=== PATIENT | female | born 1960 | race Caucasian/White ===

== ENCOUNTER → 2019-07-10 15:58 | Outpatient (BNVA) | payer OTHER, SELFPAY | PROVIDERS: Family Provider Family Medicine; PCP Family Medicine; Visit Provider Internal Medicine Rheumatology | DX: M05.9 Rheumatoid arthritis with rheumatoid factor, unspecified (principal); Z79.899 Other long term (current) drug therapy; Z96.653 Presence of artificial knee joint, bilateral; M20.009 Unspecified deformity of unspecified finger(s); F17.210 Nicotine dependence, cigarettes, uncomplicated; J44.9 Chronic obstructive pulmonary disease, unspecified; M85.80 Other specified disorders of bone density and structure, unspecified site; Z79.52 Long term (current) use of systemic steroids | CPT/HCPCS: 36415; 80076; 82565; 85025; 85651; 86140; 99214 ==

== ENCOUNTER 2019-07-23 09:40 | Outpatient (RCR) | payer OTHER, SELFPAY | END 2019-08-05 23:59 | disposition home or self-care (01) | LOC: SOT 09:40 | PROVIDERS: PCP Family Medicine; Referring Provider Internal Medicine Rheumatology; Visit Provider Internal Medicine Rheumatology | DX: M06.9 Rheumatoid arthritis, unspecified (principal); M20.009 Unspecified deformity of unspecified finger(s) | CPT/HCPCS: 97166; L3923 ==

== ENCOUNTER 2019-08-06 06:00 | Outpatient (RCR) | payer OTHER, SELFPAY | END 2019-09-04 23:59 | disposition home or self-care (01) | LOC: SOT 06:00 | PROVIDERS: PCP Family Medicine; Visit Provider Internal Medicine Rheumatology | DX: M06.9 Rheumatoid arthritis, unspecified (principal); M20.009 Unspecified deformity of unspecified finger(s) | CPT/HCPCS: 97018; 97110; 97530 ==

== ENCOUNTER 2019-08-09 14:04 | Outpatient (CLI) | payer OTHER, SELFPAY ==
--- NOTE | 2019-08-09 14:15 | MM_ITS ---
WS: [id number] BILATERAL SCREENING DIGITAL MAMMOGRAM WITH CAD HISTORY: SCREENING COMPARISON: 04/28/2018, 04/22/2017 Bilateral CC and MLO views submitted. Computer aided detection analyzed. Breast composition: The breasts are heterogeneously dense, which may obscure small masses. No suspici ous masses, microcalcifications or architectural distortion. Stable asymmetries and calcifications wi thin each breast. MM/[place] [id number] IMPRESSION: BI-RADS: 2-Benign FOLLOW UP: 1 Year Follow-up
== END 2019-08-09 14:05 | disposition home or self-care (01) ==
LOC: RADSHAW 14:08
PROVIDERS: PCP Family Medicine; Visit Provider Obstetrics & Gynecology
DX: M05.9 Rheumatoid arthritis with rheumatoid factor, unspecified (principal); Z79.899 Other long term (current) drug therapy; M85.80 Other specified disorders of bone density and structure, unspecified site; Z12.31 Encounter for screening mammogram for malignant neoplasm of breast
CPT/HCPCS: 36415; 77067; 80076; 82565; 85025; 85651; 86140

== ENCOUNTER 2019-09-05 06:00 | Outpatient (RCR) | payer OTHER, SELFPAY | END 2019-10-05 23:59 | disposition home or self-care (01) | LOC: SOT 06:00 | PROVIDERS: PCP Family Medicine; Visit Provider Internal Medicine Rheumatology | DX: M06.9 Rheumatoid arthritis, unspecified (principal); M20.009 Unspecified deformity of unspecified finger(s) | CPT/HCPCS: 97530; 97760 ==

== ENCOUNTER → 2019-10-09 14:45 | Outpatient (BNVA) | payer OTHER, SELFPAY | PROVIDERS: PCP Family Medicine; Visit Provider Orthopaedic Surgery | DX: M25.561 Pain in right knee (principal); M25.562 Pain in left knee; G89.29 Other chronic pain | CPT/HCPCS: 73560; 73565 ==

== ENCOUNTER → 2019-10-15 14:41 | Outpatient (BNVA) | payer OTHER, SELFPAY | PROVIDERS: PCP Family Medicine; Visit Provider Internal Medicine Rheumatology | DX: M05.79 Rheumatoid arthritis with rheumatoid factor of multiple sites without organ or systems involvement (principal); Z79.899 Other long term (current) drug therapy; Z96.653 Presence of artificial knee joint, bilateral; F17.210 Nicotine dependence, cigarettes, uncomplicated; Z79.52 Long term (current) use of systemic steroids; J44.9 Chronic obstructive pulmonary disease, unspecified; M85.80 Other specified disorders of bone density and structure, unspecified site | CPT/HCPCS: 99214 ==

== ENCOUNTER → 2019-11-05 13:55 | Outpatient (BNVA) | payer OTHER, SELFPAY | PROVIDERS: PCP Family Medicine; Visit Provider Obstetrics & Gynecology | DX: Z12.4 Encounter for screening for malignant neoplasm of cervix (principal) | CPT/HCPCS: 88175 ==

== ENCOUNTER → 2019-12-04 11:11 | Outpatient (BNVA) | payer OTHER, SELFPAY | PROVIDERS: PCP Family Medicine; Visit Provider Internal Medicine Rheumatology | DX: Z79.899 Other long term (current) drug therapy (principal); Z79.52 Long term (current) use of systemic steroids | CPT/HCPCS: 36415; 80076; 82565; 85025; 85651; 86140 ==

== ENCOUNTER 2020-01-14 14:08 | Outpatient (CLI) | payer OTHER, SELFPAY ==
--- NOTE | 2020-01-14 14:34 | XR_ITS ---
WS: [id number] Bone mineral density performed on a [employer] IDXA, 01/14/2020 Clinical data: Chronic steroid use Comparison study: DEXA scan, 09/27/2016. Findings: The first 4 lumbar vertebral bodies demonstrated the bone mineral density of 0.901 g/cm2 for a young adult T score of -2.3. Measurement of the left hip reveals a bone mineral density of 0.719 g/cm2 with a young adult T score of -2.3. Measurement of the right hip reveals the bone mineral density of 0.686 g/cm2 for young adult T score of -2.6. XR/XR DEXA axial skeleton* [id number] Impression: 1. The bone mineral density lumbar spine shows osteopenia with decreased bone m ineral compared to the prior study. 2. The bone mineral density of the left hip shows osteopenia with decreased bon e mineral compared to the prior study. 3. Bone mineral density of the right hip shows osteoporosis with decreased bone mineral compared to the prior study.
== END 2020-01-14 14:09 | disposition home or self-care (01) ==
LOC: RADWPI 14:12
PROVIDERS: PCP Family Medicine; Visit Provider Internal Medicine Rheumatology
DX: Z79.52 Long term (current) use of systemic steroids (principal)
CPT/HCPCS: 77080

== ENCOUNTER → 2020-02-14 14:14 | Outpatient (BNVA) | payer OTHER, SELFPAY | PROVIDERS: PCP Family Medicine; Visit Provider Internal Medicine Rheumatology | DX: M05.79 Rheumatoid arthritis with rheumatoid factor of multiple sites without organ or systems involvement (principal); Z79.899 Other long term (current) drug therapy; M25.561 Pain in right knee; M25.562 Pain in left knee; G89.29 Other chronic pain; Z96.653 Presence of artificial knee joint, bilateral; M81.0 Age-related osteoporosis without current pathological fracture; J44.9 Chronic obstructive pulmonary disease, unspecified; F17.210 Nicotine dependence, cigarettes, uncomplicated | CPT/HCPCS: 36415; 80076; 82565; 85025; 85651; 86140; 99214 ==

== ENCOUNTER → 2020-06-18 11:08 | Outpatient (BNVA) | payer OTHER, SELFPAY | PROVIDERS: PCP Family Medicine; Visit Provider Internal Medicine Rheumatology | DX: Z79.899 Other long term (current) drug therapy (principal); M05.79 Rheumatoid arthritis with rheumatoid factor of multiple sites without organ or systems involvement | CPT/HCPCS: 36415; 80076; 82565; 85025; 86140 ==

== ENCOUNTER → 2020-06-25 14:19 | Outpatient (BNVA) | payer OTHER, SELFPAY | PROVIDERS: PCP Family Medicine; Visit Provider Internal Medicine Rheumatology | DX: M05.79 Rheumatoid arthritis with rheumatoid factor of multiple sites without organ or systems involvement (principal); M81.0 Age-related osteoporosis without current pathological fracture; Z79.899 Other long term (current) drug therapy; J44.9 Chronic obstructive pulmonary disease, unspecified; F17.210 Nicotine dependence, cigarettes, uncomplicated | CPT/HCPCS: 99214 ==

== ENCOUNTER 2020-09-10 14:11 | Outpatient (CLI) | payer OTHER, SELFPAY ==
--- NOTE | 2020-09-10 14:17 | MM_ITS ---
WS: [id number] BILATERAL SCREENING DIGITAL MAMMOGRAM WITH CAD HISTORY: SCREENING COMPARISON: 08/09/2019, 04/28/2018 and 07/10/2014 and 04/22/2017 Bilateral CC and MLO views submitted. Computer aided detection analyzed. Breast composition: The breasts are heterogeneously dense, which may obscure small masses. No suspici ous masses, microcalcifications or architectural distortion. Bilateral breast asymmetries and calcifi cations are stable. No change since 2018. MM/[place] [id number] IMPRESSION: BI-RADS: 2-Benign FOLLOW UP: 1 Year Follow-up
== END 2020-09-10 14:12 | disposition home or self-care (01) ==
LOC: RADSHAW 14:15
PROVIDERS: PCP Family Medicine; Visit Provider Obstetrics & Gynecology
DX: Z12.31 Encounter for screening mammogram for malignant neoplasm of breast (principal)
CPT/HCPCS: 77067

== ENCOUNTER → 2020-09-25 11:13 | Outpatient (BNVA) | payer OTHER, SELFPAY | PROVIDERS: PCP Family Medicine; Visit Provider Internal Medicine Rheumatology | DX: Z79.899 Other long term (current) drug therapy (principal); M81.0 Age-related osteoporosis without current pathological fracture; M05.79 Rheumatoid arthritis with rheumatoid factor of multiple sites without organ or systems involvement; Z71.89 Other specified counseling | CPT/HCPCS: 36415 ==

== ENCOUNTER 2020-09-25 14:25 | Outpatient (CLI) | payer OTHER, SELFPAY ==
[2020-09-25 14:56] LABS: Basophils # 0.1 10^3/uL (0.0-0.1); Basophils % 0.9 %; Eosinophils % 0.2 %; Hemoglobin 14.4 g/dL (11.5-15.3); Lymphocytes # 1.3 10^3/uL (0.8-4.8); Lymphocytes % 15.8 %; Mean Corpuscular HGB Conc 32.7 g/dL (30.0-36.0); Mean Corpuscular Hemoglobin 30.5 pg (28.0-34.0); Mean Corpuscular Volume 93.2 fL (81-99); Mean Platelet Volume 10.5 fL (7.4-10.4); Monocytes # 0.5 10^3/uL (0.2-0.9); Neutrophils # 6.28 10^3/uL (1.8-7.7); Neutrophils % 76.7 %; Nucleated Red Blood Cells % 0 %; Platelet Count 356 10^3/cmm (130-400); Red Blood Count 4.72 10^6/uL (4.1-5.3); Red Cell Distribution Width 14.2 % (12.1-15.1); White Blood Count 8.2 10^3/uL (4.0-10.0)
[2020-09-25 15:12] LABS: Alanine Aminotransferase 18 U/L (0-33); Albumin Level 4.4 g/dL (3.5-5.2); Alkaline Phosphatase 85 IU/L (35-105); Aspartate Amino Transferase 17 U/L (0-32); C Reactive Protein 2.3 mg/L (0.0-4.9); Globulin 2.5 g/dL (1.3-4.6); Glomerular Filtration Rate 56.4 mL/min (90-130); Total Bilirubin 0.3 mg/dL (0.15-1.2); Total Protein 6.9 g/dL (6.6-8.7)
== END 2020-09-25 14:26 | disposition home or self-care (01) ==
LOC: LAB 14:32
PROVIDERS: PCP Family Medicine; Visit Provider Internal Medicine Rheumatology
DX: M05.79 Rheumatoid arthritis with rheumatoid factor of multiple sites without organ or systems involvement (principal); M81.0 Age-related osteoporosis without current pathological fracture; Z71.89 Other specified counseling; Z79.899 Other long term (current) drug therapy
CPT/HCPCS: 36415; 80076; 82565; 85025; 86140

== ENCOUNTER → 2020-10-01 14:14 | Outpatient (BNVA) | payer OTHER, SELFPAY | PROVIDERS: PCP Family Medicine; Visit Provider Orthopaedic Surgery | DX: Z47.1 Aftercare following joint replacement surgery (principal); Z96.653 Presence of artificial knee joint, bilateral; M25.461 Effusion, right knee | CPT/HCPCS: 73560; 73565 ==

== ENCOUNTER 2020-10-02 12:22 | Outpatient (CLI) | payer OTHER, SELFPAY ==
--- NOTE | 2020-10-02 12:45 | USCV_ITS ---
Sabrina Mendenhall Age: 60 Gender: F : 1960 Exam Date: 10/02/2020 12:37 Ordering Phys: Edmundo Molina MD Technologist: Linda Hussein [place]am [place] [facility] [place]: Left leg pain HISTORY: Left leg pain - posterior calf area PROCEDURES: On the left side, the common femoral, superficial femoral, profunda femoral, popliteal, posterior tibial, greater saphenous veins, and the peroneal trunk were identified and interrogated in the standard fashion. These veins were found to be easily compressible with spontaneous blood flow. In addition, the posterior tibial and peroneal trunk were evaluated. FINDINGS: Negative for DVT and superficial thrombus in left lower extremity CONCLUSIONS No evidence of left lower extremity DVT. Arturo Linares MD (Electronically Signed) Final Date: 02 October 2020 13:51 S
== END 2020-10-02 12:23 | disposition home or self-care (01) ==
PROVIDERS: PCP Family Medicine; Visit Provider Orthopaedic Surgery
DX: M79.662 Pain in left lower leg (principal)
CPT/HCPCS: 93971

== ENCOUNTER → 2020-10-09 14:20 | Outpatient (BNVA) | payer OTHER, SELFPAY | PROVIDERS: PCP Family Medicine; Visit Provider Internal Medicine Rheumatology | DX: M05.79 Rheumatoid arthritis with rheumatoid factor of multiple sites without organ or systems involvement (principal); M81.0 Age-related osteoporosis without current pathological fracture; M25.561 Pain in right knee; M25.562 Pain in left knee; G89.29 Other chronic pain; Z96.653 Presence of artificial knee joint, bilateral; G56.02 Carpal tunnel syndrome, left upper limb; Z79.899 Other long term (current) drug therapy; K21.9 Gastro-esophageal reflux disease without esophagitis; J44.9 Chronic obstructive pulmonary disease, unspecified; Z71.89 Other specified counseling; F17.210 Nicotine dependence, cigarettes, uncomplicated | CPT/HCPCS: 99214 ==

== ENCOUNTER → 2020-10-14 13:06 | Outpatient (BNVA) | payer OTHER, SELFPAY | PROVIDERS: PCP Family Medicine; Visit Provider Podiatrist Foot & Ankle Surgery | DX: M21.612 Bunion of left foot (principal); M77.32 Calcaneal spur, left foot | CPT/HCPCS: 73630 ==

== ENCOUNTER 2020-10-14 14:10 | Outpatient (CLI) | payer OTHER, SELFPAY | END 2020-10-14 14:11 | disposition home or self-care (01) | LOC: SPT 14:11 | PROVIDERS: PCP Family Medicine; Visit Provider Podiatrist Foot & Ankle Surgery | DX: Z46.89 Encounter for fitting and adjustment of other specified devices (principal); M20.009 Unspecified deformity of unspecified finger(s); M06.9 Rheumatoid arthritis, unspecified | CPT/HCPCS: 97760; L4361 ==

== ENCOUNTER 2020-10-23 14:54 | Outpatient (CLI) | payer OTHER, SELFPAY ==
--- NOTE | 2020-10-23 15:00 | US_ITS ---
WS: [id number] Subcutaneous ultrasound of the left second interspace of the foot, 10/23/2020 Clinical Data: pain Comparison: None. Findings: The heads of the metatarsals were identified. The soft tissue showed no abnormal signal. No Vigil's neuroma was identified. There were no cysts or masses. US/US soft tissue/extremity [id number] Impression: Negative subcutaneous ultrasound of the left second interspace of the foot.
== END 2020-10-23 14:55 | disposition home or self-care (01) ==
LOC: RAD 14:56
PROVIDERS: PCP Family Medicine; Visit Provider Podiatrist Foot & Ankle Surgery
DX: G57.62 Lesion of plantar nerve, left lower limb (principal)
CPT/HCPCS: 76882

== ENCOUNTER 2020-10-29 14:48 | Outpatient (CLI) | payer OTHER, SELFPAY ==
--- NOTE | 2020-10-29 14:52 | MR_ITS ---
WS: [id number] MRI OF THE LEFT LOWER EXTREMITY WITHOUT GADOLINIUM ENHANCEMENT INDICATION: Leg pain TECHNIQUE: Sagittal T1, sagittal STIR, coronal STIR, axial T2 FINDINGS: Postoperative changes left TKA. Susceptibly artifact degrades some images. Normal bone lemuel ow signal in the tibia. Normal fibula. Diffuse subcutaneous edema left lower leg. Recommend correlati on for cellulitis. No evidence of drainable abscess or fluid collection. No focal abnormalities in th e area of palpable concern left lower leg. Tenosynovitis along the flexor hallucis longus. MR/MR lower leg LT con* [id number] IMPRESSION: 1. Prior postoperative changes left TKA. 2. Normal bone marrow signal in the tibia and fibula. 3. No evidence of drainable abscess or fluid collection. 4. Subcutaneous edema left lower leg. Recommend correlation for cellulitis. 5. No drainable abscess or fluid collection.
== END 2020-10-29 14:49 | disposition home or self-care (01) ==
LOC: RADSHAW 14:50
PROVIDERS: PCP Family Medicine; Visit Provider Podiatrist Foot & Ankle Surgery
DX: S89.92XA Unspecified injury of left lower leg, initial encounter (principal); X58.XXXA Exposure to other specified factors, initial encounter; Z96.652 Presence of left artificial knee joint
CPT/HCPCS: 73718

== ENCOUNTER → 2020-12-03 15:03 | Outpatient (BNVA) | payer OTHER, SELFPAY | PROVIDERS: PCP Family Medicine; Referring Provider Family Medicine; Visit Provider Specialist | DX: M79.662 Pain in left lower leg (principal); G62.89 Other specified polyneuropathies; Z96.653 Presence of artificial knee joint, bilateral | CPT/HCPCS: 95908; 95909 ==

== ENCOUNTER → 2021-01-21 09:33 | Outpatient (BNVA) | payer OTHER, SELFPAY | PROVIDERS: PCP Family Medicine; Referring Provider Physical Medicine & Rehabilitation; Visit Provider Anesthesiology Pain Medicine | DX: G89.29 Other chronic pain (principal); G62.9 Polyneuropathy, unspecified; Z96.653 Presence of artificial knee joint, bilateral | CPT/HCPCS: 99204 ==

== ENCOUNTER → 2021-01-26 10:57 | Outpatient (BNVA) | payer OTHER, SELFPAY | PROVIDERS: PCP Family Medicine; Visit Provider Internal Medicine Rheumatology | DX: M81.0 Age-related osteoporosis without current pathological fracture (principal); M05.79 Rheumatoid arthritis with rheumatoid factor of multiple sites without organ or systems involvement; Z79.899 Other long term (current) drug therapy | CPT/HCPCS: 36415; 80076; 82565; 85025; 86140 ==

== ENCOUNTER 2021-05-07 16:01 | Outpatient (CLI) | payer OTHER, SELFPAY ==
[2021-05-07 15:06] LABS: Basophils # 0.1 10^3/uL (0.0-0.1); Basophils % 0.7 %; Eosinophils # 0.2 10^3/uL (0.0-0.8); Eosinophils % 2.1 %; Hematocrit 46.1 % (37.0-47.0); Hemoglobin 14.9 g/dL (11.5-15.3); Lymphocytes # 1.7 10^3/uL (0.8-4.8); Lymphocytes % 16.2 %; Mean Corpuscular HGB Conc 32.3 g/dL (30.0-36.0); Mean Corpuscular Hemoglobin 30.7 pg (28.0-34.0); Mean Corpuscular Volume 95.1 fl (81-99); Mean Platelet Volume 11.3 fL (7.4-10.4); Monocytes # 0.9 10^3/uL (0.2-0.9); Monocytes % 8.7 %; Neutrophils # 7.58 10^3/uL (1.8-7.7); Nucleated Red Blood Cells % 0 %; Platelet Count 322 10^3/cmm (130-400); Red Blood Count 4.85 10^6/uL (4.1-5.3); Red Cell Distribution Width 13.7 % (12.1-15.1); White Blood Count 10.5 10^3/uL (4.0-10.0)
[2021-05-07 15:10] LABS: Alanine Aminotransferase 10 U/L (0-33); Albumin Level 4.5 g/dL (3.5-5.2); Alkaline Phosphatase 103 IU/L (35-105); Aspartate Amino Transferase 17 U/L (0-32); C Reactive Protein 4.9 mg/L (0.0-4.9); Glomerular Filtration Rate 85.1 mL/min (90-130); Total Bilirubin 0.3 mg/dL (0.15-1.2); Total Protein 7.5 g/dL (6.6-8.7)
== END 2021-05-07 16:02 | disposition home or self-care (01) ==
LOC: LAB 16:02
PROVIDERS: PCP Family Medicine; Visit Provider Internal Medicine Rheumatology
DX: M05.79 Rheumatoid arthritis with rheumatoid factor of multiple sites without organ or systems involvement (principal); Z79.899 Other long term (current) drug therapy
CPT/HCPCS: 80076; 82565; 85025; 86140

== ENCOUNTER 2021-06-12 15:16 | Outpatient (CLI) | payer OTHER, SELFPAY ==
[2021-06-12 15:56] LABS: Basophils # 0.1 10^3/uL (0.0-0.1); Basophils % 0.9 %; Eosinophils # 0.2 10^3/uL (0.0-0.8); Eosinophils % 2.2 %; Hematocrit 45.1 % (37.0-47.0); Hemoglobin 14.4 g/dL (11.5-15.3); Lymphocytes # 1.8 10^3/uL (0.8-4.8); Lymphocytes % 19.2 %; Mean Corpuscular HGB Conc 31.9 g/dL (30.0-36.0); Mean Corpuscular Hemoglobin 30.3 pg (28.0-34.0); Mean Corpuscular Volume 94.9 fl (81-99); Mean Platelet Volume 10.6 fL (7.4-10.4); Monocytes # 0.9 10^3/uL (0.2-0.9); Monocytes % 9.7 %; Neutrophils # 6.19 10^3/uL (1.8-7.7); Neutrophils % 67.7 %; Nucleated Red Blood Cells % 0 %; Platelet Count 364 10^3/cmm (130-400); Red Blood Count 4.75 10^6/uL (4.1-5.3); Red Cell Distribution Width 13.2 % (12.1-15.1); White Blood Count 9.2 10^3/uL (4.0-10.0)
[2021-06-12 16:27] LABS: Alanine Aminotransferase 11 U/L (0-33); Albumin Level 4.3 g/dL (3.5-5.2); Alkaline Phosphatase 124 IU/L (35-105); Aspartate Amino Transferase 15 U/L (0-32); C Reactive Protein 5.1 mg/L (0.0-4.9); Glomerular Filtration Rate 85.1 mL/min (90-130); Total Bilirubin 0.2 mg/dL (0.15-1.2); Total Protein 7.3 g/dL (6.6-8.7)
== END 2021-06-12 15:17 | disposition home or self-care (01) ==
PROVIDERS: PCP Family Medicine; Visit Provider Internal Medicine Rheumatology
DX: M05.79 Rheumatoid arthritis with rheumatoid factor of multiple sites without organ or systems involvement (principal); Z79.899 Other long term (current) drug therapy; M19.90 Unspecified osteoarthritis, unspecified site
CPT/HCPCS: 80076; 82565; 85025; 86140

== ENCOUNTER 2021-09-28 12:40 | Outpatient (CLI) | payer OTHER, SELFPAY ==
--- NOTE | 2021-09-28 13:01 | MM_ITS ---
WS: [id number] BILATERAL 3D TOMOSYNTHESIS DIGITAL SCREENING MAMMOGRAPHY WITH CAD CLINICAL INFORMATION: SCREENING HISTORY: Screening mammogram. No current complaints. COMPARISON: September 10, 2020 TECHNIQUE: Bilateral CC and MLO views. FINDINGS: The breasts are composed of heterogeneous fibroglandular density tissue, which can limit the detectio n of small underlying mass lesions. Punctate and lucent centered calcifications. No suspicious mass, asymmetry, calcifications, or architectural distortion. No evidence of malignancy. MM/[place] [id number] IMPRESSION: BI-RADS: 2-Benign FOLLOW UP: 1 Year Follow-up Recommend return to annual screening mammography.
== END 2021-09-28 12:41 | disposition home or self-care (01) ==
LOC: RAD 12:41
PROVIDERS: PCP Family Medicine; Visit Provider Obstetrics & Gynecology
DX: Z12.31 Encounter for screening mammogram for malignant neoplasm of breast (principal)
CPT/HCPCS: 77063; 77067

== ENCOUNTER → 2021-09-30 16:31 | Outpatient (BNVA) | payer OTHER, SELFPAY | PROVIDERS: PCP Family Medicine; Visit Provider Clinical Nurse Specialist Adult Health | DX: J06.9 Acute upper respiratory infection, unspecified (principal); J44.1 Chronic obstructive pulmonary disease with (acute) exacerbation; U07.1 COVID-19 | CPT/HCPCS: 87426 ==

== ENCOUNTER 2021-10-27 15:37 | Outpatient (CLI) | payer OTHER, SELFPAY ==
--- NOTE | 2021-10-27 16:01 | XRR_ITS ---
PROCEDURE INFORMATION: Exam: XR Chest Exam date and time: 10/27/2021 4:03 PM Age: 61 years old Clinical indication: Cough and shortness of breath; Patient HX: Cough/ sob/ chest pain, for 3 weeks HX of covid 3 weeks ago TECHNIQUE: Imaging protocol: Radiologic exam of the chest. Views: 2 views. COMPARISON: CR Chest 2 views* [id number] 08/03/2018 2:37 PM FINDINGS: Lungs: There is chronic lung change. No acute pneumonia or edema. Pleural spaces: Unremarkable. No pleural effusion. No pneumothorax. Heart/Mediastinum: Unremarkable. No cardiomegaly. Bones/joints: There is a midthoracic spine kyphosis. There is osteopenia. XR/XR chest 2V* [id number] IMPRESSION: There are no acute concerning abnormalities.
== END 2021-10-27 15:38 | disposition home or self-care (01) ==
PROVIDERS: PCP Family Medicine; Visit Provider Family Medicine
DX: R07.9 Chest pain, unspecified (principal); R60.0 Localized edema
CPT/HCPCS: 71046

== ENCOUNTER → 2021-12-07 15:26 | Day surgery (SDC) | payer OTHER, SELFPAY | PROVIDERS: PCP Family Medicine; Visit Provider Registered Nurse Neonatal Intensive Care | DX: M25.531 Pain in right wrist (principal) | CPT/HCPCS: 73110 ==

== ENCOUNTER → 2022-01-19 14:33 | Outpatient (BNVA) | payer OTHER, SELFPAY | PROVIDERS: PCP Family Medicine; Visit Provider Family Medicine | DX: K64.9 Unspecified hemorrhoids (principal); R19.7 Diarrhea, unspecified | CPT/HCPCS: 83630; 87177; 87209; 87493; 87506 ==

== ENCOUNTER 2022-02-01 15:22 | Outpatient (CLI) | payer OTHER, SELFPAY ==
[2022-02-01 15:49] LABS: Basophils # 0.1 10^3/uL (0.0-0.1); Basophils % 0.5 %; Eosinophils # 0.3 10^3/uL (0.0-0.8); Eosinophils % 2.8 %; Hematocrit 38.1 % (37.0-47.0); Hemoglobin 12.6 g/dL (11.5-15.3); Lymphocytes # 1.1 10^3/uL (0.8-4.8); Lymphocytes % 10.1 %; Mean Corpuscular HGB Conc 33.1 g/dL (30.0-36.0); Mean Corpuscular Hemoglobin 30.5 pg (28.0-34.0); Mean Corpuscular Volume 92.3 fl (81-99); Mean Platelet Volume 9.3 fL (7.4-10.4); Monocytes # 0.8 10^3/uL (0.2-0.9); Monocytes % 7.4 %; Neutrophils # 8.12 10^3/uL (1.8-7.7); Neutrophils % 78.4 %; Nucleated Red Blood Cells % 0 %; Platelet Count 361 10^3/cmm (130-400); Red Blood Count 4.13 10^6/uL (4.1-5.3); White Blood Count 10.4 10^3/uL (4.0-10.0)
[2022-02-01 16:07] LABS: Alanine Aminotransferase 10 U/L (0-33); Alkaline Phosphatase 103 U/L (35-105); Aspartate Amino Transferase 14 U/L (0-32); C Reactive Protein 18.7 mg/L (0.0-4.9); Globulin 2.7 g/dL (1.3-4.6); Glomerular Filtration Rate 72.7 mL/min (90-130); Total Bilirubin 0.2 mg/dL (0.15-1.2); Total Protein 6.7 g/dL (6.6-8.7)
== END 2022-02-01 15:23 | disposition home or self-care (01) ==
PROVIDERS: PCP Family Medicine; Visit Provider Internal Medicine Rheumatology
DX: M05.79 Rheumatoid arthritis with rheumatoid factor of multiple sites without organ or systems involvement (principal); Z79.899 Other long term (current) drug therapy
CPT/HCPCS: 80076; 82565; 85025; 86140

== ENCOUNTER 2022-03-02 15:11 | Outpatient (CLI) | payer OTHER, SELFPAY ==
--- NOTE | 2022-03-02 15:00 | USCV_ITS ---
Sabrina Mendenhall Age: 61 Gender: F : 1960 Exam Date: 03/02/2022 15:24 Ordering Phys: Gunnar Corey MD Technologist: PANCHO [place] [facility] [place]: CHEST PAIN BP: 92 / 68 HR: 60 Rhythm: Sinus Technical Quality: Adequate MEASUREMENTS (Male / Female) Normal Values 2D ECHO LVOT Diameter 2.0 cm LV Ejection Fraction MOD 2C 69.2 % LV Ejection Fraction 2C AL 71.2 % LA Diameter 2.9 cm LA Width 2.7 cm LA Height 4.1 cm RA Width 2.7 cm RA Height 3.4 cm Aorta at Sinotubular Diameter 2.3 cm IVC Diameter 1.3 cm M-MODE Aortic Annulus Diameter 2.6 cm LA Ao Ratio MM 1.2 MV E Point Septal Separation 0.3 cm DOPPLER AV Peak Velocity 133.0 cm/s LVOT Peak Velocity 74.7 cm/s AV Area Cont Eq vti 1.7 cm squared AV Area Cont Eq pk 1.8 cm squared MV Peak Velocity 90.0 cm/s MV Area PHT 2.8 cm squared Mitral E to A Ratio 1.2 MV E' Velocity 48.0 cm/s Mitral E to MV E' Ratio 7.2 Mitral E to LV E' Lateral Ratio 6.9 Mitral E to LV E' Septal Ratio 7.5 TR Peak Velocity 179.0 cm/s TR Peak Gradient 12.8 mmHg TR Mean Velocity 217.2 cm/s TR Mean Gradient 20.2 mmHg TR Velocity Time Integral 82.9 cm Right Atrial Pressure 3.0 mmHg Pulmonary Artery Systolic Pressu 15.8 mmHg PV Peak Velocity 104.0 cm/s RV Acceleration Time 0.1 s RV Ejection Time 0.3 s RV AcT/ET 0.5 FINDINGS Left Ventricle Normal left ventricular size, systolic function and wall thickness, with no regional wall motion abnormalities. Left ventricular ejection fraction is estimated at 60 %. Normal diastolic function. Right Ventricle Normal right ventricular size and systolic function. Right ventricular systolic pressure 32 mmHg. Right Atrium Normal right atrial size. Left Atrium Normal left atrial size. Mitral Valve Structurally normal mitral valve. No mitral valve stenosis. No mitral valve stenosis. No mitral valve regurgitation. Aortic Valve Structurally normal trileaflet aortic valve. No aortic valve stenosis. No aortic valve regurgitation. Tricuspid Valve Structurally normal tricuspid valve. No tricuspid valve stenosis. Trace to mild tricuspid valve regurgitation. Pulmonic Valve Pulmonic valve not well visualized. Pericardium No pericardial effusion. Aorta Normal size aortic root and proximal ascending aorta. IVC Normal IVC dimension with >50% respiratory change of the inferior vena cava. CONCLUSIONS 1. Normal left ventricular size, systolic function and wall thickness, with no regional wall motion abnormalities. Left ventricular ejection fraction is estimated at 60 %. Normal diastolic function. 2. Trace to mild tricuspid valve regurgitation. 3. Pulmonary artery pressure estimated at 32 mm Hg. 4. No prior similar studies to compare. Amena Jiang MD (Electronically Signed) Final Date: 06 March 2022 15:35 S
== END 2022-03-02 15:12 | disposition home or self-care (01) ==
LOC: RAD 15:12
PROVIDERS: PCP Family Medicine; Visit Provider Family Medicine
DX: R07.9 Chest pain, unspecified (principal); R60.0 Localized edema; I07.1 Rheumatic tricuspid insufficiency
CPT/HCPCS: 93306

== ENCOUNTER 2022-03-25 05:12 | Inpatient (IN) | payer OTHER, SELFPAY ==
[2022-03-25] VITALS (19 sets, daily range): BP systolic 101–123; BP diastolic 67–83; PULSE 81–98; RESP 18–28; TEMP 36.4–36.8; O2SAT 90–95; BMI 24.0
--- NOTE | 2022-03-25 05:13 | XRR_ITS ---
PROCEDURE INFORMATION: Exam: XR Chest Exam date and time: 03/25/2022 5:16 AM Age: 61 years old Clinical indication: Shortness of breath; Left-sided; Prior surgery; Surgery type: Cervical fusion. RT rotator cuff. Patient HX: C/O left sided chest pain with SOB. Hypoxic on room air. ; Additional info: Cp TECHNIQUE: Imaging protocol: Radiologic exam of the chest. Views: 1 view. COMPARISON: CR XR chest 2V* [id number] 27/10/2021 16:03 FINDINGS: Lungs: Advanced COPD. Bibasilar opacities and small effusions have increased. Increasing right midlung hazy airspace disease. Pleural spaces: No pneumothorax. Heart/Mediastinum: The heart is normal size. Bones/joints: Lower cervical fusion. Mild scoliosis. Right humeral head screw. XR/XR chest 1V portable [id number] IMPRESSION: 1. Increasing areas of chgt-ynmbbil-krbq-right bibasilar atelectasis or airspace disease and small effusions. 2. Increasing right midlung atelectasis, scarring, or pneumonitis. 3. COPD and other chronic findings again noted.
--- NOTE | 2022-03-25 05:19 | ED_ITS ---
Documented by User: Colt Valle MD 03/25/22 05:35 HPI - Chest Pain General: Chief Complaint: Chest Pain Stated Complaint: CP Time Seen by Provider: 03/25/22 05:12 Source: patient and EMS Mode of arrival: EMS Limitations: no limitations History of Present Illness: 61-year-old female who states that she has had a chronic cough since having COVID last year she states the cough is worsened states that she has been having some sharp chest pains to the left side of her chest since this morning. When EMS arrived patient was hypoxic she is requiring 2 to 3 L of oxygen here. She had some mild dyspnea she denies any worsening improving factors denies any vomiting. Associated symptoms: Deny abdominal pain, dyspnea, fever(s), nausea or vomiting Review of Systems Const: Denies: fever(s), chills, body aches or change in appetite Eyes: Denies: blurry vision or eye discomfort ENMT: Denies: throat pain or dental pain Card: Reports: chest pain Resp: Denies: dyspnea GI: Denies: abdominal pain, nausea, vomiting or diarrhea : Denies: dysuria Musc: Denies: neck pain or back pain Skin/Breast: Denies: rash Neuro: Denies: headache(s) Psych: Denies: depression Colt/Lymph: Denies: easy bruising All/Imm: Denies: urticaria PFSH ED PFSH: Medical History Benign essential HTN Diagnosed in 2019 and is well controlled by medications managed by [facility]. 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 S/P right rotator cuff repair Performed in June of 2012 S/P tubal ligation Performed in the early Status post bilateral knee replacements Performed in 2018 Family History Father Hyperlipidemia Hypertension Grandmother Stroke paternal Heart disease paternal Mother Heart disease Denies family history of Colon cancer Ovarian cancer Diabetes DVT (deep venous thrombosis) Breast cancer Anesthesia complication Bleeding disorder Pulmonary embolism Uterine cancer Thyroid condition Social History Smoking and tobacco status: current every day smoker cigarettes [ Other cigaret te details: started at age 16] Alcohol intake: current Alcohol intake frequency: holidays/special occasions only Current occupational status: employed Current occupation: [employer] History of recent travel: No Additional social history: has a suppressed immune system Physical Exam Const: COMMON NORMALS: patient oriented x3 HENMT: COMMON NORMALS: normocephalic and atraumatic HEAD & SCALP: normocephalic and atraumatic Eye: COMMON NORMALS: Equal, round and reactive pupils present and EOMs intact bilaterally PUPIL: Yes Equal, round and reactive pupils present Neck/C-Spine: COMMON NORMALS: full ROM and supple Chest: COMMONS NORMALS: normal inspection of the chest OTHER: point tender over left chest Resp: COMMON NORMALS: No retractions and No use of accessory muscles AUSCULTATION: rales and wheezes Cardio: COMMON NORMALS: regular rate, regular rhythm and No murmurs present (Cardio) RATE: regular rate RHYTHM: regular rhythm GI: COMMON NORMALS: Normal to inspection, nondistended, normoactive bowel sounds present, Soft to palpation, non-tender and no masses PALPATION: Yes Soft to palpation Extremity: COMMON NORMALS: normal to inspection and full ROM Neuro: COMMON NORMALS: patient oriented x3, moves all extremities and no focal motor deficits Psych: COMMON NORMALS: mental status grossly normal, Normal thought process present and cooperative THOUGHT PROCESS: Normal thought process present Skin: COMMON NORMALS: no rashes or lesions noted and no wounds GENERAL SKIN EXAM: no rashes or lesions noted Course Vital Signs: Vital signs: Vital Signs Pulse Rate 90 03/25/22 09:05 Respiratory Rate 28 H 03/25/22 08:00 Blood Pressure 120/80 03/25/22 09:05 Pulse Oximetry 93 03/25/22 09:05 Oxygen Delivery Me thod 03/25/22 09:05 Oxygen Flow Rate 3 03/25/22 09:05 MDM - Chest Pain Lab Data 03/25/22 05:35 03/25/22 05:35 Radiology Impressions Chest X-Ray 03/25/22 05:13 IMPRESSION: 1. Increasing areas of mfbw-hshcklk-obxk-right bibasilar atelectasis or airspace disease and small effusions. 2. Increasing right midlung atelectasis, scarring, or pneumonitis. 3. COPD and other chronic findings again noted. Chest CTA 03/25/22 06:42 IMPRESSION: 1. 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 2. Tiny subacute to chronic pulmonary embolus in the right lower lobe. ADDENDUM: 03/25/22 0821 THIS REPORT CONTAINS FINDINGS THAT MAY BE CRITICAL TO PATIENT CARE. The exam findings were verbally communicated by me via telephone conference to BENJIE BEASLEY at 8:12 AM SPEECH PATHOLOGY TEACHER on 03/25/2022. The findings were acknowledged and understood. Laboratory Results WBC 17.2 10^3/uL (4.0-10.0) H 03/25/22 05:35 RBC 4.68 10^6/uL (4.1-5.3) 03/25/22 05:35 Hgb 14.4 g/dL (11.5-15.3) 03/25/22 05:35 Hct 43.2 % (37.0-47.0) 03/25/22 05:35 MCV 92.3 fl (81-99) 03/25/22 05:35 MCH 30.8 pg (28.0-34.0) 03/25/22 05:35 MCHC 33.3 g/dL (30.0-36.0) 03/25/22 05:35 RDW 13.8 % (12.1-15.1) 03/25/22 05:35 Plt Count 371 10^3/cmm (130-400) 03/25/22 05:35 MPV 9.3 fL (7.4-10.4) 03/25/22 05:35 Neut % (Auto) 84.6 % 03/25/22 05:35 Lymph % (Auto) 2.4 % 03/25/22 05:35 [place] % (Auto) 10.0 % 03/25/22 05:35 Eos % (Auto) 1.9 % 03/25/22 05:35 Baso % (Auto) 0.5 % 03/25/22 05:35 Neut # (Auto) 14.54 10^3/uL (1.8-7.7) H 03/25/22 05:35 Lymph # (Auto) 0.4 10^3/uL (0.8-4.8) L 03/25/22 05:35 [place] # (Auto) 1.7 10^3/uL (0.2-0.9) H 03/25/22 05:35 Eos # (Auto) 0.3 10^3/uL (0.0-0.8) 03/25/22 05:35 Baso # (Auto) 0.1 10^3/uL (0.0-0.1) 03/25/22 05:35 Nucleated RBC % (auto) 0 % 03/25/22 05:35 Nucleated RBCs # 0.0 /100WBC 03/25/22 05:35 D-Dimer 3.83 ug/mIFEU (0-0.59) H 03/25/22 05:35 Sodium 133 mmol/L (136-145) L 03/25/22 05:35 Potassium 4.2 mmol/L (3.5-5.1) 03/25/22 05:35 Chloride 96 mmol/L (98-107) L 03/25/22 05:35 Carbon Dioxide 22 mmol/L (22-29) 03/25/22 05:35 Anion Gap 19.2 (5-19) H 03/25/22 05:35 BUN 18 mg/dL (8-23) 03/25/22 05:35 Creatinine 0.8 mg/dL (0.5-0.9) 03/25/22 05:35 GFR Calculation 72.7 mL/min (90-130) L 03/25/22 05:35 Glucose 108 mg/dL (65-115) 03/25/22 05:35 Calculated Osmolality 278 mOsm/kg (285-295) L 03/25/22 05:35 Calcium 9.3 mg/dL (8.5-10.5) 03/25/22 05:35 Total Bilirubin 0.5 mg/dL (0.15-1.2) 03/25/22 05:35 AST 10 U/L (0-32) 03/25/22 05:35 ALT 9 U/L (0-33) 03/25/22 05:35 Alkaline Phosphatase 90 U/L (35-105) 03/25/22 05:35 Troponin T Baseline 12 ng/L (0-10) H 03/25/22 05:35 Troponin T 120 Minute 9.56 ng/L (0-10) 03/25/22 07:50 Delta Troponin T -2.44 ABS# (0-10) L 03/25/22 07:50 Total Protein 7.4 g/dL (6.6-8.7) 03/25/22 05:35 Albumin 4.1 g/dL (3.5-5.2) 03/25/22 05:35 Globulin 3.3 g/dL (1.3-4.6) 03/25/22 05:35 Influenza Type A Ag negative (Negative) 03/25/22 05:35 Influenza Type B Ag negative (Negative) 03/25/22 05:35 SARS-CoV-2 Ag (Rapid) negative (Negative) 03/25/22 05:35 Discharge Plan Discharge Patient Disposition: Admitted As Inpatient Clinical Impression: Pneumonia, Acute exacerbation of chronic obstructive pulmonary disease (COPD), Acute respiratory failure with hypoxia, Mass of right lung Condition: Stable Prescriptions: No Action albuterol sulfate 90 mcg/actuation HFA aerosol inhaler 1 inh inhalation QID PRN (Reason: shortness of breath or wheezing) Qty: 8.5 1RF Xeljanz 5 mg tablet 5 mg PO BID Qty: 60 4RF prednisone 5 mg tablet 5 mg PO DAILY Qty: 90 1RF gabapentin 400 mg capsule 400 mg PO TID potassium chloride [Klor-Con 10] 10 mEq tablet extended release 10 meq PO DAILY Qty: 30 6RF Rx Instructions: Take one tab daily on days that you are taking furosemide amlodipine 10 mg tablet 5 mg PO DAILY furosemide 20 mg tablet See Rx Instructions .ROUTE .COMPLEX Qty: 30 3RF Dose Instruction: TAKE ONE TABLET BY MOUTH IN THE MORNING FOR TWO weeks THEN NEEDED FOR swelling Rx Instructions: TAKE ONE TABLET BY MOUTH IN THE MORNING FOR TWO weeks THEN NEEDED FOR swelling Vitamin B-12 100 mcg Tablet 100 mcg PO DAILY omeprazole 40 mg capsule,delayed release(DR/EC) 40 mg PO DAILY lisinopril-hydrochlorothiazide 10-12.5 mg tablet 1 tab PO DAILY Referrals: Gunnar Corey MD [Primary Care Provider] - Coding Level of Care Code ED Marketing Communications Coordinator for Chg Fwd Exam Comprehensive Documented by User: Benjie Beasley DO 03/25/22 09:22 HPI - Chest Pain General: Chief Complaint: Chest Pain Stated Complaint: CP Time Seen by Provider: 03/25/22 05:12 PFSH ED PFSH: Medical History Benign essential HTN Diagnosed in 2018 and is well controlled by medications managed by her primary care provider. 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 Bilateral lower extremity edema Hemorrhoids High risk medication use Immunization counseling Seropositive rheumatoid arthritis of multiple sites Surgical History S/p bilateral carpal tunnel release Left side performed in January, Right side performed in March, S/P cervical spinal fusion Performed in January 2009 S/P dilation and curettage Had 3 D&Cs performed for miscarriages and the last for gestational tropho blastic disease S/P right rotator cuff repair Performed in June of 2012 S/P tubal ligation Performed in the early Status post bilateral knee replacements Performed in 2018 Family History Father Hyperlipidemia Hypertension Grandmother Stroke paternal Heart disease paternal Mother Heart disease Denies family history of Colon cancer Ovarian cancer Diabetes DVT (deep venous thrombosis) Breast cancer Anesthesia complication Bleeding disorder Pulmonary embolism Uterine cancer Thyroid condition Social History Smoking and tobacco status: current every day smoker cigarettes [ Other cigarette details: started at age 16] Alcohol intake: current Alcohol intake frequency: holidays/special occasions only Current occupational status: employed Current occupation: [employer] History of recent travel: No Additional social history: has a suppressed immune system Course Vital Signs: Vital signs: Vital Signs Pulse Rate 90 03/25/22 09:05 Respiratory Rate 28 H 03/25/22 08:00 Blood Pressure 120/80 03/25/22 09:05 Pulse Oximetry 93 03/25/22 09:05 Oxygen Delivery Me thod 03/25/22 09:05 Oxygen Flow Rate 3 03/25/22 09:05 MDM - Chest Pain Medical Decision Making Patient care assumed from Dr. Valle at change of shift she has a pneumonia with a white count of 17,[address] shows right hilar mass with s ignificant mediastinal lymphadenopathy likely bronchogenic in nature. There is a chronic distal right lower lung segment very small PE. Discussed with radiologist he did not feel it was acute. She also has left lower lung consolidation. She is requiring 4 L by nasal cannula now and will require admission to the hospital and further work-up at some point of the concerning findings in the right hilum. Medical Records I reviewed the patient's medical records. Lab Data I reviewed the patient's lab results. 03/25/22 05:35 03/25/22 05:35 Radiology Impressions Chest X-Ray 03/25/22 05:13 IMPRESSION: 1. Increasing areas of xhlb-jdhnqqg-xdsw-right bibasilar atelectasis or airspace disease and small effusions. 2. Increasing right midlung atelectasis, scarring, or pneumonitis. 3. COPD and other chronic findings again noted. Chest CTA 03/25/22 06:42
--- NOTE | 2022-03-25 05:33 | ECG_ITS ---
[facility] Test Date: 2022-03-25 Pat Name: Sabrina Mendenhall Department: Room: Gender: Female Qualitative Field Project Manager: : 1960 Requested By: Colt Valle Order Number: [id number] Cristhian MD: Tenzin Weiss M.D. Measurements Intervals [place] Rate: 87 P: 70 IA: 126 QRS: 56 QRSD: 71 T: 78 QT: 350 QTc: 423 Interpretive Statements SINUS RHYTHM Compared to ECG 08/03/2018 14:09:46 No significant changes Electronically Signed On 03-25-2022 14:44:34 PROVIDER ENGAGEMENT EXECUTIVE by Tenzin Weiss M.D. [id number]
[2022-03-25 05:45] LABS: Basophils # 0.1 10^3/uL (0.0-0.1); Basophils % 0.5 %; Eosinophils # 0.3 10^3/uL (0.0-0.8); Eosinophils % 1.9 %; Hematocrit 43.2 % (37.0-47.0); Hemoglobin 14.4 g/dL (11.5-15.3); Lymphocytes # 0.4 10^3/uL (0.8-4.8); Lymphocytes % 2.4 %; Mean Corpuscular HGB Conc 33.3 g/dL (30.0-36.0); Mean Corpuscular Hemoglobin 30.8 pg (28.0-34.0); Mean Corpuscular Volume 92.3 fl (81-99); Mean Platelet Volume 9.3 fL (7.4-10.4); Monocytes # 1.7 10^3/uL (0.2-0.9); Neutrophils # 14.54 10^3/uL (1.8-7.7); Neutrophils % 84.6 %; Nucleated Red Blood Cells % 0 %; Platelet Count 371 10^3/cmm (130-400); Red Blood Count 4.68 10^6/uL (4.1-5.3); Red Cell Distribution Width 13.8 % (12.1-15.1); White Blood Count 17.2 10^3/uL (4.0-10.0)
[2022-03-25] MEDS: cefTRIAXone 1,000 MG in sodium chloride 0.9% (plus) 50 ML 100 MG IV (05:51)
[2022-03-25] MEDS: azithromycin 500 MG in sodium chloride 0.9% 250 ML 250 MG IV (05:51)
[2022-03-25] MEDS: albuterol 2.5 mg/3 mL Neb INHALATION (06:00)
[2022-03-25] MEDS: ipratropium 0.5 mg/2.5 mL Neb INHALATION (06:00)
[2022-03-25 06:03] LABS: Alanine Aminotransferase 9 U/L (0-33); Albumin Level 4.1 g/dL (3.5-5.2); Alkaline Phosphatase 90 U/L (35-105); Anion Gap 19.2 (5-19); Aspartate Amino Transferase 10 U/L (0-32); Blood Urea Nitrogen 18 mg/dL (8-23); Calcium 9.3 mg/dL (8.5-10.5); Carbon Dioxide 22 mmol/L (22-29); Chloride 96 mmol/L (98-107); Globulin 3.3 g/dL (1.3-4.6); Glomerular Filtration Rate 72.7 mL/min (90-130); Glucose 108 mg/dL (65-115); Osmolality Calculated 278 mOsm/kg (285-295); Potassium 4.2 mmol/L (3.5-5.1); Sodium 133 mmol/L (136-145); Total Bilirubin 0.5 mg/dL (0.15-1.2); Total Protein 7.4 g/dL (6.6-8.7)
[2022-03-25 06:04] LABS: Troponin(5th) Baseline 12 ng/L (0-10)
[2022-03-25 06:11] LABS: Influenza A by IFA negative (Negative); Influenza B by IFA negative (Negative)
[2022-03-25 06:21] LABS: D Dimer 3.83 ug/mIFEU (0-0.59)
[2022-03-25 06:34] LABS: SARS Covid-2 Antigen negative (Negative)
--- NOTE | 2022-03-25 06:42 | CTR_ITS ---
PROCEDURE INFORMATION: Exam: CTA Chest With Contrast Exam date and time: 03/25/2022 7:36 AM Age: 61 years old Clinical indication: Abnormal findings; Abnormal diagnostic tests; Elevated d-dimer; Cough and shortness of breath; Additional info: Dyspnea/elevated d dimer/hypoxia TECHNIQUE: Imaging protocol: Computed tomographic angiography of the chest with contrast. 3D rendering (Not supervised by radiologist): MIP and/or 3D reconstructed images were created by the technologist. Radiation optimization: All CT scans at this facility use at least one of these dose optimization techniques: automated exposure control; mA and/or kV adjustment per patient size (includes targeted exams where dose is matched to clinical indication); or iterative reconstruction. Contrast material: OMNI 350; Contrast volume: 100 ml; Contrast route: INTRAVENOUS (IV); COMPARISON: 1. XR CHEST 03/25/2022 5:16 AM 2. XR CHEST 10/27/2021 4:03 PM RADIATION DOSE METRICS: Total DLP (mGy-cm): 297.18 FINDINGS: Pulmonary arteries: There is a tiny eccentric intraluminal filling defect in a right lower lobe pulmonary artery branch. The filling defect appears to be adherent to the lateral wall of the vessel. Favor subacute to chronic pulmonary embolism. Aorta: No thoracic aortic aneurysm or dissection. Lungs: There is a 1.6 cm noncalcified, irregular/spiculated mass in the posterior right upper lobe (7:148). There is a 2.2 cm necrotic mass adjacent to the right minor fissure (8:18). There is a patchy increase in the interstitial markings in the right lung, potentially due to lymphangitic spread of malignancy. There is inferior left basilar consolidation/atelectasis. Pleural spaces: Small left pleural effusion with a subpulmonic component. There is fluid in the right minor fissure. No pneumothorax. Heart: The heart is not enlarged. There is a mild pericardial effusion. Heart RV/LV ratio: The RV/LV ratio is approximately 1.05. Coronary arteries: Calcified coronary artery atherosclerotic plaque visualized. Lymph nodes: There is right hilar and mediastinal lymphadenopathy. Bones/joints: Slight curvature of the thoracic spine convex to the right associated with multilevel disc degeneration. Prior anterior cervical fusion. Soft tissues: No acute soft tissue abnormality. CT/CT angio chest PE protcl [id number] IMPRESSION: 1. 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 2. Tiny subacute to chronic pulmonary embolus in the right lower lobe.
--- NOTE | 2022-03-25 07:13 | ECG_ITS ---
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 Measurements Intervals [place] Rate: 93 P: 70 MT: 135 QRS: 59 QRSD: 76 T: 67 QT: 356 QTc: 445 Interpretive Statements SINUS RHYTHM Compared to ECG 03/25/2022 05:33:16 No significant changes Electronically Signed On 03-25-2022 14:48:28 DUMP MOTORMAN by Tenzin Weiss M.D. [id number]
[2022-03-25 08:22] LABS: Troponin 5 2HR 9.56 ng/L (0-10)
[2022-03-25] MEDS: enoxaparin 60 mg/0.6 mL Syringe 65 MG SUBCUT (09:11)
[2022-03-25 09:13] LABS: Troponin 5 2HR Delta -2.44 ABS# (0-10)
--- NOTE | 2022-03-25 10:11 | PM.HP ---
Providers/Chief Complaint Admitting Physician: Jefry Gutiérrez MD, hospitalist Primary Care Provider: Gunnar Corey MD Chief Complaint: CP History of Present Illness Sabrina Mendenhall is a 61 year old female who presents to the hospital with shortness of breath, and chest discomfort on the left side, underneath her left breast and around her left ear. She reports the chest discomfort was very sharp in nature, and it is gone since receiving medicine in the ER. She reports she gets a little bit more short of breath with laying down. She wheezes on occasion. She has been smoking most of her life. She is under stress lately caring for her with lung cancer at home. She had COVID, in October and has had a persistent cough since that time. No hemoptysis, or fever. She has not required oxygen. She is on treatment for rheumatoid arthritis and is on daily steroids. Review of Systems General: Reports: 10 or more systems reviewed and unremarkable except in HPI and below Const: Denies: fever(s) or chills Eyes: Denies: change in vision ENMT: Denies: throat pain Card: Reports: chest pain Resp: Reports: dyspnea GI: Denies: abdominal pain, hematochezia or melena : Denies: flank pain Musc: Denies: neck pain Skin/Breast: Denies: rash Neuro: Denies: headache(s) Psych: Denies: anxiety or depression Endo: Denies: polyuria Colt/Lymph: Denies: easy bruising All/Imm: Denies: urticaria Medications/Allergies Home Medications Medication Instructions Recorded Confirmed Last Taken Type albuterol sulfate 90 mcg/actuation 1 inh inhalation QID PRN shortness 09/30/21 03/25/22 Unknown Rx aerosol inhaler of breath or wheezing #8.5 grams gabapentin 400 mg capsule 400 mg PO TID 10/06/21 03/25/22 03/23/22 History amlodipine 10 mg tablet 5 mg PO DAILY 10/27/21 03/25/22 03/23/22 History potassium chloride 10 mEq 10 meq PO DAILY #30 tabs 10/27/21 03/25/22 Unknown Rx tablet,extended release (Klor-Con) furosemide 20 mg tablet See Rx Instructions .Route 12/14/21 03/25/22 Unknown Rx .COMPLEX #30 tabs prednisone 5 mg tablet 5 mg PO DAILY #90 tabs 02/08/22 03/25/22 03/23/22 Rx tofacitinib 5 mg tablet (Xeljanz) 5 mg PO BID #60 tabs 02/08/22 03/25/22 03/23/22 Rx cyanocobalamin (vitamin B-12) 100 100 mcg PO DAILY 03/25/22 03/25/22 03/23/22 History mcg tablet (Vitamin B-12) lisinopril 10 1 tab PO DAILY 03/25/22 03/25/22 03/23/22 History mg-hydrochlorothiazide 12.5 mg tablet omeprazole 40 mg capsule,delayed 40 mg PO DAILY 03/25/22 03/25/22 03/23/22 History release Allergies Allergy/AdvReac Type Severity Reaction Status Date / Time No Known Allergies Allergy Verified 03/25/22 08:07 PFSH Acute PFSH: Medical History (Updated 03/25/22 @ 10:20 by Jefry Gutiérrez MD) Benign essential HTN Diagnosed in 2018 and is well controlled by medications managed by her primary care provider. 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 S/P right rotator cuff repair Performed in June of 2012 S/P tubal ligation Performed in the early Status post bilateral knee replacements Performed in 2018 Family History Father Hyperlipidemia Hypertension Grandmother Stroke paternal Heart disease paternal Mother Heart disease Denies family history of Colon cancer Ovarian cancer Diabetes DVT (deep venous thrombosis) Breast cancer Anesthesia complication Bleeding disorder Pulmonary embolism Uterine cancer Thyroid condition Social History Smoking and tobacco status: current every day smoker cigarettes [ Other cigarette details: started at age 16] Alcohol intake: current Alcohol intake frequency: holidays/special occasions only Current occupational status: employed Current occupation: [employer] History of recent travel: No Additional social history: has a suppressed immune system Vitals/I&O/Wt Last Vital Signs Pulse 93 03/25/22 09:59 Resp 23 H 03/25/22 09:59 BP 114/79 03/25/22 09:59 Pulse Ox 95 03/25/22 09:59 O2 Del Method 03/25/22 09:59 O2 Flow Rate 3 03/25/22 09:59 03/24/22 03/25/22 03/25/22 22:59 06:59 14:59 Intake Total 50 / 50 250 / 250 Balance 50 / 50 250 / 250 Weight last 48 hrs Weight 63.503 kg Physical Exam Narrative: General exam is a white female, no distress, on 4 L of oxygen HEENT: Atraumatic and normocephalic. Pupils equally round. Oropharynx is clear. Neck is supple no lymphadenopathy or thyromegaly Cardiovascular regular rate and rhythm without murmur Lungs diminished breath sounds bilaterally. Few dry crackles bilaterally. Abdomen is soft with positive bowel sounds. No obvious organomegaly exam is deferred Extremities no cyanosis clubbing or edema, cap refill brisk Skin no rash Neuro no obvious focal deficits. Data 03/25/22 05:35 03/25/22 05:35 Other Labs: Dimer elevated at 3.83 LFTs normal Troponin 12 with repeat of 10 Influenza antigen, rapid COVID all negative CTA of chest demonstrates findings compatible with malignancy right lung with mediastinal spread and a teeny subacute to chronic pulmonary embolism right lower lobe Echo in February 2022 demonstrated a normal EF, pulmonary artery pressure of 32 EKG demonstrates normal sinus rhythm, normal axis, essentially normal EKG Micro: Microbiology 03/25/22 05:47 Blood Culture - Preliminary Blood SPECIMEN COLLECTED 03/25/22 05:46 Blood Culture - Preliminary Blood SPECIMEN COLLECTED A&P Assessment and plan (1) Pulmonary embolism: Patient with small pulmonary embolism on CTA Initiate Lovenox 1 mg/kg every 12 hours Transition to oral agent when appropriate (2) Pneumonia: Rocephin and azithromycin started in the emergency department. Continue. Sputum culture (3) Acute respiratory failure with hypoxia: Oxygen as needed, wean as tolerated (4) Mass of right lung: New diagnosis of mass of right lung. I will try to touch base with pulmonary as bronchoscopy may be the best way to approach this. He could potentially be done outpatient (5) Seropositive rheumatoid arthritis of multiple sites: Continue chronic steroids Hold tafacitamab in face of pneumonia Plan Other medical problems as outlined in past medical history Full code Lovenox will suffice for DVT prophylaxis Attestations Medical Necessity Statement*: Will need greater than 2 midnight stay for evaluation and treatment of pulmonary embolism, hypoxia, pneumonia Coding Level of Care Code Acute Code for [facility] Fwd Diagnoses Pulmonary embolism I26.99 Pneumonia J18.9 Acute respiratory failure with hypoxia J96.01 Mass of right lung R91.8 Seropositive rheumatoid arthritis of multiple sites M05.79
[2022-03-25 10:43] LABS: NT Pro B Type Natriuretic Pept 31 pg/mL (0-125)
--- NOTE | 2022-03-25 11:13 | ECG_ITS ---
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 Measurements Intervals [place] Rate: 84 P: 54 OR: 138 QRS: 6 QRSD: 89 T: 26 QT: 373 QTc: 441 Interpretive Statements SINUS RHYTHM Compared to ECG 03/25/2022 07:26:23 No significant changes Electronically Signed On 03-25-2022 14:46:58 ENVELOPE STAMPING MACHINE OPERATOR by Tenzin Weiss M.D. [email or web address] [id number]
[2022-03-25] MEDS: ipratropium-albuterol 3 mL Neb INHALATION ×2 (11:38→21:26)
[2022-03-25 12:26] LABS: Troponin 5 6HR 8.58 ng/L (0-10)
[2022-03-25 12:36] LABS: Troponin 5 6HR Delta -3.42 ng/L (0-12)
[2022-03-25] MEDS: gabapentin 400 mg Capsule PO ×2 (14:48→20:37)
[2022-03-25] MEDS: acetaminophen 325 mg Tablet 650 MG PO (20:37)
[2022-03-25] MEDS: enoxaparin 60 mg/0.6 mL Syringe SUBCUT (20:37)
[2022-03-25] MEDS: budesonide 0.5 mg/2 mL Neb INHALATION (21:26)
[2022-03-26] VITALS (14 sets, daily range): BP systolic 94–119; BP diastolic 57–78; PULSE 64–90; RESP 15–18; TEMP 36.2–36.7; O2SAT 88–100
[2022-03-26] MEDS: cefTRIAXone 1,000 MG in sodium chloride 0.9% (plus) 50 ML 100 MG IV (05:03)
[2022-03-26] MEDS: azithromycin 500 MG in sodium chloride 0.9% 250 ML 250 MG IV (05:38)
[2022-03-26 05:59] LABS: Basophils % 0.1 %; Eosinophils % 0.2 %; Hematocrit 40.6 % (37.0-47.0); Hemoglobin 13.4 g/dL (11.5-15.3); Lymphocytes # 0.3 10^3/uL (0.8-4.8); Lymphocytes % 1.5 %; Mean Corpuscular Hemoglobin 30.9 pg (28.0-34.0); Mean Corpuscular Volume 93.8 fl (81-99); Mean Platelet Volume 9.8 fL (7.4-10.4); Monocytes # 1.5 10^3/uL (0.2-0.9); Monocytes % 6.8 %; Neutrophils # 20.09 10^3/uL (1.8-7.7); Neutrophils % 90.7 %; Nucleated Red Blood Cells % 0 %; Platelet Count 375 10^3/cmm (130-400); Red Blood Count 4.33 10^6/uL (4.1-5.3); Red Cell Distribution Width 13.9 % (12.1-15.1); White Blood Count 22.2 10^3/uL (4.0-10.0)
[2022-03-26 06:25] LABS: Anion Gap 17.2 (5-19); Blood Urea Nitrogen 26 mg/dL (8-23); Calcium 9.2 mg/dL (8.5-10.5); Carbon Dioxide 24 mmol/L (22-29); Chloride 99 mmol/L (98-107); Glomerular Filtration Rate 84.8 mL/min (90-130); Glucose 121 mg/dL (65-115); Osmolality Calculated 288 mOsm/kg (285-295); Potassium 4.2 mmol/L (3.5-5.1); Sodium 136 mmol/L (136-145)
[2022-03-26] MEDS: ipratropium-albuterol 3 mL Neb INHALATION ×3 (08:26→20:22)
[2022-03-26] MEDS: budesonide 0.5 mg/2 mL Neb INHALATION ×2 (08:30→20:22)
--- NOTE | 2022-03-26 08:30 | PM.PN ---
Subjective Subjective: Sabrina reports she is doing a little bit better. She still has some sharp chest discomfort on the left, especially when she breathes in deep. We discussed it is still possible she could have had small pulmonary emboli to the left side as well as in the right, or this could be musculoskeletal pain. She is now down to 1-1/2 L of oxygen. Medications: Reviewed: Yes Vitals/I&O/Wt Last Vital Signs Temp 97.8 F 03/26/22 04:00 Pulse 69 03/26/22 06:00 Resp 18 03/26/22 06:00 BP 114/68 03/26/22 04:00 Pulse Ox 88 L 03/26/22 06:00 O2 Del Method 03/26/22 06:00 O2 Flow Rate 2 03/26/22 06:00 03/25/22 03/26/22 03/26/22 22:59 06:59 14:59 Intake Total 440 / 810 540 / 1350 Balance 440 / 810 540 / 1350 Weight last 48 hrs Weight 63.503 kg Weight 63.503 kg Physical Exam Narrative: General exam is a white female, no distress, on 1-1/2 L of oxygen Neck is supple no lymphadenopathy or thyromegaly Cardiovascular regular rate and rhythm without murmur Lungs diminished breath sounds bilaterally. A faint expiratory wheezes heard on the left Abdomen is soft with positive bowel sounds. No obvious organomegaly Extremities no cyanosis clubbing or edema, cap refill brisk Skin no rash Data 03/26/22 05:33 03/26/22 05:33 Micro: Microbiology 03/25/22 05:47 Blood Culture - Preliminary Blood NEGATIVE TO DATE 03/25/22 05:46 Blood Culture - Preliminary Blood NEGATIVE TO DATE A&P Assessment and plan (1) Pulmonary embolism: Patient with small pulmonary embolism on CTA Continue Lovenox 1 mg/kg every 12 hours Transition to IV heparin, Tuesday with plans for bronchoscopy on Tuesday (2) Pneumonia: Continue azithromycin Await sputum culture MRSA PCR Change Rocephin to Zosyn. White blood cell count has increased significantly, although this could also be secondary to a dose of IV steroids she received in the ER (3) Acute respiratory failure with hypoxia: Wean oxygen as tolerated (4) Mass of right lung: New diagnosis of mass of right lung. Pulmonary consult today Likely bronchoscopy on [place] (5) Seropositive rheumatoid arthritis of multiple sites: Continue chronic steroids, 5 mg daily Hold tafacitamab in face of pneumonia Plan Other medical problems as outlined in past medical history Full code Lovenox will suffice for DVT prophylaxis Attestations Medical Necessity Statement*: Needs continued hospitalization for IV antibiotics secondary to pneumonia, Lovenox for PE, and further evaluation of lung mass Coding Level of Care Code Acute Code for [facility] Fwd Diagnoses Pulmonary embolism I26.99 Pneumonia J18.9 Acute respiratory failure with hypoxia J96.01 Mass of right lung R91.8 Seropositive rheumatoid arthritis of multiple sites M05.79
[2022-03-26] MEDS: gabapentin 400 mg Capsule PO ×3 (09:21→20:40)
[2022-03-26] MEDS: pantoprazole DR 40 mg Tablet PO (09:21)
[2022-03-26] MEDS: enoxaparin 60 mg/0.6 mL Syringe SUBCUT ×2 (09:21→20:39)
[2022-03-26] MEDS: predniSONE 5 mg Tablet PO (09:21)
[2022-03-26] MEDS: piperacillin-tazobactam 3.375 GM in sodium chloride 0.9% (plus) 50 ML IV ×2 (09:22→16:59)
[2022-03-26] MEDS: potassium chloride ER 10 mEq Tablet PO (09:22)
[2022-03-26] MEDS: acetaminophen 325 mg Tablet 650 MG PO (11:22)
--- NOTE | 2022-03-26 11:41 | PC.CHAP ---
Pastoral Care Encounter/Spiritual Assessment Type of Contact [] Declined second miller visit [] Patient/Family/Request visit [] Outpatient visit [] Follow-up visit [] Physician referral [] Code/Alert []x Routine visit [] Staff referral [] Actively dying [] Patient sleeping [] Family support [] [] Out of room [] Palliative care [] [] Receiving care in room [] Pre-surgical visit [] Trauma [] Long length of stay [] ICU visit [] Other: Relational/Emotional Strength x] Patient feels connected with others/family/visitors/staff [] Distress [] Loneliness/isolation [] Abandonment Spirituality of Patient []x Person of Nadine [] Attends Tenriism of their Nadine []x Believes in Prayer [] Reads Bible or Evangelical materials [] There are Spiritual issues to be addressed Catheter Finisher And Inspector Interventions x[] Prayer [x] Active listening [x Non-anxious presence [] Spiritual/emotional support [] Crisis/trauma care [] Spiritual counseling [] Bereavement support [] Provided bereavement packet [] Provided Bible/devotional materials [] Provided toy/stuffed animal, coloring book to patient or family member [] Provided Communion [] Anointing/[place] [] Salvation [x] Completed spiritual assessment [] Other: Impact on Illness or Injury [] Angry [] Fearful [] Anxious [] Often cries [] Exhaustion [] Unable to work [] Unable to attend pentecostal [] Unable to walk/stand [] Unable to read [] Unable to drive [] Unable to eat/drink [] Unable to sleep [] Unable to be with family [] Patient intubated [] Other: Summary Time spent with patient 10 min
--- NOTE | 2022-03-26 20:00 | PC.NURSE ---
Addendum entered by Jackie Peters RN 03/26/22 20:02: PRN Morphine ordered. Original Note: Patient states the pain in her left chest is the same as when she came in and the Tylenol isn't helping. Dr. Hale notified.
[2022-03-26] MEDS: morphine 4 mg/mL SDV 1 mL 1 MG IVP (20:39)
--- NOTE | 2022-03-26 22:56 | P.CONIM_ITS ---
Providers/Reason For Consult Consulting Physician/Specialty*: Mayco Swenson MD / Pulmonary Critical Care Reason for Consult*: CT chest suspicious for advance lung cancer Requesting Physician: Jefry Gutiérrez MD Attending Physician: Jefry Gutiérrez MD Primary Care Provider: Gunnar Corey MD History of Present Illness History of Present Illness Sabrina Mendenhall is a 61 year old female with PMH GERD, HTN, Osteoporosis, seropositive RA, COPD presented to the hospital on 03/25/22 with shortness of breath, and chest discomfort on the left side, underneath her left breast and around her left ear.? Reported orthopnea and occasional wheezing; CTA chest showed tiny filling defect in a right lower lobe pulmonary artery branch, possible subacute to chronic pulmonary embolism. There is a 1.6 cm noncalcified, irregular/spiculated mass in the posterior right upper lobe. There is a 2.2 cm necrotic mass adjacent to the right minor fissure. There is a patchy increase in the interstitial markings in the right lung, potentially due to lymphangitic spread of malignancy. Small left pleural effusion with a subpulmonic component. There is fluid in the right minor fissure. There is a mild pericardial effusion. Calcified coronary artery atherosclerotic plaque visualized. There is right hilar and mediastinal lymphadenopathy. With CT scan showing concerning features for malignancy-pulmonary consulted for bronchoscopic evaluation. Seen patient at bedside-she is currently on 4 L of nasal cannula. Reported she never needed supplemental oxygen at home.She has extensive smoking history. Her She is under stress lately caring for her with lung cancer at home.? She had COVID, in October and has had a persistent cough since that time.? Denied any hemoptysis, fever..? She has not required oxygen. She has history of rheumatoid arthritis and takes prednisone 5 Mg p.o. daily. Review of Systems General: Reports: 10 or more systems reviewed and unremarkable except in HPI and below Medications/Allergies Home Medications Medication Instructions Recorded Confirmed Last Taken Type albuterol sulfate 90 mcg/actuation 1 inh inhalation QID PRN shortness 09/30/21 03/25/22 Unknown Rx aerosol inhaler of breath or wheezing #8.5 grams gabapentin 400 mg capsule 400 mg PO TID 10/06/21 03/25/22 03/23/22 History amlodipine 10 mg tablet 5 mg PO DAILY 10/27/21 03/25/22 03/23/22 History potassium chloride 10 mEq 10 meq PO DAILY #30 tabs 10/27/21 03/25/22 Unknown Rx tablet,extended release (Klor-Con) furosemide 20 mg tablet See Rx Instructions .Route 12/14/21 03/25/22 Unknown Rx .COMPLEX #30 tabs prednisone 5 mg tablet 5 mg PO DAILY #90 tabs 02/08/22 03/25/22 03/23/22 Rx tofacitinib 5 mg tablet (Xeljanz) 5 mg PO BID #60 tabs 02/08/22 03/25/22 03/23/22 Rx cyanocobalamin (vitamin B-12) 100 100 mcg PO DAILY 03/25/22 03/25/22 03/23/22 History mcg tablet (Vitamin B-12) lisinopril 10 1 tab PO DAILY 03/25/22 03/25/22 03/23/22 History mg-hydrochlorothiazide 12.5 mg tablet omeprazole 40 mg capsule,delayed 40 mg PO DAILY 03/25/22 03/25/22 03/23/22 History release Allergies Allergy/AdvReac Type Severity Reaction Status Date / Time No Known Allergies Allergy Verified 03/25/22 08:07 Current Medications Generic Name Dose Route Start Last Admin Trade Name Freq PRN Reason Stop Dose Admin Acetaminophen 650 mg 03/25/22 11:14 03/26/22 11:22 Acetaminophen 325 Mg Tablet PO 650 mg Q6H PRN Administration Mild/Mod Pain Or Temp >/= 101 Albuterol/Ipratropium 3 ml 03/25/22 20:00 03/26/22 20:22 Ipratropium-Albuterol 3 Ml Neb INHALATION 3 ml Q6H.RESP EBONY Administration Amlodipine Besylate 5 mg 03/26/22 09:00 03/26/22 12:56 Amlodipine 5 Mg Tablet PO Not Given DAILY EBONY Budesonide 0.5 mg 03/25/22 20:00 03/26/22 20:22 Budesonide 0.5 Mg/2 Ml Neb INHALATION 0.5 mg BID.RESPIRATORY EBONY Administration Enoxaparin Sodium 60 mg 03/25/22 21:00 03/26/22 20:39 Enoxaparin 60 Mg/0.6 Ml Syringe SUBCUT 60 mg Q12H EBONY Administration Gabapentin 400 mg 03/25/22 15:00 03/26/22 20:40 Gabapentin 400 Mg Capsule PO 400 mg TID EBONY Administration Azithromycin 500 mg/ Sodium 250 mls @ 250 mls/hr 03/26/22 06:00 03/26/22 06:44 Chloride IV Infused Q24H EBONY Infusion Protocol Piperacillin Sod/Tazobactam 50 mls @ 12.5 mls/hr 03/26/22 09:00 03/26/22 20:43 Sod 3.375 gm/ Sodium Chloride IV Infused Q8H EBONY Infusion Lisinopril 10 mg 03/26/22 09:00 03/26/22 12:56 Lisinopril 10 Mg Tablet PO Not Given DAILY EBONY Morphine Sulfate 1 mg 03/26/22 20:01 03/26/22 20:39 Morphine 4 Mg/Ml Sdv 1 Ml IVP 1 mg Q4H PRN Administration SEVERE PAIN Pantoprazole Sodium 40 mg 03/26/22 09:00 03/26/22 09:[address] 40 Mg Tablet PO 40 mg DAILY EBONY Administration Potassium Chloride 10 meq 03/26/22 09:00 03/26/22 09:22 Potassium Chloride Er 10 Meq Tablet PO 10 meq DAILY EBONY Administration Prednisone 5 mg 03/26/22 09:00 03/26/22 09:21 Prednisone 5 Mg Tablet PO 5 mg DAILY EBONY Administration PFSH Acute PFSH: Medical History Benign essential HTN Diagnosed in 2018 and is well controlled by medications managed by her primary care provider. 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 S/P right rotator cuff repair Performed in June of 2012 S/P tubal ligation Performed in the early Status post bilateral knee replacements Performed in 2018 Family History Father Hyperlipidemia Hypertension Grandmother Stroke paternal Heart disease paternal Mother Heart disease Denies family history of Colon cancer Ovarian cancer Diabetes DVT (deep venous thrombosis) Breast cancer Anesthesia complication Bleeding disorder Pulmonary embolism Uterine cancer Thyroid condition Social History Smoking and tobacco status: current every day smoker cigarettes [ Other cigarette details: started at age 16] Alcohol intake: current Alcohol intake frequency: holidays/special occasions only Current occupational status: employed Current occupation: [employer] History of recent travel: No Additional social history: has a suppressed immune system Vitals/I&O/Wt Last Vital Signs Temp 97.5 F L 03/26/22 20:00 Pulse 88 03/26/22 20:24 Resp 18 03/26/22 20:39 BP 99/59 03/26/22 20:00 Pulse Ox 93 03/26/22 20:24 O2 Del Method 03/26/22 20:24 O2 Flow Rate 3 03/26/22 20:24 03/26/22 03/26/22 03/26/22 06:59 14:59 22:59 Intake Total 540 / 1350 650 / 650 410 / 1060 Balance 540 / 1350 650 / 650 410 / 1060 Weight last 48 hrs Weight 140 lb Weight 140 lb Physical Exam Narrative: General: alert, NAD HEENT: conj clear, EOMI, PERRL, mmm, Neck: supple, no meningismus Heme: no cervical LAP Respiratory: Inspection: No visible deformity of the chest wall Palpation: Trachea is mildly deviated to the right, bilateral symmetric expansion Percussion: Bilateral tympanic percussion note both anterior and posteriorly Auscultation: Mild expiratory wheeze bilaterally Cardiovascular: rrr, nl s1s2, no mrg Abdomen: soft, nt, nd, no r/g, bs+ Extremities: pulses +, no edema, no c/c : no CVA tenderness Skin: intact, no rash MSK: no back or neck pain Neurologic: grossly intact Data 03/26/22 05:33 03/26/22 05:33 Other Labs: Radiology Impressions Chest X-Ray 03/25/22 05:13 IMPRESSION: 1. Increasing areas of iuxr-[id number]-skfs-right bibasilar atelectasis or airspace disease and small effusions. 2. Increasing right midlung atelectasis, scarring, or pneumonitis. 3. COPD and other chronic findings again noted. Chest CTA 03/25/22 06:42 IMPRESSION: 1. 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 2. Tiny subacute to chronic pulmonary embolus in the right lower lobe. ADDENDUM: 03/25/22 0821 THIS REPORT CONTAINS FINDINGS THAT MAY BE CRITICAL TO PATIENT CARE. The exam findings were verbally communicated by me via telephone conference to MOSHE BEASLEY at 8:12 AM BOAT MECHANIC on 03/25/2022. The findings were acknowledged and understood. Laboratory Results WBC 22.2 10^3/uL (4.0-10.0) H 03/26/22 05:33 RBC 4.33 10^6/uL (4.1-5.3) 03/26/22 05:33 Hgb 13.4 g/dL (11.5-15.3) 03/26/22 05:33 Hct 40.6 % (37.0-47.0) 03/26/22 05:33 MCV 93.8 fl (81-99) 03/26/22 05:33 MCH 30.9 pg (28.0-34.0) 03/26/22 05:33 MCHC 33.0 g/dL (30.0-36.0) 03/26/22 05:33 RDW 13.9 % (12.1-15.1) 03/26/22 05:33 Plt Count 375 10^3/cmm (130-400) 03/26/22 05:33 MPV 9.8 fL (7.4-10.4) 03/26/22 05:33 Neut % (Auto) 90.7 % 03/26/22 05:33 Lymph % (Auto) 1.5 % 03/26/22 05:33 Trego % (Auto) 6.8 % 03/26/22 05:33 Eos % (Auto) 0.2 % 03/26/22 05:33 Baso % (Auto) 0.1 % 03/26/22 05:33 Neut # (Auto) 20.09 10^3/uL (1.8-7.7) H 03/26/22 05:33 Lymph # (Auto) 0.3 10^3/uL (0.8-4.8) L 03/26/22 05:33 Trego # (Auto) 1.5 10^3/uL (0.2-0.9) H 03/26/22 05:33 Eos # (Auto) 0.0 10^3/uL (0.0-0.8) 03/26/22 05:33 Baso # (Auto) 0.0 10^3/uL (0.0-0.1) 03/26/22 05:33 Nucleated RBC % (auto) 0 % 03/26/22 05:33 Nucleated RBCs # 0.0 /100WBC 03/26/22 05:33 D-Dimer 3.83 ug/mIFEU (0-0.59) H 03/25/22 05:35 Sodium 136 mmol/L (136-145) 03/26/22 05:33 Potassium 4.2 mmol/L (3.5-5.1) 03/26/22 05:33 Chloride 99 mmol/L (98-107) 03/26/22 05:33 Carbon Dioxide 24 mmol/L (22-29) 03/26/22 05:33 Anion Gap 17.2 (5-19) 03/26/22 05:33 BUN 26 mg/dL (8-23) H 03/26/22 05:33 Creatinine 0.7 mg/dL (0.5-0.9) 03/26/22 05:33 GFR Calculation 84.8 mL/min (90-130) L 03/26/22 05:33 Glucose 121 mg/dL (65-115) H 03/26/22 05:33 Calculated Osmolality 288 mOsm/kg (285-295) 03/26/22 05:33 Calcium 9.2 mg/dL (8.5-10.5) 03/26/22 05:33 Total Bilirubin 0.5 mg/dL (0.15-1.2) 03/25/22 05:35 AST 10 U/L (0-32) 03/25/22 05:35 ALT 9 U/L (0-33) 03/25/22 05:35 Alkaline Phosphatase 90 U/L (35-105) 03/25/22 05:35 Troponin T Baseline 12 ng/L (0-10) H 03/25/22 05:35 Troponin T 120 Minute 9.56 ng/L (0-10) 03/25/22 07:50 Delta Troponin T -2.44 ABS# (0-10) L 03/25/22 07:50 Troponin T Hi Sens 6Hr 8.58 ng/L (0-10) 03/25/22 11:57 Troponin T Hi Sens 6Hr Delta -3.42 ng/L (0-12) L 03/25/22 11:57 NT-Pro-B Natriuret Pep 31 pg/mL (0-125) 03/25/22 05:35 Total Protein 7.4 g/dL (6.6-8.7) 03/25/22 05:35 Albumin 4.1 g/dL (3.5-5.2) 03/25/22 05:35 Globulin 3.3 g/dL (1.3-4.6) 03/25/22 05:35 Influenza Type A Ag negative (Negative) 03/25/22 05:35 Influenza Type B Ag negative (Negative) 03/25/22 05:35 SARS-CoV-2 Ag (Rapid) negative (Negative) 03/25/22 05:35 Micro: Microbiology 03/25/22 05:47 Blood Culture - Preliminary Blood NEGATIVE TO DATE 03/25/22 05:46 Blood Culture - Preliminary Blood NEGATIVE TO DATE A&P Assessment and plan (1) Hilar adenopathy: CT evidence of hilar and mediastinal lymphadenopathy -We will schedule for endobronchial ultrasound-guided biopsies on 03/29/2021 -With CTA showing new PE-requiring 3 to 4 L of oxygen-we will treated as acute PE -Initially thought to discharge patient and do EBUS as outpatient-however she may to hold anticoagulation for 2 days and in the acute setting of PE-would prefer to continue anticoagulation as much as possible -I will recommend to transition Lovenox to heparin on 03/28/2022 and hold heparin 6 hours prior to EBUS 03/29/2022 morning -If she is clinically stable postprocedure-she can go home on oral anticoagulation (2) Mass of right lung: -Suspicious for malignancy given extensive smoking history -There is possible lymphangitic spread as well -We will schedule for bronchoscopic evaluation to obtain biopsies from hilar and mediastinal lymph node -Nature of the procedure, alternatives, complications everything explained in detail to the patient and she verbalized understanding and agreed to do the procedure (3) Pulmonary embolism: CTA showed tiny filling defect in right lower lobe suspicious for chronic PE- given 3 to 4 L oxygen requirement-we will continue to treated as acute PE -With underlying CT findings suspicious for lung malignancy-she may need long- term anticoagulation -Currently she is on Lovenox every 12 (4) Pneumonia: Currently on Rocephin and azithromycin-Rocephin changed to Zosyn to cover for anaerobes as well (5) Acute respiratory failure with hypoxia: Currently requiring 3 to 4 L nasal cannula. Patient reported she never required oxygen at home CTA showed tiny filling defect in right lower lobe suspicious for chronic PE- currently on anticoagulation Also findings consistent with left lower lobe consolidation and receiving ceftriaxone and azithromycin (6) Acute exacerbation of chronic obstructive pulmonary disease (COPD): -With history of chronic smoking-patient more than likely to have underlying COPD -Currently she has faint wheeze bilaterally -We will continue DuoNeb nebulizations and Pulmicort nebulization -We will continue to treat underlying pneumonia with antibiotics Plan Consult Attestations Medical Necessity Statement: PE on anticoagulation, 3 to 4 L supplemental oxygen, multifocal pneumonia-on antibiotics, CT chest findings suspicious for malignancy and pending scopic evaluation on 03/29/2022 Coding Level of Care Code New Pt Acute Code for Chg Fwd Patient Type New History Comprehensive Exam Comprehensive Medical Decision Making Moderate Complexity Diagnoses Hilar adenopathy R59.0 Mass of right lung R91.8 Pulmonary embolism I26.99 Pneumonia J18.9 Acute respiratory failure with hypoxia J96.01 Acute exacerbation of chronic obstructive pulmonary disease (COPD) J44.1 Time Spent (min) 45
[2022-03-27] VITALS (16 sets, daily range): BP systolic 95–115; BP diastolic 63–77; PULSE 68–94; RESP 16–21; TEMP 36.4–36.8; O2SAT 90–96
[2022-03-27] MEDS: piperacillin-tazobactam 3.375 GM in sodium chloride 0.9% (plus) 50 ML IV ×3 (01:52→18:02)
[2022-03-27] MEDS: morphine 4 mg/mL SDV 1 mL 1 MG IVP (02:06)
[2022-03-27] MEDS: ipratropium-albuterol 3 mL Neb INHALATION ×4 (02:54→21:36)
[2022-03-27 03:34] LABS: Basophils # 0.1 10^3/uL (0.0-0.1); Basophils % 0.3 %; Eosinophils # 0.3 10^3/uL (0.0-0.8); Hemoglobin 11.7 g/dL (11.5-15.3); Lymphocytes # 0.8 10^3/uL (0.8-4.8); Lymphocytes % 5.4 %; Mean Corpuscular HGB Conc 31.6 g/dL (30.0-36.0); Mean Corpuscular Hemoglobin 30.3 pg (28.0-34.0); Mean Corpuscular Volume 95.9 fl (81-99); Mean Platelet Volume 9.9 fL (7.4-10.4); Monocytes # 1.1 10^3/uL (0.2-0.9); Neutrophils # 13.13 10^3/uL (1.8-7.7); Neutrophils % 84.8 %; Nucleated Red Blood Cells % 0 %; Platelet Count 361 10^3/cmm (130-400); Red Blood Count 3.86 10^6/uL (4.1-5.3); Red Cell Distribution Width 14.4 % (12.1-15.1); White Blood Count 15.5 10^3/uL (4.0-10.0)
[2022-03-27 03:59] LABS: Anion Gap 13.5 (5-19); Blood Urea Nitrogen 25 mg/dL (8-23); Calcium 9.1 mg/dL (8.5-10.5); Carbon Dioxide 25 mmol/L (22-29); Chloride 104 mmol/L (98-107); Glomerular Filtration Rate 72.7 mL/min (90-130); Glucose 93 mg/dL (65-115); Osmolality Calculated 290 mOsm/kg (285-295); Potassium 4.5 mmol/L (3.5-5.1); Sodium 138 mmol/L (136-145)
[2022-03-27] MEDS: azithromycin 500 MG in sodium chloride 0.9% 250 ML 250 MG IV (06:23)
[2022-03-27] MEDS: pantoprazole DR 40 mg Tablet PO (08:45)
[2022-03-27] MEDS: predniSONE 5 mg Tablet PO (08:45)
[2022-03-27] MEDS: amlodipine 5 mg Tablet PO (08:45)
[2022-03-27] MEDS: gabapentin 400 mg Capsule PO ×3 (08:45→20:43)
[2022-03-27] MEDS: potassium chloride ER 10 mEq Tablet PO (08:45)
[2022-03-27] MEDS: lisinopril 10 mg Tablet PO (08:45)
[2022-03-27] MEDS: enoxaparin 60 mg/0.6 mL Syringe SUBCUT ×2 (08:46→20:43)
[2022-03-27] MEDS: budesonide 0.5 mg/2 mL Neb INHALATION ×2 (10:06→21:36)
--- NOTE | 2022-03-27 16:15 | PM.PN ---
Subjective Subjective: Patient was seen and examined this morning no acute events overnight afebrile, WBC count is trending down H&H is a stable on therapeutic anticoagulation. Medications: Reviewed: Yes Medication Review Details: Generic Name Dose Route Start Last Admin Trade Name Freq PRN Reason Stop Dose Admin Acetaminophen 650 mg 03/25/22 11:14 03/26/22 11:22 Acetaminophen 32 5 Mg Tablet PO 650 mg Q6H PRN Administration Mild/Mod Pain Or Temp >/= 101 Albuterol/Ipratrop ium 3 ml 03/25/22 20:00 03/27/22 15:41 Ipratropium-Albu terol 3 Ml Neb INHALATION 3 ml Q6H.RESP EBONY Administration Amlodipine Besylat e 5 mg 03/26/22 09:00 03/27/22 08:45 Amlodipine 5 Mg Tablet PO 5 mg DAILY EBONY Administration Budesonide 0.5 mg 03/25/22 20:00 03/27/22 10:06 Budesonide 0.5 M g/2 Ml Neb INHALATION 0.5 mg BID.RESPIRATORY S CH Administration Enoxaparin Sodium 60 mg 03/25/22 21:00 03/27/22 08:46 Enoxaparin 60 Mg /0.6 Ml Syringe SUBCUT 60 mg Q12H EBONY Administration Gabapentin 400 mg 03/25/22 15:00 03/27/22 15:05 Gabapentin 400 M g Capsule PO 400 mg TID EBONY Administration Azithromycin 500 m g/ Sodium 250 mls @ 250 mls /hr 03/26/22 06:00 03/27/22 08:52 Chloride IV Infused Q24H EBONY Infusion Protocol Piperacillin Sod/T azobactam 50 mls @ 12.5 mls /hr 03/26/22 09:00 03/27/22 13:22 Sod 3.375 gm/ So dium Chloride IV Infused Q8H EBONY Infusion Lisinopril 10 mg 03/26/22 09:00 03/27/22 08:45 Lisinopril 10 Mg Tablet PO 10 mg DAILY EBONY Administration Morphine Sulfate 1 mg 03/26/22 20:01 03/27/22 02:06 Morphine 4 Mg/Ml Sdv 1 Ml IVP 1 mg Q4H PRN Administration SEVERE PAIN Pantoprazole Sodiu m 40 mg 03/26/22 09:00 01/21/23 08:[address] 40 Mg Tablet PO 40 mg DAILY EBONY Administration Potassium Chloride 10 meq 03/26/22 09:00 03/27/22 08:45 Potassium Chlori de Er 10 Meq Table t PO 10 meq DAILY EBONY Administration Prednisone 5 mg 03/26/22 09:00 03/27/22 08:45 Prednisone 5 Mg Tablet PO 5 mg DAILY EBONY Administration Vitals/I&O/Wt Last Vital Signs Temp 97.6 F 03/27/22 12:00 Pulse 68 03/27/22 15:47 Resp 17 03/27/22 15:41 BP 97/63 03/27/22 12:00 Pulse Ox 96 03/27/22 15:41 O2 Del Method 03/27/22 15:41 O2 Flow Rate 2 03/27/22 15:41 03/27/22 03/27/22 03/27/22 06:59 14:59 22:59 Intake Total 250 / 1550 1020 / 1020 Output Total 0 / 0 Balance 250 / 1550 1020 / 1020 Weight last 48 hrs Weight 65.589 kg Physical Exam Const: COMMON NORMALS: patient oriented x3 HENMT: COMMON NORMALS: normocephalic and atraumatic HEAD & SCALP: normocephalic and atraumatic Resp: COMMON NORMALS: normal respiratory effort, No retractions, No use of accessory muscles and clear to auscultation bilaterally EFFORT & INSPECTION: Yes symmetric chest movement AUSCULTATION: clear to auscultation bilaterally Cardio: COMMON NORMALS: regular rate, regular rhythm, S1 normal heart sound present, S2 normal heart sound present, No gallops present (Cardio), No murmurs present (Cardio), No rub (Cardio) and Peripheral pulses 2+ throughout RATE: regular rate RHYTHM: regular rhythm HEART SOUNDS: S1 normal heart sound present and S2 normal heart sound present PERIPHERAL PULSES: Peripheral pulses 2+ throughout GI: COMMON NORMALS: Normal to inspection, nondistended, normoactive bowel sounds present, Soft to palpation, non-tender, No hepatosplenomegaly present and no masses AUSCULTATION: Yes normoactive bowel sounds PALPATION: Yes Soft to palpation and Yes No hepatosplenomegaly present RECTAL EXAM: deferred Extremity: COMMON NORMALS: no clubbing, cyanosis or edema and no pedal edema Neuro: COMMON NORMALS: patient oriented x3 Data 03/27/22 02:59 03/27/22 02:59 Micro: Microbiology 03/26/22 09:29 MRSA Culture - Final Nose A&P Assessment and plan (1) Pulmonary embolism: Patient with small pulmonary embolism on CTA Continue Lovenox 1 mg/kg every 12 hours Transition to IV heparin, Tuesday with plans for bronchoscopy on Tuesday (2) Pneumonia: Continue azithromycin Await sputum culture MRSA PCR Change Rocephin to Zosyn. White blood cell count has increased significantly, although this could also be secondary to a dose of IV steroids she received in the ER (3) Acute respiratory failure with hypoxia: Wean oxygen as tolerated (4) Mass of right lung: New diagnosis of mass of right lung. Pulmonary consult today Likely bronchoscopy on Tuesday (5) Seropositive rheumatoid arthritis of multiple sites: Continue chronic steroids, 5 mg daily Hold tafacitamab in face of pneumonia Plan Other medical problems as outlined in past medical history Full code Lovenox will suffice for DVT prophylaxis Attestations Medical Necessity Statement*: In Hospital for management of PE and pneumonia Coding Level of Care Code Acute Code for Chg Fwd Exam Detailed Diagnoses Pulmonary embolism I26.99 Pneumonia J18.9 Acute respiratory failure with hypoxia J96.01 Mass of right lung R91.8 Seropositive rheumatoid arthritis of multiple sites M05.79
[2022-03-28] VITALS (13 sets, daily range): BP systolic 94–123; BP diastolic 62–70; PULSE 65–86; RESP 16–18; TEMP 36.4–37.1; O2SAT 90–94
[2022-03-28] MEDS: piperacillin-tazobactam 3.375 GM in sodium chloride 0.9% (plus) 50 ML IV ×3 (01:32→16:32)
[2022-03-28] MEDS: ipratropium-albuterol 3 mL Neb INHALATION ×4 (02:36→20:28)
[2022-03-28] MEDS: acetaminophen 325 mg Tablet 650 MG PO (03:23)
[2022-03-28] MEDS: azithromycin 500 MG in sodium chloride 0.9% 250 ML 250 MG IV (05:46)
[2022-03-28] MEDS: budesonide 0.5 mg/2 mL Neb INHALATION ×2 (08:41→20:29)
[2022-03-28] MEDS: lisinopril 10 mg Tablet PO (09:26)
[2022-03-28] MEDS: amlodipine 5 mg Tablet PO (09:26)
[2022-03-28] MEDS: potassium chloride ER 10 mEq Tablet PO (09:26)
[2022-03-28] MEDS: predniSONE 5 mg Tablet PO (09:26)
[2022-03-28] MEDS: pantoprazole DR 40 mg Tablet PO (09:27)
[2022-03-28] MEDS: gabapentin 400 mg Capsule PO ×3 (09:27→20:53)
[2022-03-28] MEDS: heparin drip 25,000 UNIT/500 ML PREMIX 18 UNIT IV (10:37)
[2022-03-28 10:58] LABS: Partial Thromboplastin Time 29.2 SECONDS (23.9-36.7)
--- NOTE | 2022-03-28 14:51 | P.PN_ITS ---
Subjective Subjective: Patient was seen and examined this morning no acute events overnight afebrile.Denies any significant shortness of breath. Medications: Reviewed: Yes Medication Review Details: Generic Name Dose Route Start Last Admin Trade Name Freq PRN Reason Stop Dose Admin Acetaminophen 650 mg 03/25/22 11:14 03/28/22 03:23 Acetaminophen 32 5 Mg Tablet PO 650 mg Q6H PRN Administration Mild/Mod Pain Or Temp >/= 101 Albuterol/Ipratrop ium 3 ml 03/25/22 20:00 03/28/22 14:46 Ipratropium-Albu terol 3 Ml Neb INHALATION 3 ml Q6H.RESP EBONY Administration Amlodipine Besylat e 5 mg 03/26/22 09:00 03/28/22 09:26 Amlodipine 5 Mg Tablet PO 5 mg DAILY EBONY Administration Budesonide 0.5 mg 03/25/22 20:00 03/28/22 08:41 Budesonide 0.5 M g/2 Ml Neb INHALATION 0.5 mg BID.RESPIRATORY S CH Administration Gabapentin 400 mg 03/25/22 15:00 03/28/22 09:27 Gabapentin 400 M g Capsule PO 400 mg TID EBONY Administration Azithromycin 500 m g/ Sodium 250 mls @ 250 mls /hr 03/26/22 06:00 03/28/22 07:36 Chloride IV Infused Q24H EBONY Infusion Protocol Piperacillin Sod/T azobactam 50 mls @ 12.5 mls /hr 03/26/22 09:00 03/28/22 13:56 Sod 3.375 gm/ So dium Chloride IV Infused Q8H EBONY Infusion Heparin Sodium/Sod ium Chloride 25,000 unit in 50 0 mls @ 0 mls/hr 03/28/22 08:30 03/28/22 10:37 Heparin Drip IV 13.72 unit/kg/hr .Q0M EBONY 18 mls/hr Administration Protocol Per Protocol Lisinopril 10 mg 03/26/22 09:00 03/28/22 09:26 Lisinopril 10 Mg Tablet PO 10 mg DAILY EBONY Administration Morphine Sulfate 1 mg 03/26/22 20:01 03/27/22 02:06 Morphine 4 Mg/Ml Sdv 1 Ml IVP 1 mg Q4H PRN Administration SEVERE PAIN Pantoprazole Sodiu m 40 mg 03/26/22 09:00 03/28/22 09:[address] 40 Mg Tablet PO 40 mg DAILY EBONY Administration Potassium Chloride 10 meq 03/26/22 09:00 03/28/22 09:26 Potassium Chlori de Er 10 Meq Table t PO 10 meq DAILY EBONY Administration Prednisone 5 mg 03/26/22 09:00 03/28/22 09:26 Prednisone 5 Mg Tablet PO 5 mg DAILY EBONY Administration Vitals/I&O/Wt Last Vital Signs Temp 97.5 F L 03/28/22 12:00 Pulse 79 03/28/22 14:00 Resp 16 03/28/22 14:00 BP 123/68 03/28/22 12:00 Pulse Ox 92 03/28/22 14:00 O2 Del Method 03/28/22 14:00 O2 Flow Rate 2 03/28/22 14:00 03/27/22 03/28/22 03/28/22 22:59 06:59 14:59 Intake Total 530 / 1550 50 / 1600 900 / 900 Balance 530 / 1550 50 / 1600 900 / 900 Weight last 48 hrs Weight 65.589 kg Physical Exam Const: COMMON NORMALS: patient oriented x3 HENMT: COMMON NORMALS: normocephalic and atraumatic HEAD & SCALP: normocephalic and atraumatic Resp: COMMON NORMALS: clear to auscultation bilaterally EFFORT & INSPECTION: Yes symmetric chest movement AUSCULTATION: clear to auscultation bilaterally OTHER: Diminished air entry bilaterally Cardio: COMMON NORMALS: regular rate, regular rhythm, S1 normal heart sound present, S2 normal heart sound present, No gallops present (Cardio), No murmurs present (Cardio), No rub (Cardio) and Peripheral pulses 2+ throughout RATE: regular rate RHYTHM: regular rhythm HEART SOUNDS: S1 normal heart sound present and S2 normal heart sound present PERIPHERAL PULSES: Peripheral pulses 2+ throughout GI: COMMON NORMALS: Normal to inspection, nondistended, normoactive bowel sounds present, Soft to palpation, non-tender, No hepatosplenomegaly present and no masses AUSCULTATION: Yes normoactive bowel sounds PALPATION: Yes Soft to palpation and Yes No hepatosplenomegaly present RECTAL EXAM: deferred Extremity: COMMON NORMALS: no clubbing, cyanosis or edema and no pedal edema Neuro: COMMON NORMALS: patient oriented x3 Data 03/27/22 02:59 03/27/22 02:59 A&P Assessment and plan (1) Pulmonary embolism: Patient with small pulmonary embolism on CTA Initially she was on Lovenox, transition to therapeutic heparin, in preparation for bronchoscopy tomorrow morning. Heparin drip will be kept on hold from midnight. (2) Pneumonia: MRSA PCR negative Initially she was on ceftriaxone azithromycin, antibiotic coverage was broadened to Zosyn secondary to worsening white blood cell count, patient is on p.o. prednisone possibly white cell count can be elevated due to steroid use. (3) Acute respiratory failure with hypoxia: Wean oxygen as tolerated (4) Mass of right lung: Newly diagnosed right lung mass on CTA chest Pulmonary on board for possible bronchoscopy on Tuesday (5) Seropositive rheumatoid arthritis of multiple sites: Continue chronic steroids, 5 mg daily Hold tafacitamab in face of pneumonia Plan Other medical problems as outlined in past medical history Full code Lovenox will suffice for DVT prophylaxis Attestations Medical Necessity Statement*: Needs to be in hospital for management of PE. Coding Level of Care Code Acute Code for [facility] Diagnoses Pulmonary embolism I26.99 Pneumonia J18.9 Acute respiratory failure with hypoxia J96.01 Mass of right lung R91.8 Seropositive rheumatoid arthritis of multiple sites M05.79
[2022-03-28 17:03] LABS: Partial Thromboplastin Time 38.7 SECONDS (23.9-36.7)
[2022-03-28 22:27] LABS: Partial Thromboplastin Time 44.9 SECONDS (23.9-36.7)
[2022-03-29] VITALS (19 sets, daily range): BP systolic 95–134; BP diastolic 65–80; PULSE 60–95; RESP 16–22; TEMP 36.1–37; O2SAT 87–98
[2022-03-29] MEDS: ipratropium-albuterol 3 mL Neb INHALATION (01:17)
[2022-03-29] MEDS: piperacillin-tazobactam 3.375 GM in sodium chloride 0.9% (plus) 50 ML IV (01:55)
[2022-03-29] MEDS: acetaminophen 325 mg Tablet 650 MG PO (02:04)
[2022-03-29] MEDS: azithromycin 500 MG in sodium chloride 0.9% 250 ML 250 MG IV (05:17)
[2022-03-29 05:50] LABS: Basophils # 0.1 10^3/uL (0.0-0.1); Basophils % 0.5 %; Eosinophils # 0.7 10^3/uL (0.0-0.8); Hematocrit 36.9 % (37.0-47.0); Hemoglobin 11.8 g/dL (11.5-15.3); Lymphocytes # 0.9 10^3/uL (0.8-4.8); Mean Corpuscular Hemoglobin 30.5 pg (28.0-34.0); Mean Corpuscular Volume 95.3 fl (81-99); Mean Platelet Volume 11.5 fL (7.4-10.4); Monocytes # 1.1 10^3/uL (0.2-0.9); Monocytes % 8.7 %; Neutrophils # 9.53 10^3/uL (1.8-7.7); Nucleated Red Blood Cells % 0 %; Platelet Count 369 10^3/cmm (130-400); Red Blood Count 3.87 10^6/uL (4.1-5.3); Red Cell Distribution Width 14.6 % (12.1-15.1); White Blood Count 12.4 10^3/uL (4.0-10.0)
[2022-03-29 06:09] LABS: Blood Urea Nitrogen 12 mg/dL (8-23); Calcium 8.7 mg/dL (8.5-10.5); Carbon Dioxide 23 mmol/L (22-29); Chloride 105 mmol/L (98-107); Glomerular Filtration Rate 72.7 mL/min (90-130); Glucose 84 mg/dL (65-115); Osmolality Calculated 285 mOsm/kg (285-295); Sodium 138 mmol/L (136-145)
[2022-03-29 06:12] LABS: Anion Gap 14.5 (5-19); Potassium 4.5 mmol/L (3.5-5.1)
[2022-03-29] MEDS: sodium chloride 0.9% 1,000 ML 30 ML IV (06:48)
--- NOTE | 2022-03-29 06:56 | ANES.PREANE2 ---
Pre-Anesthetic Assessment Height/Weight: Height 1.63 m Weight 65.589 kg Temp Pulse Resp BP Pulse Ox O2 Del Method O2 Flow Rate 98.6 F 71 20 H 119/75 93 3 03/29/22 06:35 03/29/22 06:35 03/29/22 06:35 03/29/22 06:35 03/29/22 06:35 03/29/22 06:35 03/29/22 06:35 Preop Diagnosis: Lung mass Operation Date: 03/29/22 07:00 Proposed Procedures p Bronchoscopy(Not Applicable) - Mayco Swenson MD s Ebus(Not Applicable) - Mayco Swenson MD Was Beta Yosef taken within 24 hours: N/A Was Clonidine taken within 24 hours: N/A Social Tobacco Exam alert, oriented x 3, clear to auscultation bilaterally and regular rate & rhythm Airway Submandibular: within normal limits Cervical ROM: within normal limits Mallampati: Class II Dentition: full History/ROS No significant history except as noted and No significant complaints Pulmonary Chronic Obstructive Pulmonary Disease, Exertional Dyspnea and Shortness of Breath recent PE CV/HEM Hypertension None reported Hepatic None reported GI None reported Metabolic None reported Musc/skel Lower Back Pain, Rheumatoid Arthritis and Weakness Neuropsych None reported Anesthetic Plan ASA status: 3 Anesthesia: Anesthesia Evaluation and General Risk of > 500 ml blood loss (7ml/kg in children): No Medications/Allergies Home Medications Medication Instructions Recorded Confirmed Last Taken Type albuterol sulfate 90 mcg/actuation 1 inh inhalation QID PRN shortness 09/30/21 03/25/22 Unknown Rx aerosol inhaler of breath or wheezing #8.5 grams gabapentin 400 mg capsule 400 mg PO TID 10/06/21 03/25/22 03/23/22 History amlodipine 10 mg tablet 5 mg PO DAILY 10/27/21 03/25/22 03/23/22 History potassium chloride 10 mEq 10 meq PO DAILY #30 tabs 10/27/21 03/25/22 Unknown Rx tablet,extended release (Klor-Con) furosemide 20 mg tablet See Rx Instructions .Route 12/14/21 03/25/22 Unknown Rx .COMPLEX #30 tabs prednisone 5 mg tablet 5 mg PO DAILY #90 tabs 02/08/22 03/25/22 03/23/22 Rx tofacitinib 5 mg tablet (Xeljanz) 5 mg PO BID #60 tabs 02/08/22 03/25/22 03/23/22 Rx cyanocobalamin (vitamin B-12) 100 100 mcg PO DAILY 03/25/22 03/25/22 03/23/22 History mcg tablet (Vitamin B-12) lisinopril 10 1 tab PO DAILY 03/25/22 03/25/22 03/23/22 History mg-hydrochlorothiazide 12.5 mg tablet omeprazole 40 mg capsule,delayed 40 mg PO DAILY 03/25/22 03/25/22 03/23/22 History release Allergies Allergy/AdvReac Type Severity Reaction Status Date / Time No Known Allergies Allergy Verified 03/25/22 08:07 Current Medications Generic Name Dose Route Start Last Admin Trade Name Freq PRN Reason Stop Dose Admin Acetaminophen 650 mg 03/25/22 11:14 03/29/22 02:04 Acetaminophen 325 Mg Tablet PO 650 mg Q6H PRN Administration Mild/Mod Pain Or Temp >/= 101 Albuterol/Ipratropium 3 ml 03/25/22 20:00 03/29/22 01:17 Ipratropium-Albuterol 3 Ml Neb INHALATION 3 ml Q6H.RESP EBONY Administration Amlodipine Besylate 5 mg 03/26/22 09:00 03/28/22 09:26 Amlodipine 5 Mg Tablet PO 5 mg DAILY EBONY Administration Budesonide 0.5 mg 03/25/22 20:00 03/28/22 20:29 Budesonide 0.5 Mg/2 Ml Neb INHALATION 0.5 mg BID.RESPIRATORY EBONY Administration Gabapentin 400 mg 03/25/22 15:00 03/28/22 20:53 Gabapentin 400 Mg Capsule PO 400 mg TID EBONY Administration Azithromycin 500 mg/ Sodium 250 mls @ 250 mls/hr 03/26/22 06:00 03/29/22 05:17 Chloride IV 250 mls/hr Q24H EBONY Administration Protocol Piperacillin Sod/Tazobactam 50 mls @ 12.5 mls/hr 03/26/22 09:00 03/29/22 05:18 Sod 3.375 gm/ Sodium Chloride IV Infused Q8H EBONY Infusion Heparin Sodium/Sodium Chloride 25,000 unit in 500 mls @ 0 mls/hr 03/28/22 08:30 03/28/22 10:37 Heparin Drip IV 13.72 unit/kg/hr .Q0M EBONY 18 mls/hr Administration Protocol Per Protocol Sodium Chloride 1,000 mls @ 30 mls/hr 03/29/22 06:15 03/29/22 06:48 Sodium Chloride 0.9% IV 03/30/22 06:14 30 mls/hr .Q24H EBONY Administration Lisinopril 10 mg 03/26/22 09:00 03/28/22 09:26 Lisinopril 10 Mg Tablet PO 10 mg DAILY EBONY Administration Morphine Sulfate 1 mg 03/26/22 20:01 03/27/22 02:06 Morphine 4 Mg/Ml Sdv 1 Ml IVP 1 mg Q4H PRN Administration SEVERE PAIN Pantoprazole Sodium 40 mg 03/26/22 09:00 03/28/22 09:[address] 40 Mg Tablet PO 40 mg DAILY EBONY Administration Potassium Chloride 10 meq 03/26/22 09:00 03/28/22 09:26 Potassium Chloride Er 10 Meq Tablet PO 10 meq DAILY EBONY Administration Prednisone 5 mg 03/26/22 09:00 03/28/22 09:26 Prednisone 5 Mg Tablet PO 5 mg DAILY EBONY Administration PFSH Anesthesia Medical History Benign essential HTN Diagnosed in 2018 and is well controlled by medications managed by her primary care provider. 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 S/P right rotator cuff repair Performed in June of 2012 S/P tubal ligation Performed in the early Status post bilateral knee replacements Performed in 2018 Family History Father Hyperlipidemia Hypertension Grandmother Stroke paternal Heart disease paternal Mother Heart disease Denies family history of Colon cancer Ovarian cancer Diabetes DVT (deep venous thrombosis) Breast cancer Anesthesia complication Bleeding disorder Pulmonary embolism Uterine cancer Thyroid condition Social History Smoking and tobacco status: current every day smoker cigarettes [ Other cigarette details: started at age 16] Alcohol intake: current Alcohol intake frequency: holidays/special occasions only Current occupational status: employed Current occupation: [employer] History of recent travel: No Additional social history: has a suppressed immune system Data Anesthesia 03/29/22 05:19 03/29/22 05:19 Short CBC 03/29/22 Range/Units 05:19 WBC 12.4 H (4.0-10.0) 10^3/uL Hgb 11.8 (11.5-15.3) g/dL Hct 36.9 L (37.0-47.0) % MCV 95.3 (81-99) fl Plt Count 369 (130-400) 10^3/cmm Neut % (Auto) 77.0 % Neut # (Auto) 9.53 H (1.8-7.7) 10^3/uL BMP 03/29/22 05:19 Sodium 138 Potassium 4.5 Chloride 105 Carbon Dioxide 23 BUN 12 Creatinine 0.8 Glucose 84 Calcium 8.7 Coags 03/28/22 03/28/22 03/28/22 10:00 16:32 21:55 APTT 29.2 38.7 H 44.9 H Cardiac Studies: Echocardiogram 03/02/22
[2022-03-29] MEDS: lidocaine 1% INJ 10 mL (per mL) 20 ML XX (07:24)
[2022-03-29] MEDS: EPINEPHrine 1 mg/mL INJ XX (08:04)
--- NOTE | 2022-03-29 08:09 | P.OP_ITS ---
Operative Report Date of procedure: March 29, 2022 Pre-op diagnosis: Preop Diagnosis Lung mass Post-op diagnosis: Suspicious lung malignancy Procedure done: 20220 Dx Bronchoscope w/Washings or airway inspection 00773 Dx Bronchoscope w/BAL 47328 Bronchoscopy w/ therapeutic aspiration of the tracheobronchial tree (clearance of airway secretions, removal of mucus plugs) 45146 EBUS Sampling 1/2 nodes Brief History: Sabrina Mendenhall is a 61 year old female with PMH GERD, HTN, Osteoporosis, seropositive RA, COPD presented to the hospital on 03/25/22 with shortness of breath, and chest discomfort on the left side, underneath her left breast and around her left ear.? Reported orthopnea and occasional wheezing; CTA chest showed tiny filling defect in a right lower lobe pulmonary artery branch, possible subacute to chronic pulmonary embolism.? There is a 1.6 cm noncalcified, irregular/spiculated mass in the posterior right upper lobe. There is a 2.2 cm necrotic mass adjacent to the right minor fissure. There is a patchy increase in the interstitial markings in the right lung, potentially due to lymphangitic spread of malignancy.? ? Small left pleural effusion with a subpulmonic component. There is fluid in the right minor fissure. There is a mild pericardial effusion. Calcified coronary artery atherosclerotic plaque visualized. There is right hilar and mediastinal lymphadenopathy. With CT scan showing concerning features for malignancy-today patient is going for bronchoscopic evaluation and endobronchial ultrasound-guided biopsies of hilar and mediastinal lymph nodes. Procedure: 85545 Dx Bronchoscope w/Washings or airway inspection 93914 Dx Bronchoscope w/BAL 74669 Bronchoscopy w/ therapeutic aspiration of the tracheobronchial tree (clearance of airway secretions, removal of mucus plugs) 33194 EBUS Sampling 1/2 nodes Indication: CT chest findings suspicious for lung malignancy-there is 1.6 cm noncalcified irregular spiculated mass in the posterior right upper lobe. 2.2 cm necrotic mass adjacent to the right minor fissure. Right hilar and mediastinal lymphadenopathy Description of the procedure: The procedure was explained to the patient and the consent was obtained. The patient was brought to the OR. Anesthesia: The patient underwent endotracheal intubation for general ane sthesia. Local anesthesia: The Vocal Chords/ Valeria, right and left mainstem bronchi were anesthetized with 1% lidocaine, 3 mL. Following induction of general anesthesia, the flexible bronchoscope used for initial inspection (36545) and airway clearance (82130). The scope was advanced through the LMA/ ET tube. The Vocal chords/trachea/lower trachea mucosa appeared normal, no endotracheal lesion was seen. The valeria was sharp. The valeria, the right and left mainstem bronchi are anesthetized with 1% lidocaine. In a systematic manner bilateral bronchial tree was then examined. The bronchoscope was then introduced into the right mainstem bronchus. The right upper lobe, right middle lobe and right lower lobe bronchi were examined up to the third subsegmental level and no abnormalities were identified. There were significant mucus secretions which were suctioned right away. The bronchoscope was advanced into the left mainstem bronchus. The mucosa appeared normal with no endobronchial lesions. The left upper lobe, lingula and left lower lobe bronchi were examined up to the third subsegmental level and no abnormalities were identified. Mucosa appeared normal with no endobronchial lesion, active bleeding or mucous plug. There were some mucus secretions in lower lobe-which were suctioned right away. After initial inspection as well as airway clearance with flexible bronchoscope (59367), Endobronchial ultrasound (EBUS )was introduced and did surveillance of mediastinal and hilar lymph nodes. There were lymph nodes seen at stations 11 R/10 R/7/4R, lymph nodes to biopsy. Fine-needle aspiration biopsies (22320) were performed from station 7 and station 4R. There was some evidence of grade 2 bleeding-which is controlled with instillation of cold saline as well as diluted epinephrine. EBUS was retracted, and reintroduced diagnostic bronchoscope to check for any evidence of bleeding. To obtain bronchoalveolar lavage (00767), after wedging with bronchoscope in right middle lobe-30 cc normal saline was instilled-had a fluid return 15 cc. After making sure there is no active bleeding bronchoscope was retracted and procedure terminated. Samples: A. Station 7-EBUS FNAC 1. Total of 3 passes were made using needle aspiration(00876); 1 pass used for touch prep - reported positive for malignancy; remaining material were placed in formalin for histopathology B. Station 4R-given FNA C 1. Total of 3 passes were made using needle aspiration(52592); 1 pass used for touch prep - reported negative for malignancy; remaining material were placed in formalin for histopathology C. Bronchoalveolar lavage (73165) from right middle lobe-30 cc normal saline instilled and received 15 cc fluid return -BAL fluid sent for cell count, cultures, cytology Complications: None.The patient was extubated and brought to the PACU in stable condition. Postprocedure chest x-ray: No evidence of pneumothorax Disposition: Patient can can be discharged to the floor. After switching to oral anticoagulation patient can be discharged home. Pt, and his accompanying family are aware that I am going to call them to update final biopsy results once available. I will give a 1 week follow-up appointment in my clinic.
--- NOTE | 2022-03-29 08:31 | XR_ITS ---
WS: [id number] Exam: XR chest 1V portable [id number] Date/Time of Exam: 03/29/2022 8:46 AM Reason For Exam: post bronch Comparison 03/25/2022. Again noted is an enlarged right hilum with right perihilar and right lower lobe infiltrate. 3 cm lob ulated nodular density in the right suprahilar region. There is also infiltrate and atelectasis in th e left lower lobe with small left basal pleural effusion. Cardiomediastinal silhouette is stable in a ppearance. No pneumothorax. Pulmonary hyperinflation which may indicate COPD. Bony structures are unr emarkable. Fusion hardware in the lower C-spine. Rotator cuff anchoring screw in the right humeral he ad. XR/XR chest 1V portable [id number] IMPRESSION: 1. Enlarged right pulmonary hilum with 3 cm lobulated mass in the suprahilar re gion. 2. Infiltrate in the right perihilar region and right lower lobe unchanged. The re is also infiltrate in the left lower lobe with atelectasis. Some infiltrate in the lingula. Small left basal pleural effusion. Probable COPD.
[2022-03-29] MEDS: ipratropium 0.5 mg/2.5 mL Neb 0.25 MG INHALATION (09:06)
--- NOTE | 2022-03-29 09:25 | PC.NURSE ---
0831- The patient started having a very hard time breathing and said that her chest hurt. Xray was here to get chest Xray and I had Macrina, RN get stuff for a breathing treatment. Pt started feeling better and breathing better shortly after the breathing treatment started.
[2022-03-29] MEDS: cetylpyridinium Lozenge 1 EACH MUCOUS MEM (09:38)
--- NOTE | 2022-03-29 13:13 | PM.DCS ---
Discharge Providers Date of Admission: 03/25/22 09:18 Date of Discharge: March 29, 2022 Attending Provider at Admission: Jefry Gutiérrez MD Attending Provider at Discharge: Paul Lawler MD Primary Care Provider: Gunnar Corey MD Diagnoses at Discharge Discharge Diagnosis (1) Pulmonary embolism: Status: Acute (2) Pneumonia: Status: Acute (3) Acute respiratory failure with hypoxia: Status: Acute (4) Mass of right lung: Status: Acute (5) Seropositive rheumatoid arthritis of multiple sites: Status: Acute Reason for Visit Reason for Visit: CP Brief History: History per HPI: Sabrina Mendenhall is a 61 year old female who presents to the hospital with shortness of breath, and chest discomfort on the left side, underneath her left breast and around her left ear.? She reports the chest discomfort was very sharp in nature, and it is gone since receiving medicine in the ER.? She reports she gets a little bit more short of breath with laying down.? She wheezes on occasion.? She has been smoking most of her life.? She is under stress lately caring for her with lung cancer at home.? She had COVID, in October and has had a persistent cough since that time.? No hemoptysis, or fever.? She has not required oxygen.? She is on treatment for rheumatoid arthritis and is on daily steroids. Hospital Course Hospital Course Patient was admitted to hospital further evaluation and management of hypoxic respiratory failure which is thought to be secondary to COPD exacerbation. On admission CTA was done which was concerning for subacute or chronic pulmonary embolism along with lung mass which is highly concerning for malignancy. Pulmonology was consulted and patient was on anticoagulation. Patient underwent bronchoscopy and EBUS on 03/29. She tolerated the procedure well. During hospitalization patient required up to 4 to 5 L of oxygen supplementation at rest. She has been discharged in hemodynamically stable condition on oral anticoagulation, inhalers and nebulization treatment along with 5-day course of oral antibiotics. She is to follow-up with pulmonology within next 1 week and with a primary care provider within next 2 weeks. Physical Exam Narrative: General exam is a white female, no distress, on 4 L of oxygen Neck is supple no lymphadenopathy or thyromegaly Cardiovascular regular rate and rhythm without murmur Lungs diminished breath sounds bilaterally. A faint expiratory wheezes heard on the left Abdomen is soft with positive bowel sounds. No obvious organomegaly Extremities no cyanosis clubbing or edema, cap refill brisk Skin no rash Discharge Data Studies Completed and Pending Completed Studies During Hospitalization Category Date Time Status CT angio chest PE protcl [id number] Stat Cat Scan 03/25/22 06:42 Completed CXRP [XR chest 1V portable [id number]] Routine Exams 03/29/22 08:31 Completed XR chest 1V portable [id number] Stat Exams 03/25/22 05:13 Completed Pending at discharge Category Date Time Status BMP [Basic Metabolic Panel] AM LABS Lab 03/30/22 04:00 Ordered BMP [Basic Metabolic Panel] AM LABS Lab 03/31/22 04:00 Ordered Blood Culture Stat Lab 03/25/22 05:47 Results Bronchoalv Lavage Culture & GS Routine Lab 03/29/22 08:07 Received CBC Auto Diff [Complete Blood Count w/Auto] AM LABS Lab 03/30/22 04:00 Ordered CBC Auto Diff [Complete Blood Count w/Auto] AM LABS Lab 03/31/22 04:00 Ordered Cyto Order Verification Routine Lab 03/29/22 07:39 Ordered Cyto Order Verification Routine Lab 03/29/22 07:57 Ordered Platelet Count Q2D Lab 03/30/22 04:00 Ordered Platelet Count Q2D Lab 04/01/22 04:00 Ordered Sputum Culture and Gram Stain Stat Lab 03/25/22 06:44 Uncollected Cytology [PTH] Routine Pth 03/29/22 07:38 Received Cytology [PTH] Routine Pth 03/29/22 07:56 Received Pathology: Surgical [PTH] Routine Pth 03/29/22 08:11 Ordered Radiology Impressions Chest CTA 03/25/22 06:42 IMPRESSION: 1. 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 2. Tiny subacute to chronic pulmonary embolus in the right lower lobe. ADDENDUM: 03/25/22 0821 THIS REPORT CONTAINS FINDINGS THAT MAY BE CRITICAL TO PATIENT CARE. The exam findings were verbally communicated by me via telephone conference to MOSHE BEASLEY at 8:12 AM HEMSTITCHER on 03/25/2022. The findings were acknowledged and understood. Chest X-Ray 03/29/22 08:31 IMPRESSION: 1. Enlarged right pulmonary hilum with 3 cm lobulated mass in the suprahilar region. 2. Infiltrate in the right perihilar region and right lower lobe unchanged. There is also infiltrate in the left lower lobe with atelectasis. Some infiltrate in the lingula. Small left basal pleural effusion. Probable COPD. Laboratory Results WBC 12.4 10^3/uL (4.0-10.0) H 03/29/22 05:19 RBC 3.87 10^6/uL (4.1-5.3) L 03/29/22 05:19 Hgb 11.8 g/dL (11.5-15.3) 03/29/22 05:19 Hct 36.9 % (37.0-47.0) L 03/29/22 05:19 MCV 95.3 fl (81-99) 03/29/22 05:19 MCH 30.5 pg (28.0-34.0) 03/29/22 05:19 MCHC 32.0 g/dL (30.0-36.0) 03/29/22 05:19 RDW 14.6 % (12.1-15.1) 03/29/22 05:19 Plt Count 369 10^3/cmm (130-400) 03/29/22 05:19 MPV 11.5 fL (7.4-10.4) H 03/29/22 05:19 Neut % (Auto) 77.0 % 03/29/22 05:19 Lymph % (Auto) 7.0 % 03/29/22 05:19 [place] % (Auto) 8.7 % 03/29/22 05:19 Eos % (Auto) 6.0 % 03/29/22 05:19 Baso % (Auto) 0.5 % 03/29/22 05:19 Neut # (Auto) 9.53 10^3/uL (1.8-7.7) H 03/29/22 05:19 Lymph # (Auto) 0.9 10^3/uL (0.8-4.8) 03/29/22 05:19 [place] # (Auto) 1.1 10^3/uL (0.2-0.9) H 03/29/22 05:19 Eos # (Auto) 0.7 10^3/uL (0.0-0.8) 03/29/22 05:19 Baso # (Auto) 0.1 10^3/uL (0.0-0.1) 03/29/22 05:19 Nucleated RBC % (auto) 0 % 03/29/22 05:19 Nucleated RBCs # 0.0 /100WBC 03/29/22 05:19 APTT 44.9 SECONDS (23.9-36.7) H 03/28/22 21:55 D-Dimer 3.83 ug/mIFEU (0-0.59) H 03/25/22 05:35 Sodium 138 mmol/L (136-145) 03/29/22 05:19 Potassium 4.5 mmol/L (3.5-5.1) 03/29/22 05:19 Chloride 105 mmol/L (98-107) 03/29/22 05:19 Carbon Dioxide 23 mmol/L (22-29) 03/29/22 05:19 Anion Gap 14.5 (5-19) 03/29/22 05:19 BUN 12 mg/dL (8-23) 03/29/22 05:19 Creatinine 0.8 mg/dL (0.5-0.9) 03/29/22 05:19 GFR Calculation 72.7 mL/min (90-130) L 03/29/22 05:19 Glucose 84 mg/dL (65-115) 03/29/22 05:19 Calculated Osmolality 285 mOsm/kg (285-295) 03/29/22 05:19 Calcium 8.7 mg/dL (8.5-10.5) 03/29/22 05:19 Total Bilirubin 0.5 mg/dL (0.15-1.2) 03/25/22 05:35 AST 10 U/L (0-32) 03/25/22 05:35 ALT 9 U/L (0-33) 03/25/22 05:35 Alkaline Phosphatase 90 U/L (35-105) 03/25/22 05:35 Troponin T Baseline 12 ng/L (0-10) H 03/25/22 05:35 Troponin T 120 Minute 9.56 ng/L (0-10) 03/25/22 07:50 Delta Troponin T -2.44 ABS# (0-10) L 03/25/22 07:50 Troponin T Hi Sens 6Hr 8.58 ng/L (0-10) 03/25/22 11:57 Troponin T Hi Sens 6Hr Delta -3.42 ng/L (0-12) L 03/25/22 11:57 NT-Pro-B Natriuret Pep 31 pg/mL (0-125) 03/25/22 05:35 Total Protein 7.4 g/dL (6.6-8.7) 03/25/22 05:35 Albumin 4.1 g/dL (3.5-5.2) 03/25/22 05:35 Globulin 3.3 g/dL (1.3-4.6) 03/25/22 05:35 Influenza Type A Ag negative (Negative) 03/25/22 05:35 Influenza Type B Ag negative (Negative) 03/25/22 05:35 SARS-CoV-2 Ag (Rapid) negative (Negative) 03/25/22 05:35 Vitals Last Vital Signs Temp 97.1 F L 03/29/22 09:05 Pulse 69 03/29/22 09:05 Resp 18 03/29/22 09:05 BP 125/76 03/29/22 09:05 Pulse Ox 87 L 03/29/22 11:17 O2 Del Method 03/29/22 09:05 O2 Flow Rate 5 03/29/22 11:17 Discharge Plan Discharge Patient Disposition: Home Condition: Stable Prescriptions: New lisinopril 10 mg Tablet 10 mg PO DAILY 30 Days Qty: 30 0RF Augmentin 500-125 mg tablet 1 tab PO Q8H 5 Days Qty: 15 0RF levofloxacin 500 mg tablet 500 mg PO Q24H 5 Days Qty: 5 0RF Trelegy Ellipta 100-62.5-25 mcg blister with device 1 inh inhalation DAILY Qty: 60 0RF ipratropium-albuterol 0.5 mg-3 mg(2.5 mg base)/3 mL solution for nebulization 3 ml inhalation Q8H Qty: 180 0RF Pulmicort 0.5 mg/2 mL suspension for nebulization 0.25 mg inhalation Q12H Qty: 60 0RF Eliquis DVT-PE Treat 30D Start 5 mg (74 tabs) tablets,dose pack See Rx Instructions .ROUTE .COMPLEX Qty: 74 0RF Rx Instructions: orally per package directions Continued albuterol sulfate 90 mcg/actuation HFA aerosol inhaler 1 inh inhalation QID PRN (Reason: shortness of breath or wheezing) Qty: 8.5 1RF Xeljanz 5 mg tablet 5 mg PO BID Qty: 60 4RF prednisone 5 mg tablet 5 mg PO DAILY Qty: 90 1RF gabapentin 400 mg capsule 400 mg PO TID potassium chloride [Klor-Con 10] 10 mEq tablet extended release 10 meq PO DAILY Qty: 30 6RF Rx Instructions: Take one tab daily on days that you are taking furosemide amlodipine 10 mg tablet 5 mg PO DAILY furosemide 20 mg tablet See Rx Instructions .ROUTE .COMPLEX Qty: 30 3RF Dose Instruction: TAKE ONE TABLET BY MOUTH IN THE MORNING FOR TWO weeks THEN NEEDED FOR swelling Rx Instructions: TAKE ONE TABLET BY MOUTH IN THE MORNING FOR TWO weeks THEN NEEDED FOR swelling Vitamin B-12 100 mcg Tablet 100 mcg PO DAILY omeprazole 40 mg capsule,delayed release(DR/EC) 40 mg PO DAILY Discontinued lisinopril-hydrochlorothiazide 10-12.5 mg tablet 1 tab PO DAILY Discharge Orders: Discharge Order (Routine); Ordered 03/29/22 Ordered By: Paul Lwaler Other Ambulatory Orders: DME: Oxygen (Order) Location: None Selected Ordered By: Paul Lawler Referrals: [facility] [place] [Outside] Mayco Swenson MD [Physician] - 04/08/22 9:45 am Gunnar Corey MD [Primary Care Provider] - 04/05/22 1:20 pm Discharge Diet: Cardiac Discharge Activity: Resume usual activity and Increase activity as tolerated Patient Instructions: Amoxicillin/Clavulanate Potassium (By mouth), Levofloxacin (By mouth), Budesonide (By breathing), Fluticasone/Umeclidinium/Vilanterol (By breathing), Opioid Safety Activity Restrictions/Additional Instructions: Eliquis is a blood thinner which he supposed to take 10 mg twice daily for next 1 week followed by 5 mg twice daily. You need to be on the blood thinner for the rest of your life. Please follow-up with a primary care provider within next 2 weeks. Please follow-up with Dr. Swenson from pulmonology within next 1 week for further discussion of results from bronchoscopy and biopsy. Continue with nebulization treatment as discussed in detail. Discharge Attestations Time Spent in Discharge Care*: greater than 30 min Specific Discharge Activities: educating patient, discussing with pcp/other providers, discussing with table and desk finisher/social workers/dc planners, documenting/other paperwork and evaluating patient/reviewing data Status at Discharge: Cognitive status at discharge: cognitively intact, Behavioral status at discharge: cooperative, Functional status at discharge: independent ambulation, Overall status at discharge: patient is progressing back to baseline Quality Metrics Clinical Quality Measures [ Venous Thromboembolism { Contraindication to Overlap Therapy: None; Overlap threrpy ordered; VTE Discharge Education: Education about anticoagulant therapy/Care Notes given; Deep Vein Thrombosis/Pulmonary Embolism Present on Admission: Yes;}] Coding Level of Care Code Acute Chg FW DC note Diagnoses Pulmonary embolism I26.99 Pneumonia J18.9 Acute respiratory failure with hypoxia J96.01 Mass of right lung R91.8 Seropositive rheumatoid arthritis of multiple sites M05.79
[2022-03-29] MEDS: ipratropium 0.5 mg/2.5 mL Neb INHALATION (13:15)
[2022-03-29] MEDS: albuterol 2.5 mg/3 mL Neb INHALATION (13:28)
[2022-03-29 14:13] LABS: Cyto Order Verification Order Verified
[2022-03-29 14:14] LABS: Cyto Order Verification Order Verified
[2022-03-29] MEDS: gabapentin 400 mg Capsule PO (14:21)
--- NOTE | 2022-03-29 16:24 | ANE.PACU2 ---
Inpatient post-anesthesia follow up: Airway intact: Yes Vital signs: Temperature 97.8 F Pulse Rate 88 Respiratory Rate 18 Blood Pressure 134/74 Pulse Oximetry [6 Minute 87 Exercise Test on R oom Air] Pulse Oximetry [Ro om Air at 87 Rest] Pulse Oximetry 93 Oxygen Delivery Me thod Nasal Cannula Oxygen Flow Rate 3 Fraction of Inspir ed Oxygen Hydration adequate: Yes Nausea and vomiting: No Pain level: 1 Mental status: Baseline
[2022-04-02 11:36] LABS: PD-L1 (Clone 22C3) by IHC BBPL See Report
== END 2022-03-29 15:44 | disposition home or self-care (01) | DRG 175 ==
LOC: ER 09:22 → MEDSURG 10:31
PROVIDERS: Emergency Medicine; Internal Medicine; Internal Medicine Pulmonary Disease; Admitting Provider Internal Medicine; Emergency Provider Family Medicine; PCP Family Medicine; Visit Provider Student in an Organized Health Care Education/Training Program
PROC: 0BJ08ZZ Inspection of Tracheobronchial Tree, Via Natural or Artificial Opening Endoscopic (ICD-10-PCS; CPT 31622; principal; 2022-03-29 07:00)
PROC: BB4BZZZ Ultrasonography of Pleura (ICD-10-PCS; 2022-03-29 07:00)
DX: I26.99 Other pulmonary embolism without acute cor pulmonale (principal); J18.9 Pneumonia, unspecified organism; J96.01 Acute respiratory failure with hypoxia; J44.1 Chronic obstructive pulmonary disease with (acute) exacerbation; J44.0 Chronic obstructive pulmonary disease with (acute) lower respiratory infection; R91.8 Other nonspecific abnormal finding of lung field; M05.9 Rheumatoid arthritis with rheumatoid factor, unspecified; F17.210 Nicotine dependence, cigarettes, uncomplicated; Z63.6 Dependent relative needing care at home; Z86.16 Personal history of COVID-19; Z79.52 Long term (current) use of systemic steroids; Z79.51 Long term (current) use of inhaled steroids; I10 Essential (primary) hypertension; K21.9 Gastro-esophageal reflux disease without esophagitis; Z98.1 Arthrodesis status; Z96.653 Presence of artificial knee joint, bilateral; R59.0 Localized enlarged lymph nodes; M81.0 Age-related osteoporosis without current pathological fracture
CPT/HCPCS: 31624; 31645; 31652; 36415; 71045; 71275; 80048; 80053; 80503; 83880; 84484; 85025; 85378; 85730; 87040; 87070; 87205; 87426; 87641; 87804; 88305; 88341; 88342; 93005; 94640; 94760; 96365; 96367; 96372; 96375; 99285; J0171; J0456; J0696; J1100; J1644; J1650; J2270; J2405; J2543; J2704; J2710; J2930; J3010; J3490; J7030; J7050; J7512; J7613; J7626; J7644; Q9967

== ENCOUNTER 2022-04-21 08:01 | Oncology outpatient (recurring) (ONCR) | payer OTHER, SELFPAY | END 2022-05-04 23:59 | disposition home or self-care (01) | PROVIDERS: PCP Family Medicine; Visit Provider Internal Medicine Hematology & Oncology | DX: C34.11 Malignant neoplasm of upper lobe, right bronchus or lung (principal) ==

== ENCOUNTER 2022-05-08 06:11 | Outpatient (CLI) | payer OTHER, SELFPAY ==
--- NOTE | 2022-05-08 08:00 | PETR_ITS ---
PROCEDURE INFORMATION: Exam: PET/CT Skull Base to Mid-thigh Exam date and time: 05/08/2022 8:47 AM Age: 61 years old Clinical indication: Condition or disease; Primary cancer: Malignancy in right lung; Initial oncological staging assessment; Additional info: Cancer staging. History of bronchoscopy. LABS AND CLINICAL REPORTS: Glucose: 145 mg/dl Treatment strategy for malignancy (PET staging): Initial Staging (PI) TECHNIQUE: Imaging protocol: Following at least four-hour fasting and following the injection of F-18-FDG, low dose CT images were obtained. Then, PET images were obtained. Attenuation corrected images were constructed using the CT scan. Fused images of PET and CT were reviewed. The standardized uptake values (SUV) reported below are maximum values within a region of interest, expressed in gm/ml. Exam includes orbital meatal line to mid-thigh. Radiopharmaceutical: 13.52 mCi F-18 FDG (Fluorodeoxyglucose), IV. Time of imaging post radiopharmaceutical administration: 1 hour Injection site: Right antecubital COMPARISON: CT angio chest PE [facility] [id number] 03/25/2022 7:36 AM FINDINGS: Brain: Visualized brain has normal physiologic uptake. Pharynx: No abnormal uptake. Larynx: No abnormal uptake. Lungs, pleura and trachea: Elevated uptake in the posterior right lung pleural surface is noted with an SUV max 13.6, associated with a new moderate pleural effusion. Interval resolution of small left pleural effusion. Radiotracer avid right lung nodules and regions of patchy consolidation are noted. Examples: Right upper lobe measuring 1.4 cm in diameter on series 3, image 43, SUV max 9.4 (previously 1.6 cm in diameter); spiculated solid lesion in the right upper lobe measuring 2.5 x 2.5 cm on series 3, image 54 corresponding to the previously noted 2.2 cm necrotic mass described on the prior CT, SUV max 9.3; and right perihilar region measuring 1.7 cm in diameter on series 3, image 47, SUV max 9.1 (similar in size). There is new extensive truncation and/or partial obstruction of the right middle lobe bronchi compared with 03/25/2022. Moderate patchy consolidation in the right perihilar region and involving the right middle lobe and portions of the right lower lobe are noted and are increased. The greatest activity is noted in regions of patchy density in the right upper lobe and superior segment of the right lower lobe for example on series 3, image 49, SUV max 5.6. Heart: Small pericardial effusion. No abnormal uptake. Mediastinal space: No abnormal uptake. Liver: No abnormal uptake. Gallbladder and bile ducts: No abnormal uptake. Pancreas: No abnormal uptake. Spleen: No abnormal uptake. Adrenal glands: No abnormal uptake. Kidneys and ureters: Normal physiologic uptake. Stomach and bowel: No abnormal uptake. There are scattered colonic diverticula. Vasculature: No abnormal uptake. There are diffuse atherosclerotic changes. Lymph nodes: There are similar in size radiotracer avid lymph nodes in the right supraclavicular region, mediastinum and right hilar region a flipped. Examples: Right supraclavicular space measuring 1.6 x 1.0 cm on series 3, image 31, SUV max 4.5; posterior to the right clavicle measuring 1.2 cm in diameter on series 3, image 33, SUV max 5.0; in the subcarinal space measuring 3.5 x 3.2 cm on series 3, image 49, SUV max 19.1 and clustered in the inferior right hilar region measuring 3.0 x 2.7 cm on series 3, image 56, SUV max 12.8. Bones/joints: No abnormal uptake in the visualized axial and appendicular skeleton. There is mild diffuse vertebral body spondylosis. Anterior metallic fusion at C5-C6 is noted. Soft tissues: No abnormal uptake in the visualized head, neck, chest, abdomen, pelvis, and extremities. METRICS: Mediastinal blood pool: SUV max 2.2 [id number] IMPRESSION: 1. Radiotracer avid right lung nodules are noted compatible with malignancy. A previously noted necrotic appearing right lung nodule now appears solid. 2. Increased areas of ill-defined consolidation in the right lung are noted suggestive of regions of a combination of probable pneumonitis, infectious infiltrates and/or atelectasis. This is associated with new extensive narrowing and/or obstruction of right middle lobe bronchi. 3. New moderate right pleural effusion with elevated uptake concerning for malignant effusion. Interval resolution of previously noted small left pleural effusion. 4. Similar mediastinal and right neck lymphadenopathy with elevated uptake concerning for malignancy. 5. Small pericardial effusion. 6. Additional nonurgent findings as detailed above.
== END 2022-05-08 06:12 | disposition home or self-care (01) ==
LOC: RAD 05-10 06:11
PROVIDERS: PCP Family Medicine; Visit Provider Internal Medicine Pulmonary Disease
DX: C34.90 Malignant neoplasm of unspecified part of unspecified bronchus or lung (principal)
CPT/HCPCS: 78815; A9552

== ENCOUNTER 2022-05-14 06:50 | Outpatient (CLI) | payer OTHER, SELFPAY ==
--- NOTE | 2022-05-14 07:15 | MR_ITS ---
WS: [id number] MRI BRAIN WITH AND WITHOUT CONTRAST HISTORY: Staging lung cancer. COMPARISON: None available. TECHNIQUE: Multiplanar imaging performed through the brain with MultiHance 14 ml's IV. No acute infarct. Small focal areas of hemorrhage are scattered throughout the brain. Small hemorrhag e in the RIGHT thalamus, lateral RIGHT temporal lobe in the parafalcine LEFT frontal lobe. These do n ot correspond to masses or enhancement. Mild atrophy and small vessel ischemic disease. Ventricles and extra-axial spaces are normal. Clivus and pituitary gland are normal. Visualized posterior fossa and brainstem are also normal. There are at least 5 peripherally enhancing masses within the brain consistent with metastatic diseas e. The largest measures 9 mm in the lateral LEFT temporal lobe cortex. There are additional smaller p eripherally enhancing metastatic lesions in the RIGHT temporal lobe and 6 mm metastatic lesion LEFT c alberto radiata. LEFT posterior frontal lobe and posterior RIGHT frontal lobe metastatic size. No signi ficant amount of surrounding edema. No areas of abnormal enhancement noted in the cerebellum. Dural venous sinuses are normal. Paranasal sinuses: Well aerated with no significant disease. Mastoid air cells: Normal. Calvarium and scalp: Normal. MR/MR head wo/w con [id number] IMPRESSION: 1. Peripherally enhancing subcentimeter masses within the brain consistent wit h metastatic disease. The largest measures 9 mm in the lateral LEFT temporal lo be. There is no mass effect or significant amount of edema surrounding the meta static sites. 2. There are a few scattered hemorrhagic foci which do not correspond to the e nhancing metastasis. 3. Mild atrophy and mild small vessel ischemic disease.
[2022-05-14] MEDS: gadobenate dimeglumine 20 mL vial IV (07:58)
== END 2022-05-14 06:51 | disposition home or self-care (01) ==
LOC: RAD 06:51
PROVIDERS: PCP Family Medicine; Visit Provider Family Medicine
DX: C34.90 Malignant neoplasm of unspecified part of unspecified bronchus or lung (principal); I67.82 Cerebral ischemia; G31.9 Degenerative disease of nervous system, unspecified
CPT/HCPCS: 70553; A9577

== ENCOUNTER 2022-05-17 12:27 | Inpatient (IN) | payer OTHER, SELFPAY ==
[2022-05-17] VITALS (7 sets, daily range): BP systolic 104–138; BP diastolic 79–90; PULSE 79–93; RESP 14–20; TEMP 36.4–36.7; O2SAT 85–95
--- NOTE | 2022-05-17 13:02 | CT_ITS ---
WS: [id number] CT CHEST ANGIOGRAPHY WITH REFORMATS HISTORY: hemoptysis, dyspnea, hypoxia, lung cancer, hx of pe, TECHNIQUE: Contiguous axial images are obtained through the chest during arterial injection of intrav enous contrast. Images are reconstructed to evaluate the pulmonary arteries. MIP imaging also reviewe d. All CT scans at [facility] use at least one of these dose optimization techniques: automat ed exposure control; mA and/or kV adjustment per patient size (includes targeted exams where dose is matched to clinical indication); or iterative reconstruction. CONTRAST: Omnipaque 350; 71 mL IV. DLP: 320.75 mGy.cm COMPARISON: 03/25/2022 Adequate but limited opacification of the pulmonary arteries. No central large pulmonary embolism. In complete filling defects are noted in the segmental branches LEFT lower lobe. No occlusive emboli. Op acifications of the RIGHT lower lobe pulmonary arteries is limited due to consolidation in the RIGHT thorax. Previously described embolic disease in the RIGHT lower lobe is not identified today. No RIGH T heart strain. Small pericardial effusion is increased in size. Normal size aorta. Moderate RIGHT pleural effusion has increased in size. Compressive atelectasis of the RIGHT lung. Den se area of consolidation involving the central lung and RIGHT upper lobe from pneumonia. Spiculated m ass previously described in the RIGHT upper lobe is partially obscured by the adjacent airway disease which could be lymphangitic spread of tumor or superimposed pneumonia. Mediastinal and hilar lymphadenopathy. There are numerous lymph nodes with the largest near the subca gonzales measuring up to 2.2 cm. These were described on the prior exam also. Filling defects within the SVC may be due to unopacified blood mixing with contrast. No adrenal mass. Visualized liver is negative. CT/CT angio chest PE protcl [id number] IMPRESSION: 1. Nonocclusive subsegmental pulmonary emboli LEFT lower lobe. 2. Moderate RIGHT pleural effusion has increased in size since 03/25/2022. 3. Increased areas of consolidation and spiculation throughout the RIGHT lung. Spiculated mass described in the RIGHT upper lobe is partially obscured by pro gressive airspace disease which may be lymphangitic spread of tumor or pneumoni a. 4. Mediastinal and hilar lymphadenopathy. 5. Filling defects in the LEFT subclavian vein. Tumor thrombus admixing of con trast with blood. Study submitted for interpretation at 2:32 PM.
--- NOTE | 2022-05-17 13:04 | W.ED.SOB ---
HPI - SOB/Dyspnea General: Chief Complaint: Shortness of Breath/Dyspnea Stated Complaint: SOB Time Seen by Provider: 05/17/22 12:51 History of Present Illness: HPI Narrative: Patient presents to the ER with complaints of shortness of breath x2 weeks. Patient reports she is currently on Levaquin with a clinical diagnosis of pneumonia. She has been on this for approximately 7 days with no relief and is currently getting worse. Patient reports coughing up blood and mucus for the last 2 weeks. Patient is currently on oxygen at 3 L per nasal cannula but is still short of breath. Patient does have a history of a PE and is on Eliquis. She also currently has a diagnosis of lung cancer. She says she currently has fluid on her lungs and is scheduled for a thoracentesis already MD elicited complaint: shortness of breath and cough Pertinent past history: pneumonia, PE and other (Lung cancer, pleural effusion) Onset (ago): week(s) (2 weeks) Context: recent illness Severity: moderate Exacerbating factors: exertion Relieving factors: nothing Known history of: recurrent pneumonia, PE and other (Lung cancer) Associated symptoms: Reports cough and hemoptysis; Deny abdominal pain, chest pain, extremity pain, fever(s), nausea, palpitations, polydipsia, polyuria or vomiting Treatment prior to arrival: oxygen Review of Systems General: Reports: 10 or more systems reviewed and unremarkable except in HPI and below Const: Denies: fever(s), chills or body aches Eyes: Denies: change in vision ENMT: Denies: throat pain or odynophagia Card: Reports: dyspnea on exertion; Denies: chest pain, palpitations, irregular heart rhythm or edema Resp: Reports: dyspnea and hemoptysis GI: Denies: abdominal pain, nausea, vomiting or diarrhea : Denies: flank pain, difficulty voiding, dysuria or urinary frequency Musc: Denies: neck pain, back pain or extremity pain Skin/Breast: Denies: rash, pruritus or erythema Neuro: Denies: headache(s), numbness in extremities or weakness in extremities Psych: Denies: anxiety, depression or mood swings Endo: Denies: polyuria, polydipsia or tired all the time Colt/Lymph: Reports: easy bruising and easy bleeding All/Imm: Denies: urticaria, throat swelling or tongue swelling PFSH ED PFSH: Medical History Adenocarcinoma of right lung Benign essential HTN Diagnosed in 2019 and is well controlled by medications managed by her primary care provider. She does not have a ct technologist. 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 S/P right rotator cuff repair Performed in June of 2012 S/P tubal ligation Performed in the early Status post bilateral knee replacements Performed in 2018 Family History Father Hyperlipidemia Hypertension Grandmother Stroke paternal Heart disease paternal Mother Heart disease Denies family history of Colon cancer Ovarian cancer Diabetes DVT (deep venous thrombosis) Breast cancer Anesthesia complication Bleeding disorder Pulmonary embolism Uterine cancer Thyroid condition Social History (Updated 04/27/22 @ 20:23 by Gunnar Corey MD) Smoking and tobacco status: former smoker Marital status: Marital status details: has lung cancer Physical Exam Const: COMMON NORMALS: average body habitus, patient oriented x3 and no limitations HENMT: COMMON NORMALS: normocephalic, atraumatic, hearing grossly normal bilaterally and moist oral mucous membranes HEAD & SCALP: normocephalic and atraumatic Eye: COMMON NORMALS: Equal, round and reactive pupils present, EOMs intact bilaterally and conjunctivae normal CONJUNCTIVA: Yes conjunctivae normal PUPIL: Yes Equal, round and reactive pupils present Neck/C-Spine: COMMON NORMALS: full ROM, no lymphadenopathy, supple, no JVD and Thyroid normal THYROID: Thyroid normal Lymph: LYMPHATIC: no lymphadenopathy noted Chest: COMMONS NORMALS: normal inspection of the chest Resp: EFFORT & INSPECTION: Yes able to speak in complete sentences AUSCULTATION: rhonchi and diminished lung sounds Cardio: COMMON NORMALS: no JVD, regular rate, regular rhythm, S1 normal heart sound present, S2 normal heart sound present and No gallops present (Cardio) RATE: regular rate RHYTHM: regular rhythm HEART SOUNDS: S1 normal heart sound present and S2 normal heart sound present GI: COMMON NORMALS: Normal to inspection, nondistended, normoactive bowel sounds present, Soft to palpation and No hepatosplenomegaly present PALPATION: Yes Soft to palpation, Yes Tenderness to palpation present (GI) Details: other (Epigastric region) and Yes No hepatosplenomegaly present : COMMON NORMALS: Yes no CVA tenderness BLADDER/KIDNEY EXAM: Yes no CVA tenderness Back/Pelvis: COMMON NORMALS: no CVA tenderness Neuro: COMMON NORMALS: patient oriented x3, CN's II-XII intact bilaterally, moves all extremities, no focal motor deficits and no sensory deficits noted Psych: COMMON NORMALS: mental status grossly normal, Normal thought process present, cooperative, normal affect and speech normal SPEECH: Yes normal speech THOUGHT PROCESS: Normal thought process present Course Vital Signs: Vital signs: Vital Signs Temperature 97.6 F 05/17/22 19:38 Pulse Rate 79 05/17/22 19:38 Respiratory Rate 14 05/17/22 19:38 Blood Pressure 129/88 05/17/22 19:38 Pulse Oximetry 91 05/17/22 19:38 Oxygen Delivery Me thod 05/17/22 19:38 Oxygen Flow Rate 3 05/17/22 19:38 MDM - SOB/Dyspnea Medical Decision Making Presents to the ER with worsening shortness of breath. Patient is currently on Levaquin for clinical diagnosis of pneumonia. Patient does have active lung cancer at this time. Patient says she is has coughed up blood recently. Patient does have a history of PE and she is currently on Eliquis. She normally uses 3 L of oxygen at home and does fairly decent however she feels more short of breath than normal currently. History and physical exam were performed EKG labs and imaging was obtained. Imaging showed subsegmental PEs, moderate right pleural effusion, worsening of the mass in her right lung, and filling defects in the left subclavian vein, an ABG was obtained on 3 L per nasal cannula that showed a PO2 of 63.4 patient's white count was 14.0. Dr. Flores was notified of this patient case was discussed with him. He agreed to admit the patient for further care and work-up. Differential Diagnosis Likely acute exacerbation of chronic obstructive airways disease and community acquired pneumonia Medical Records I reviewed the patient's medical records. Lab Data I reviewed the patient's lab results. 05/17/22 13:05 05/17/22 13:05 Labs/Radiology: Radiology Impressions Chest CTA 05/17/22 13:02 IMPRESSION: 1. Nonocclusive subsegmental pulmonary emboli LEFT lower lobe. 2. Moderate RIGHT pleural effusion has increased in size since 03/25/2022. 3. Increased areas of consolidation and spiculation throughout the RIGHT lung. Spiculated mass described in the RIGHT upper lobe is partially obscured by progressive airspace disease which may be lymphangitic spread of tumor or pneumonia. 4. Mediastinal and hilar lymphadenopathy. 5. Filling defects in the LEFT subclavian vein. Tumor thrombus admixing of contrast with blood. Study submitted for interpretation at 2:32 PM. Laboratory Results WBC 14.0 10^3/uL (4.0-10.0) H 05/17/22 13:05 RBC 4.93 10^6/uL (4.1-5.3) 05/17/22 13:05 Hgb 14.5 g/dL (11.5-15.3) 05/17/22 13:05 Hct 46.0 % (37.0-47.0) 05/17/22 13:05 MCV 93.3 fl (81-99) 05/17/22 13:05 MCH 29.4 pg (28.0-34.0) 05/17/22 13:05 MCHC 31.5 g/dL (30.0-36.0) 05/17/22 13:05 RDW 14.1 % (12.1-15.1) 05/17/22 13:05 Plt Count 184 10^3/cmm (130-400) 05/17/22 13:05 MPV 10.0 fL (7.4-10.4) 05/17/22 13:05 Neut % (Auto) 85.8 % 05/17/22 13:05 Lymph % (Auto) 4.2 % 05/17/22 13:05 [place] % (Auto) 6.0 % 05/17/22 13:05 Eos % (Auto) 3.0 % 05/17/22 13:05 Baso % (Auto) 0.4 % 05/17/22 13:05 Neut # (Auto) 12.02 10^3/uL (1.8-7.7) H 05/17/22 13:05 Lymph # (Auto) 0.6 10^3/uL (0.8-4.8) L 05/17/22 13:05 [place] # (Auto) 0.8 10^3/uL (0.2-0.9) 05/17/22 13:05 Eos # (Auto) 0.4 10^3/uL (0.0-0.8) 05/17/22 13:05 Baso # (Auto) 0.1 10^3/uL (0.0-0.1) 05/17/22 13:05 Nucleated RBC % (auto) 0 % 05/17/22 13:05 Nucleated RBCs # 0.0 /100WBC 05/17/22 13:05 PT 17.60 SECONDS (12.1-14.9) H 05/17/22 13:05 INR 1.40 (0.8-1.2) H 05/17/22 13:05 Specimen Type Arterial 05/17/22 13:32 Sample Site Radial, left 05/17/22 13:32 ABG pH 7.42 (7.35-7.45) 05/17/22 13:32 ABG pCO2 41.1 mmHg (35-45) 05/17/22 13:32 ABG pO2 63.4 mmHg (80.0-100.0) L 05/17/22 13:32 ABG HCO3 26.6 mmol/L (22-26) H 05/17/22 13:32 ABG Base Excess 1.9 mmol/L (-2.0-2.0) 05/17/22 13:32 Jesus Test Pos 05/17/22 13:32 Hematocrit 42.2 % (37-47) 05/17/22 13:32 Hgb O2 Saturation 91.7 % (95-100) L 05/17/22 13:32 Carboxyhemoglobin 1.5 %THgb (0.4-20.1) 05/17/22 13:32 Methemoglobin 0.6 % (0.4-1.5) 05/17/22 13:32 Total Hemoglobin 13.8 g/dL (12-16) 05/17/22 13:32 O2 Delivery Device Nc 05/17/22 13:32 O2 Liters/Min 5.0 % 05/17/22 13:32 New Car Get Ready Mechanic ID Cak 05/17/22 13:32 Sodium 143 mmol/L (136-145) 05/17/22 13:05 Potassium 4.3 mmol/L (3.5-5.1) 05/17/22 13:05 Chloride 105 mmol/L (98-107) 05/17/22 13:05 Carbon Dioxide 26 mmol/L (22-29) 05/17/22 13:05 Anion Gap 16.3 (5-19) 05/17/22 13:05 BUN 16 mg/dL (8-23) 05/17/22 13:05 Creatinine 0.8 mg/dL (0.5-0.9) 05/17/22 13:05 GFR Calculation 72.7 mL/min (90-130) L 05/17/22 13:05 Glucose 86 mg/dL (65-115) 05/17/22 13:05 Calculated Osmolality 296 mOsm/kg (285-295) H 05/17/22 13:05 Lactate 1.1 mmol/L (0.5-2.2) 05/17/22 13:05 Calcium 9.5 mg/dL (8.5-10.5) 05/17/22 13:05 Magnesium 2.1 mg/dL (1.7-2.3) 05/17/22 13:05 Total Bilirubin 0.3 mg/dL (0.15-1.2) 05/17/22 13:05 AST 13 U/L (0-32) 05/17/22 13:05 ALT 9 U/L (0-33) 05/17/22 13:05 Alkaline Phosphatase 90 U/L (35-105) 05/17/22 13:05 NT-Pro-B Natriuret Pep 96 pg/mL (0-125) 05/17/22 13:05 Total Protein 6.7 g/dL (6.6-8.7) 05/17/22 13:05 Albumin 3.9 g/dL (3.5-5.2) 05/17/22 13:05 Globulin 2.8 g/dL (1.3-4.6) 05/17/22 13:05 EKG Data EKG 1: I personally reviewed and interpreted this EKG as follows: EKG Interpretation Date: 05/17/22 EKG interpretation time: 13:42 Prior EKG tracings: not available for review Interpretation: EKG showed normal sinus rhythm with a ventricular rate of 77 bpm ND interval of 123 QRS duration of 67 and a QTc of [address]-T wave changes Discharge Plan Discharge Patient Disposition: Admitted As Inpatient Admit Provider: Deepak Flores Clinical Impression: Adenocarcinoma of right lung, High risk medication use, Pulmonary emboli, Community acquired pneumonia, Pleural effusion Condition: Stable Coding Level of Care Code ED Capacity Planning Engineer for Gabriella Le
[2022-05-17 13:19] LABS: Basophils # 0.1 10^3/uL (0.0-0.1); Basophils % 0.4 %; Eosinophils # 0.4 10^3/uL (0.0-0.8); Hemoglobin 14.5 g/dL (11.5-15.3); Lymphocytes # 0.6 10^3/uL (0.8-4.8); Lymphocytes % 4.2 %; Mean Corpuscular HGB Conc 31.5 g/dL (30.0-36.0); Mean Corpuscular Hemoglobin 29.4 pg (28.0-34.0); Mean Corpuscular Volume 93.3 fl (81-99); Monocytes # 0.8 10^3/uL (0.2-0.9); Neutrophils # 12.02 10^3/uL (1.8-7.7); Neutrophils % 85.8 %; Nucleated Red Blood Cells % 0 %; Platelet Count 184 10^3/cmm (130-400); Red Blood Count 4.93 10^6/uL (4.1-5.3); Red Cell Distribution Width 14.1 % (12.1-15.1)
[2022-05-17 13:39] LABS: Lactate (Lactic Acid level) 1.1 mmol/L (0.5-2.2)
--- NOTE | 2022-05-17 13:42 | ECG_ITS ---
[facility] Test Date: 2022-05-17 Pat Name: Sabrina Mendenhall Department: Room: Gender: Female Technical Operations Manager: : 1960 Requested By: Carlos Arteaga Order Number: [id number] Cristhian MD: Vincent Weinberg M.D. Measurements Intervals [place] Rate: 77 P: 49 UT: 123 QRS: 65 QRSD: 67 T: 62 QT: 361 QTc: 409 Interpretive Statements SINUS RHYTHM Poor R wave progression Compared to ECG 03/25/2022 11:35:48 No significant changes Electronically Signed On 05-18-2022 0:18:03 CDT by Vincent Weinberg M.D. [id number]
[2022-05-17 13:44] LABS: ABG PCO2 41.1 mmHg (35-45); ABG PH Result 7.42 (7.35-7.45); Arterial Blood Gas Hematocrit 42.2 % (37-47); Base Excess ABG 1.9 mmol/L (-2.0-2.0); Blood Gas Allen Test Pos; Blood Gas Operator Identificat CAK; Blood Gas Sample Site Radial, left; Blood Gas Sample Type Arterial; Carboxyhemoglobin 1.5 %THgb (0.4-20.1); HCO3 ABG 26.6 mmol/L (22-26); HGB O2 Sat 91.7 % (95-100); Methemoglobin 0.6 % (0.4-1.5); Oxygen Device NC; PO2 ABG 63.4 mmHg (80.0-100.0); Total Hemoglobin 13.8 g/dL (12-16)
[2022-05-17 13:47] LABS: Alanine Aminotransferase 9 U/L (0-33); Albumin Level 3.9 g/dL (3.5-5.2); Alkaline Phosphatase 90 U/L (35-105); Anion Gap 16.3 (5-19); Aspartate Amino Transferase 13 U/L (0-32); Blood Urea Nitrogen 16 mg/dL (8-23); Calcium 9.5 mg/dL (8.5-10.5); Carbon Dioxide 26 mmol/L (22-29); Chloride 105 mmol/L (98-107); Creatinine Clr Calc Pharmacy 68.0593; Globulin 2.8 g/dL (1.3-4.6); Glomerular Filtration Rate 72.7 mL/min (90-130); Glucose 86 mg/dL (65-115); Magnesium 2.1 mg/dL (1.7-2.3); NT Pro B Type Natriuretic Pept 96 pg/mL (0-125); Osmolality Calculated 296 mOsm/kg (285-295); Potassium 4.3 mmol/L (3.5-5.1); Sodium 143 mmol/L (136-145); Total Bilirubin 0.3 mg/dL (0.15-1.2); Total Protein 6.7 g/dL (6.6-8.7)
[2022-05-17] MEDS: iohexol 350 mg/mL 500 mL Btl (per mL) IV (14:28)
[2022-05-17] MEDS: piperacillin-tazobactam 3.375 GM in sodium chloride 0.9% (plus) 50 ML IV ×2 (16:43→23:43)
--- NOTE | 2022-05-17 16:49 | P.HP_ITS ---
Providers/Chief Complaint Primary Care Provider: Gunnar Corey MD Chief Complaint: SOB History of Present Illness Sabrina Mendenhall is a 61 year old female with past medical history of hypertension, COPD on 3 L home oxygen, CA right lung, came in with chief complaint of worsening shortness of breath, She was being managed as outpatient for pneumonia by the PCP, she was on levofloxacin, she failed to respond to levofloxacin, shortness of breath continued to progressively worsen.currently she is complaining of sob with even minimum exertion. Currently she has denied fever, chest pain, palpitation. CTA chest: Has shown Nonocclusive subsegmental pulmonary emboli LEFT lower lobe, moderate right pleural effusion, Increased areas of consolidation and spiculation throughout the RIGHT lung. Spiculated mass described in the RIGHT upper lobe is partially obscured by progressive airspace disease which may be lymphangitic spread of tumor or pneumonia. Mediastinal and hilar lymphadenopathy. Filling defects in the LEFT subclavian vein. Tumor thrombus admixing of contrast with blood. Pertinent labs: WBC 14, H&H: 14/46 , plt : 184 , serum sodium 143, serum potassium 4.3, BUN 16, serum creatinine 0.8 Review of Systems General: Reports: 10 or more systems reviewed and unremarkable except in HPI and below Narrative: 67-year-old currently not in acute distress being admitted for chest pain evaluation Const: Denies: fever(s), chills, body aches, change in appetite or diaphoresis Card: Reports: dyspnea on exertion; Denies: palpitations, edema, swelling of feet/ankles or leg pain with exertion Resp: Reports: dyspnea; Denies: productive cough, wheezing or pain on inspiration GI: Denies: abdominal pain, nausea, vomiting, diarrhea or constipation : Denies: flank pain Musc: Denies: back pain, extremity pain or extremity swelling Neuro: Denies: headache(s), difficulty walking or confusion Medications/Allergies Home Medications Medication Instructions Recorded Confirmed Last Taken Type gabapentin 400 mg capsule 400 mg PO TID 10/06/21 05/17/22 05/17/22 History prednisone 5 mg tablet 5 mg PO DAILY #90 tabs 02/08/22 05/17/22 05/17/22 Rx tofacitinib 5 mg tablet (Xeljanz) 5 mg PO BID #60 tabs 02/08/22 05/17/22 05/17/22 Rx cyanocobalamin (vitamin B-12) 100 100 mcg PO DAILY 03/25/22 05/17/22 05/17/22 History mcg tablet (Vitamin B-12) apixaban 5 mg tablet (Eliquis) 5 mg PO BID #60 tabs 04/27/22 05/17/22 05/17/22 Rx losartan 25 mg tablet 25 mg PO DAILY #30 tabs 04/27/22 05/17/22 05/17/22 Rx levofloxacin 500 mg tablet 500 mg PO DAILY #10 tabs 05/11/22 05/17/22 05/17/22 Rx amlodipine 10 mg tablet 5 mg PO DAILY 05/17/22 05/17/22 05/17/22 History lisinopril 10 mg tablet 10 mg PO DAILY 05/17/22 05/17/22 05/17/22 History Allergies Allergy/AdvReac Type Severity Reaction Status Date / Time No Known Allergies Allergy Verified 04/21/22 08:17 PFSH Acute PFSH: Medical History Adenocarcinoma of right lung Benign essential HTN Diagnosed in 2019 and is well controlled by medications managed by her primary care provider. She does not have a pheresis specialist. Bilateral lower extremity edema GERD (gastroesophageal reflux disease) Hemorrhoids High risk medication use History of molar in 1992 - s/p treatment with methotrexate Immunization counseling Seropositive rheumatoid arthritis of multiple sites Surgical History S/p bilateral carpal tunnel release Left side performed in January, Right side performed in March, S/P cervical spinal fusion Performed in January 2009 S/P dilation and curettage Had 3 D&Cs performed for miscarriages and the last for gestational trop hoblastic disease S/P right rotator cuff repair Performed in June of 2012 S/P tubal ligation Performed in the early Status post bilateral knee replacements Performed in 2018 Family History Father Hyperlipidemia Hypertension Grandmother Stroke paternal Heart disease paternal Mother Heart disease Denies family history of Colon cancer Ovarian cancer Diabetes DVT (deep venous thrombosis) Breast cancer Anesthesia complication Bleeding disorder Pulmonary embolism Uterine cancer Thyroid condition Social History (Updated 04/27/22 @ 20:23 by Gunnar Corey MD) Smoking and tobacco status: former smoker Marital status: Marital status details: has lung cancer Vitals/I&O/Wt Last Vital Signs Temp 97.5 F L 05/17/22 12:32 Pulse 93 05/17/22 15:51 Resp 14 05/17/22 15:51 BP 108/86 05/17/22 15:51 Pulse Ox 95 05/17/22 15:51 O2 Del Method 05/17/22 15:51 O2 Flow Rate 3 05/17/22 15:51 Weight last 48 hrs Weight 65.771 kg Physical Exam Const: COMMON NORMALS: patient oriented x3 HENMT: COMMON NORMALS: normocephalic and atraumatic HEAD & SCALP: normocephalic and atraumatic Resp: COMMON NORMALS: clear to auscultation bilaterally EFFORT & INSPECTION: Yes symmetric chest movement AUSCULTATION: clear to auscultation bilaterally OTHER: Diminished air entry over rt lung stark Cardio: COMMON NORMALS: regular rate, regular rhythm, S1 normal heart sound present, S2 normal heart sound present, No gallops present (Cardio), No murmurs present (Cardio), No rub (Cardio) and Peripheral pulses 2+ throughout RATE: regular rate RHYTHM: regular rhythm HEART SOUNDS: S1 normal heart sound present and S2 normal heart sound present PERIPHERAL PULSES: Peripheral pulses 2+ throughout GI: COMMON NORMALS: Normal to inspection, nondistended, normoactive bowel sounds present, Soft to palpation, non-tender, No hepatosplenomegaly present and no masses AUSCULTATION: Yes normoactive bowel sounds PALPATION: Yes Soft to palpation and Yes No hepatosplenomegaly present RECTAL EXAM: deferred Extremity: COMMON NORMALS: no clubbing, cyanosis or edema and no pedal edema Neuro: COMMON NORMALS: patient oriented x3 Data 05/17/22 13:05 05/17/22 13:05 Micro: Microbiology 05/17/22 13:57 Blood Culture - Preliminary Blood SPECIMEN COLLECTED 05/17/22 13:52 Blood Culture - Preliminary Blood SPECIMEN COLLECTED A&P Assessment and plan (1) Pulmonary emboli: Qualifiers: Acute cor pulmonale presence: unspecified Chronicity: unspecified Pulmonary embolism type: unspecified Qualified Code(s): I26.99 - Other pulmonary embolism without acute cor pulmonale (2) Pleural effusion: (3) Adenocarcinoma of right lung: (4) Pneumonia: (5) Seropositive rheumatoid arthritis of multiple sites: Plan Sabrina Mendenhall is a 61 year old female with past medical history of hypertension, COPD on 3 L home oxygen, CA right lung, came in with chief complaint of worsening shortness of breath. Assessment: Pneumonia: CTA chest: Has shown Nonocclusive subsegmental pulmonary emboli LEFT lower lobe, moderate right pleural effusion, Increased areas of consolidation and spiculation throughout the RIGHT lung. Spiculated mass described in the RIGHT upper lobe is partially obscured by progressive airspace disease which may be lymphangitic spread of tumor or pneumonia. Mediastinal and hilar lymphadenopathy. Filling defects in the LEFT subclavian vein. Tumor thrombus admixing of contrast with blood. Blood culture Sputum Gram stain and culture Urine Legionella antigen Bacterial antigen panel MRSA PCR Currently she has been started on Zosyn DuoNebs Supplemental oxygen as needed Acute pulmonary embolism: Continue Eliquis for now Right-sided pleural effusion: Possibly malignant pleural effusion Plan for rt sided Thoracentesis. With pleural fluid analysis. 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 The largest measures 9 mm in the lateral LEFT temporal lobe. There is no mass effect or significant amount of edema surrounding the metastatic sites. There are a few scattered hemorrhagic foci which do not correspond to the enhancing metastasis. Mild atrophy and mild small vessel ischemic disease. Recent PET/CT Results :Reviewed Follow pulmonary as outpatient History of hypertension: Currently blood pressure is on softer side, hold home antihypertensive medications. CODE STATUS: Full code DVT prophylaxis: on therapeutic anticoagulation with Lovenox Attestations Medical Necessity Statement*: Patient is to be in hospital for management of pneumonia. Anticipated length of stay: Greater than 2 midnights Time Spent in Patient Care: Greater than 35 minutes (>than 50% of time spent in counselling and/or direct pt care on unit) . Coding Level of Care Code 82599 Diagnoses Pulmonary emboli I26.99 Acute cor pulmonale presence: unspecified Chronicity: unspecified Pulmonary embolism type: unspecified Pleural effusion J90 Adenocarcinoma of right lung C34.91 Pneumonia J18.9 Seropositive rheumatoid arthritis of multiple sites M05.79
[2022-05-17] MEDS: gabapentin 400 mg Capsule PO (20:01)
[2022-05-17] MEDS: apixaban 5 mg Tablet PO (20:01)
[2022-05-18] VITALS (8 sets, daily range): BP systolic 94–155; BP diastolic 60–78; PULSE 77–94; RESP 14–20; TEMP 36.6–36.9; O2SAT 90–94
[2022-05-18 04:35] LABS: Basophils # 0.1 10^3/uL (0.0-0.1); Basophils % 0.5 %; Eosinophils # 0.9 10^3/uL (0.0-0.8); Hematocrit 43.4 % (37.0-47.0); Hemoglobin 13.6 g/dL (11.5-15.3); Lymphocytes # 0.4 10^3/uL (0.8-4.8); Lymphocytes % 2.4 %; Mean Corpuscular HGB Conc 31.3 g/dL (30.0-36.0); Mean Corpuscular Hemoglobin 29.1 pg (28.0-34.0); Mean Corpuscular Volume 92.9 fl (81-99); Mean Platelet Volume 10.1 fL (7.4-10.4); Monocytes # 1.4 10^3/uL (0.2-0.9); Monocytes % 9.3 %; Neutrophils # 11.86 10^3/uL (1.8-7.7); Neutrophils % 81.3 %; Nucleated Red Blood Cells % 0 %; Platelet Count 178 10^3/cmm (130-400); Red Blood Count 4.67 10^6/uL (4.1-5.3); Red Cell Distribution Width 14.4 % (12.1-15.1); White Blood Count 14.6 10^3/uL (4.0-10.0)
[2022-05-18 04:49] LABS: INR 1.47 (0.8-1.2)
[2022-05-18 04:58] LABS: Alanine Aminotransferase 7 U/L (0-33); Albumin Level 3.2 g/dL (3.5-5.2); Alkaline Phosphatase 77 U/L (35-105); Anion Gap 14.2 (5-19); Aspartate Amino Transferase 10 U/L (0-32); Blood Urea Nitrogen 17 mg/dL (8-23); Calcium 8.9 mg/dL (8.5-10.5); Carbon Dioxide 27 mmol/L (22-29); Chloride 104 mmol/L (98-107); Creatinine Clr Calc Pharmacy 68.0593; Globulin 2.4 g/dL (1.3-4.6); Glomerular Filtration Rate 72.7 mL/min (90-130); Glucose 109 mg/dL (65-115); Osmolality Calculated 294 mOsm/kg (285-295); Potassium 4.2 mmol/L (3.5-5.1); Sodium 141 mmol/L (136-145); Total Bilirubin 0.4 mg/dL (0.15-1.2); Total Protein 5.6 g/dL (6.6-8.7)
[2022-05-18 05:03] LABS: Procalcitonin 0.04 ng/mL (0-0.5)
[2022-05-18] MEDS: predniSONE 5 mg Tablet PO (09:50)
[2022-05-18] MEDS: gabapentin 400 mg Capsule PO ×3 (09:50→20:09)
[2022-05-18] MEDS: piperacillin-tazobactam 3.375 GM in sodium chloride 0.9% (plus) 50 ML IV ×3 (09:50→23:40)
--- NOTE | 2022-05-18 09:51 | US_ITS ---
WS: [id number] ULTRASOUND ABDOMEN LIMITED CLINICAL INFORMATION: RUQ PAIN COMPARISON: None. FINDINGS: Liver Size: Normal. Craniocaudal length: 13.6 cm. Echogenicity: Heterogeneous and coarse Surface nodularity: None. Mass (size and location): None. Bile ducts Intrahepatic ducts: Normal. Common bile duct diameter: 0.3 cm. Gallbladder Slightly hydropic Gallstones: None. Gallbladder sludge: None. Gallbladder wall thickening: None. Pericholecystic fluid: None. Sonographic Mckeon sign: Absent. Pancreas Normal as visualized. Right kidney: Normal. Hydronephrosis: None. Size: 9.7 cm x 4.4 cm x 3.4 cm. Abdominal aorta and IVC Visualized portions are normal. Ascites: None. US/US abdomen limited [id number] IMPRESSION: 1. Coarse heterogeneous somewhat hypoechoic liver echotexture. Recommend corre lation with liver function studies. No visualized focal lesions. 2. Echogenic portal triads visualized in the liver, although nonspecific, can be seen with acute hepatitis. 3. Mild fluid distention of the gallbladder. No gallbladder wall thickening or pericholecystic fluid. 4. Normal common bile duct. 5. No hydronephrosis in RIGHT kidney.
[2022-05-18] MEDS: oxyCODONE-APAP 5-325 mg Tablet 1 TAB PO (10:11)
--- NOTE | 2022-05-18 10:21 | PC.CHAP ---
Pastoral Care Encounter/Spiritual Assessment Type of Contact [] Declined electric scoop operator visit [] Patient/Family/Request visit [] Outpatient visit [] Follow-up visit [] Physician referral [] Code/Alert [x] Routine visit [] Staff referral [] Actively dying [] Patient sleeping [x] Family support [] [] Out of room [] Palliative care [] [] Receiving care in room [] Pre-surgical visit [] Trauma [] Long length of stay [] ICU visit [] Other: Relational/Emotional Strength [x] Patient feels connected with others/family/visitors/staff [] Distress [] Loneliness/isolation [] Abandonment Spirituality of Patient [x] Person of Nadine [x] Attends Mosque of their Nadine [x] Believes in Prayer [] Reads Bible or Baptist materials [] There are Spiritual issues to be addressed [place] Interventions [x] Prayer [x] Active listening [] Non-anxious presence [x] Spiritual/emotional support [] Crisis/trauma care [] Spiritual counseling [] Bereavement support [] Provided bereavement packet [] Provided Bible/devotional materials [] Provided toy/stuffed animal, coloring book to patient or family member [] Provided Communion [] Anointing/[place] [] Salvation [x] Completed spiritual assessment [] Other: Impact on Illness or Injury [] Angry [] Fearful [] Anxious [] Often cries [] Exhaustion [] Unable to work [] Unable to attend temple [] Unable to walk/stand [] Unable to read [] Unable to drive [] Unable to eat/drink [] Unable to sleep [] Unable to be with family [] Patient intubated [] Other: Summary Time spent with patient 10 min
--- NOTE | 2022-05-18 11:43 | P.PN_ITS ---
Subjective Subjective: Patient was seen and examined this morning she was complaining of, worsening shortness of breath as well as epigastric abdominal pain, currently she is saturating well on 3 L supplemental oxygen. Medications: Medication Review Details: Generic Name Dose Route Start Last Admin Trade Name Freq PRN Reason Stop Dose Admin Apixaban 5 mg 05/17/22 18:00 05/18/22 11:14 Apixaban 5 Mg Ta blet PO Not Given BID EBONY Gabapentin 400 mg 05/17/22 21:00 05/18/22 09:50 Gabapentin 400 M g Capsule PO 400 mg TID EBONY Administration Piperacillin Sod/T azobactam 50 mls @ 12.5 mls /hr 05/17/22 16:30 05/18/22 09:50 Sod 3.375 gm/ So dium Chloride IV 12.5 mls/hr Q8H EBONY Administration Protocol Oxycodone/Acetamin ophen 1 tab 05/18/22 09:52 05/18/22 10:11 Oxycodone-Apap 5 -325 Mg Tablet PO 1 tab Q4H PRN Administration MODERATE PAIN Prednisone 5 mg 05/18/22 09:00 05/18/22 09:50 Prednisone 5 Mg Tablet PO 5 mg DAILY EBONY Administration Vitals/I&O/Wt Last Vital Signs Temp 98.1 F 05/18/22 08:00 Pulse 89 05/18/22 08:00 Resp 19 H 05/18/22 08:00 BP 155/73 05/18/22 08:00 Pulse Ox 90 05/18/22 08:00 O2 Del Method 05/18/22 04:00 O2 Flow Rate 3.5 05/18/22 08:00 05/17/22 05/18/22 05/18/22 22:59 06:59 14:59 Intake Total 170 / 170 170 / 170 Balance 170 / 170 170 / 170 Weight last 48 hrs Weight 65.771 kg Physical Exam Const: COMMON NORMALS: patient oriented x3 HENMT: COMMON NORMALS: normocephalic and atraumatic HEAD & SCALP: normocephalic and atraumatic Resp: COMMON NORMALS: clear to auscultation bilaterally EFFORT & INSPECTION: Yes symmetric chest movement AUSCULTATION: clear to auscultation bilaterally OTHER: Diminished air entry over rt lung stark Cardio: COMMON NORMALS: regular rate, regular rhythm, S1 normal heart sound present, S2 normal heart sound present, No gallops present (Cardio), No murmurs present (Cardio), No rub (Cardio) and Peripheral pulses 2+ throughout RATE: regular rate RHYTHM: regular rhythm HEART SOUNDS: S1 normal heart sound present and S2 normal heart sound present PERIPHERAL PULSES: Peripheral pulses 2+ throughout GI: COMMON NORMALS: Normal to inspection, nondistended, normoactive bowel sounds present AUSCULTATION: Yes normoactive bowel sounds RECTAL EXAM: deferred OTHER: Epigastric abdominal tenderness, no guarding no rigidity no rebound tenderness Extremity: COMMON NORMALS: no clubbing, cyanosis or edema and no pedal edema Neuro: COMMON NORMALS: patient oriented x3 Data 05/18/22 04:08 05/18/22 04:08 Micro: Microbiology 05/18/22 04:50 Bacterial Antigens - Final Urine,Voided 05/18/22 04:50 Legionella Urinary Antigen - Final Urine,Voided 05/17/22 13:57 Blood Culture - Preliminary Blood SPECIMEN COLLECTED 05/17/22 13:52 Blood Culture - Preliminary Blood SPECIMEN COLLECTED A&P Assessment and plan (1) Pulmonary emboli: Qualifiers: Acute cor pulmonale presence: unspecified Chronicity: unspecified Pulmonary embolism type: unspecified Qualified Code(s): I26.99 - Other pulmonary embolism without acute cor pulmonale (2) Pleural effusion: (3) Adenocarcinoma of right lung: (4) Pneumonia: (5) Seropositive rheumatoid arthritis of multiple sites: Kamla Mendenhall is a 61 year old female with past medical history of hypertension, COPD on 3 L home oxygen, CA right lung, came in with chief complaint of worsening shortness of breath. Assessment: Pneumonia: CTA chest: Has shown Nonocclusive subsegmental pulmonary emboli LEFT lower lobe, moderate right pleural effusion, Increased areas of consolidation and spiculation throughout the RIGHT lung. Spiculated mass described in the RIGHT upper lobe is partially obscured by progressive airspace disease which may be lymphangitic spread of tumor or pneumonia. Mediastinal and hilar lymphadenopathy. Filling defects in the LEFT subclavian vein. Tumor thrombus admixing of contrast with blood. Blood culture Sputum Gram stain and culture Urine Legionella antigen Bacterial antigen panel MRSA PCR Currently she has been started on Zosyn DuoNebs Supplemental oxygen as needed Acute pulmonary embolism: Continue Eliquis for now Right-sided pleural effusion: Possibly malignant pleural effusion Plan for rt sided Thoracentesis. With pleural fluid analysis. 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 The largest measures 9 mm in the lateral LEFT temporal lobe. There is no mass effect or significant amount of edema surrounding the metastatic sites. There are a few scattered hemorrhagic foci which do not correspond to the enhancing metastasis. Mild atrophy and mild small vessel ischemic disease. Recent PET/CT Results :Reviewed Follow pulmonary as outpatient History of hypertension: Currently blood pressure is on softer side, hold home antihypertensive medications. Abdominal pain: Patient is currently complaining of ongoing epigastric abdominal tenderness for about 2 weeks time, on and off rates 8 out of 10 in severity sharp, non radiating, associated with nausea, spontaneously resolves, has denied any melena or bright red blood per rectum, hematemesis. AST ALT alk phos total bilirubin is normal, Follow lipase Follow ultrasound abdomen, possibly will need CT abdomen and pelvis Has been started on Percocet for pain control. CODE STATUS: Full code DVT prophylaxis: on therapeutic anticoagulation with Eliquis. Attestations Medical Necessity Statement*: Patient needs to be in hospital for management of symptomatic pleural effusion, pneumonia. Coding Level of Care Code 81647 Diagnoses Pulmonary emboli I26.99 Acute cor pulmonale presence: unspecified Chronicity: unspecified Pulmonary embolism type: unspecified Pleural effusion J90 Adenocarcinoma of right lung C34.91 Pneumonia J18.9 Seropositive rheumatoid arthritis of multiple sites M05.79
--- NOTE | 2022-05-18 15:02 | XRR_ITS ---
PROCEDURE INFORMATION: Exam: XR Chest Exam date and time: 05/18/2022 2:11 PM Age: 61 years old Clinical indication: Device placement; Other: Post thoracentesis TECHNIQUE: Imaging protocol: Radiologic exam of the chest. Views: 1 view. COMPARISON: CT angio chest PE protcl [id number] 05/17/2022 1:15 PM FINDINGS: Lungs: Moderate to large right pleural effusion with patchy right lung field airspace infiltrate. Pleural spaces: See Lungs finding. Heart/Mediastinum: Unremarkable. No cardiomegaly. Bones/joints: Unremarkable. XR/XR chest 1V [id number] IMPRESSION: 1. Negative for pneumothorax. 2. Moderate to large right pleural effusion with patchy right lung field airspace infiltrate.
[2022-05-18 15:33] LABS: Appearance, Pleural Fluid CLOUDY (CLEAR); Color, Pleural Fluid Red (Pale Yellow)
[2022-05-18 15:36] LABS: Mononuclear %, Pleural Fluid 65 %; Polynuclear Cells, Pleural % 35 %
[2022-05-18 16:00] LABS: LDH Pleural Fluid 722 U/L; Total Protein Pleural Fluid 3.7 g/dL
[2022-05-18 16:01] LABS: PATH Referal YES
[2022-05-18 17:37] LABS: Cyto Order Verification Order Verified
[2022-05-18] MEDS: apixaban 5 mg Tablet PO (18:09)
--- NOTE | 2022-05-18 18:45 | US_ITS ---
WS: [id number] ULTRASOUND-GUIDED THORACENTESIS CLINICAL INFORMATION: rt sided pleural effusion COMPARISON: None. PROCEDURE: Informed consent: The risks, benefits, and alternatives of the procedure were discussed with the jeane ent. Verbal and written consent was obtained. Timeout: A timeout was performed to confirm the correct patient, procedure, and site. Site: RIGHT chest Preparation: A suitable skin site was identified. The patient was prepped and draped in usual sterile fashion. Lidocaine 1% was used for local anesthesia. Catheter: 4 Chadian One-Step catheter. Fluid Volume: 1100 ml Color: Cola 50 cc sent to the laboratory for further analysis. Complications: None. / thoracentesis [id number] IMPRESSION: Uncomplicated ultrasound-guided thoracentesis with removal of 1100 cc.
[2022-05-19 04:26] VITALS: BP 101/68; PULSE 87; RESP 15; TEMP 36.7; O2SAT 91
[2022-05-19] MEDS: acetaminophen 325 mg Tablet 650 MG PO (04:32)
[2022-05-19 05:14] LABS: Basophils # 0.1 10^3/uL (0.0-0.1); Basophils % 0.4 %; Eosinophils # 0.7 10^3/uL (0.0-0.8); Eosinophils % 5.3 %; Hematocrit 41.3 % (37.0-47.0); Hemoglobin 12.8 g/dL (11.5-15.3); Lymphocytes # 0.4 10^3/uL (0.8-4.8); Lymphocytes % 2.8 %; Mean Corpuscular Hemoglobin 29.2 pg (28.0-34.0); Mean Corpuscular Volume 94.3 fl (81-99); Mean Platelet Volume 10.1 fL (7.4-10.4); Monocytes # 1.2 10^3/uL (0.2-0.9); Monocytes % 9.4 %; Neutrophils % 81.5 %; Nucleated Red Blood Cells % 0 %; Platelet Count 152 10^3/cmm (130-400); Red Blood Count 4.38 10^6/uL (4.1-5.3); Red Cell Distribution Width 14.2 % (12.1-15.1); White Blood Count 12.5 10^3/uL (4.0-10.0)
[2022-05-19 05:19] VITALS: PULSE 83
[2022-05-19 05:41] LABS: Alanine Aminotransferase 6 U/L (0-33); Albumin Level 2.8 g/dL (3.5-5.2); Alkaline Phosphatase 62 U/L (35-105); Anion Gap 15.1 (5-19); Aspartate Amino Transferase 8 U/L (0-32); Blood Urea Nitrogen 16 mg/dL (8-23); Calcium 8.2 mg/dL (8.5-10.5); Carbon Dioxide 25 mmol/L (22-29); Chloride 104 mmol/L (98-107); Globulin 2.2 g/dL (1.3-4.6); Glomerular Filtration Rate 84.8 mL/min (90-130); Glucose 92 mg/dL (65-115); Lipase 10 U/L (13-60); Osmolality Calculated 291 mOsm/kg (285-295); Potassium 4.1 mmol/L (3.5-5.1); Sodium 140 mmol/L (136-145); Total Bilirubin 0.4 mg/dL (0.15-1.2)
[2022-05-19 08:00] VITALS: BP 100/69; PULSE 72; PULSE 81; RESP 18; TEMP 36.6; O2SAT 93; O2SAT 94
[2022-05-19] MEDS: piperacillin-tazobactam 3.375 GM in sodium chloride 0.9% (plus) 50 ML IV (08:56)
[2022-05-19] MEDS: predniSONE 5 mg Tablet PO (09:02)
[2022-05-19] MEDS: gabapentin 400 mg Capsule PO (09:02)
[2022-05-19] MEDS: apixaban 5 mg Tablet PO (09:02)
--- NOTE | 2022-05-19 10:13 | P.DS_ITS ---
Discharge Providers Date of Admission: 05/17/22 16:15 Date of Discharge: May 19, 2022 Attending Provider at Admission: Deepak Flores MD Attending Provider at Discharge: Deepak Flores MD Primary Care Provider: Gunnar Corey MD Diagnoses at Discharge Discharge Diagnosis (1) Pulmonary emboli: Status: Acute Qualifiers: Acute cor pulmonale presence: unspecified Chronicity: unspecified Pulmonary embolism type: unspecified Qualified Code(s): I26.99 - Other pulmonary embolism without acute cor pulmonale (2) Pleural effusion: Status: Acute (3) Adenocarcinoma of right lung: Status: Acute (4) Pneumonia: Status: Acute (5) Seropositive rheumatoid arthritis of multiple sites: Status: Acute Reason for Visit Reason for Visit: SOB Hospital Course Hospital Course HPI: Sabrina Mendenhall is a 61 year old female with past medical history of hypertension, COPD on 3 L home oxygen, CA right lung, came in with chief complaint of worsening shortness of breath, She was being managed as outpatient for pneumonia by the PCP, she was on levofloxacin, she failed to respond to levofloxacin, shortness of breath continued to progressively worsen.currently she is complaining of sob with even minimum exertion. Currently she has denied fever, chest pain, palpitation. CTA chest: Has shown?Nonocclusive subsegmental pulmonary emboli LEFT lower lobe, moderate right pleural effusion, Increased areas of consolidation and spiculation throughout the RIGHT lung. Spiculated mass described in the RIGHT upper lobe is partially obscured by progressive airspace disease which may be lymphangitic spread of tumor or pneumonia. Mediastinal and hilar lymphadenopathy.? Filling defects in the LEFT subclavian vein. Tumor thrombus admixing of contrast with blood. She was admitted for the management of: Symptomatic shortness of breath secondary to pneumonia as well as significant right-sided pleural effusion, as well as acute PE, Patient was empirically kept on broad-spectrum antibiotics during the hospital stay she was on Zosyn, she also underwent, ultrasound-guided right-sided thoracentesis with removal of 1100 cc red-colored exudative pleural effusion, pending cytology. She was continued on Eliquis for her pulmonary embolism, she was also continued on other conservative Respiratory support measures, DuoNebs supplemental oxygen as needed, blood cultures were negative, urine Legionella antigen negative, bacterial antigen panel negative. Postthoracentesis shortness of breath improved, she was saturating well at her baseline home oxygen.She was continued on levofloxacin for another 7 days for possible underlying pneumonia Though the overall clinical suspicion is low, shortness of breath is likely primarily due to PE as well as symptomatic large right-sided pleural effusion. Since the patient was complaining of epigastric as well as right upper quadrant abdominal pain ultrasound abdomen was done: Which showed: ?Coarse heterogeneous somewhat hypoechoic liver echotexture. Echogenic portal triads visualized in the liver, although nonspecific, can be seen with acute hepatitis.Mild fluid distention of the gallbladder. No g allbladder wall thickening or pericholecystic fluid.Normal common bile duct. Overall patient has responded well to above medical management and was being discharged in stable condition to home She will continue to follow with pulmonary as well as oncology and primary care physician as outpatient. Physical Exam Const: COMMON NORMALS: patient oriented x3 HENMT: COMMON NORMALS: normocephalic and atraumatic HEAD & SCALP: normocephalic and atraumatic Resp: COMMON NORMALS: clear to auscultation bilaterally EFFORT & INSPECTION: Yes symmetric chest movement AUSCULTATION: clear to auscultation bilaterally OTHER: Diminished air entry over rt lung stark Cardio: COMMON NORMALS: regular rate, regular rhythm, S1 normal heart sound present, S2 normal heart sound present, No gallops present (Cardio), No murmurs present (Cardio), No rub (Cardio) and Peripheral pulses 2+ throughout RATE: regular rate RHYTHM: regular rhythm HEART SOUNDS: S1 normal heart sound present and S2 normal heart sound present PERIPHERAL PULSES: Peripheral pulses 2+ throughout GI: COMMON NORMALS: Normal to inspection, nondistended, normoactive bowel sounds present, Soft to palpation, non-tender, No hepatosplenomegaly present and no masses AUSCULTATION: Yes normoactive bowel sounds PALPATION: Yes Soft to palpation and Yes No hepatosplenomegaly present RECTAL EXAM: deferred OTHER: Epigastric abdominal tenderness, no guarding no rigidity no rebound tenderness Extremity: COMMON NORMALS: no clubbing, cyanosis or edema and no pedal edema Neuro: COMMON NORMALS: patient oriented x3 Discharge Data Studies Completed and Pending Completed Studies During Hospitalization Category Date Time Status CT angio chest PE protcl [id number] Stat Cat Scan 05/17/22 13:02 Completed XR chest 1V [id number] Routine Exams 05/18/22 15:02 Completed US abdomen limited [id number] Routine Ultrasound 05/18/22 09:51 Completed US thoracentesis [id number] Routine Ultrasound 05/18/22 18:45 Completed Pending at discharge Category Date Time Status Blood Culture Stat Lab 05/17/22 13:57 Results Complete Blood Count w/Auto AM LABS Lab 05/20/22 04:00 Ordered Comprehensive Metabolic Panel AM LABS Lab 05/20/22 04:00 Ordered MRSA by PCR AM LABS Lab 05/18/22 04:00 Ordered Sputum Culture and Gram Stain Routine Lab 05/17/22 16:19 Uncollected Cytology [PTH] Routine Pth 05/17/22 15:03 Received Radiology Impressions Chest CTA 05/17/22 13:02 IMPRESSION: 1. Nonocclusive subsegmental pulmonary emboli LEFT lower lobe. 2. Moderate RIGHT pleural effusion has increased in size since 03/25/2022. 3. Increased areas of consolidation and spiculation throughout the RIGHT lung. Spiculated mass described in the RIGHT upper lobe is partially obscured by progressive airspace disease which may be lymphangitic spread of tumor or pneumonia. 4. Mediastinal and hilar lymphadenopathy. 5. Filling defects in the LEFT subclavian vein. Tumor thrombus admixing of contrast with blood. Study submitted for interpretation at 2:32 PM. Abdomen Ultrasound 05/18/22 09:51 IMPRESSION: 1. Coarse heterogeneous somewhat hypoechoic liver echotexture. Recommend correlation with liver function studies. No visualized focal lesions. 2. Echogenic portal triads visualized in the liver, although nonspecific, can be seen with acute hepatitis. 3. Mild fluid distention of the gallbladder. No gallbladder wall thickening or pericholecystic fluid. 4. Normal common bile duct. 5. No hydronephrosis in RIGHT kidney. Chest X-Ray 05/18/22 15:02 IMPRESSION: 1. Negative for pneumothorax. 2. Moderate to large right pleural effusion with patchy right lung field airspace infiltrate. Thoracentesis Ultrasound 05/18/22 18:45 IMPRESSION: Uncomplicated ultrasound-guided thoracentesis with removal of 1100 cc. Laboratory Results WBC 12.5 10^3/uL (4.0-10.0) H 05/19/22 04:44 RBC 4.38 10^6/uL (4.1-5.3) 05/19/22 04:44 Hgb 12.8 g/dL (11.5-15.3) 05/19/22 04:44 Hct 41.3 % (37.0-47.0) 05/19/22 04:44 MCV 94.3 fl (81-99) 05/19/22 04:44 MCH 29.2 pg (28.0-34.0) 05/19/22 04:44 MCHC 31.0 g/dL (30.0-36.0) 05/19/22 04:44 RDW 14.2 % (12.1-15.1) 05/19/22 04:44 Plt Count 152 10^3/cmm (130-400) 05/19/22 04:44 MPV 10.1 fL (7.4-10.4) 05/19/22 04:44 Neut % (Auto) 81.5 % 05/19/22 04:44 Lymph % (Auto) 2.8 % 05/19/22 04:44 Gonzales % (Auto) 9.4 % 05/19/22 04:44 Eos % (Auto) 5.3 % 05/19/22 04:44 Baso % (Auto) 0.4 % 05/19/22 04:44 Neut # (Auto) 10.20 10^3/uL (1.8-7.7) H 05/19/22 04:44 Lymph # (Auto) 0.4 10^3/uL (0.8-4.8) L 05/19/22 04:44 Gonzales # (Auto) 1.2 10^3/uL (0.2-0.9) H 05/19/22 04:44 Eos # (Auto) 0.7 10^3/uL (0.0-0.8) 05/19/22 04:44 Baso # (Auto) 0.1 10^3/uL (0.0-0.1) 05/19/22 04:44 Nucleated RBC % (auto) 0 % 05/19/22 04:44 Total Counted Not Reportable 05/18/22 15:03 Nucleated RBCs # 0.0 /100WBC 05/19/22 04:44 PT 18.30 SECONDS (12.1-14.9) H 05/18/22 04:08 INR 1.47 (0.8-1.2) H 05/18/22 04:08 Specimen Type Arterial 05/17/22 13:32 Sample Site Radial, left 05/17/22 13:32 ABG pH 7.42 (7.35-7.45) 05/17/22 13:32 ABG pCO2 41.1 mmHg (35-45) 05/17/22 13:32 ABG pO2 63.4 mmHg (80.0-100.0) L 05/17/22 13:32 ABG HCO3 26.6 mmol/L (22-26) H 05/17/22 13:32 ABG Base Excess 1.9 mmol/L (-2.0-2.0) 05/17/22 13:32 Jesus Test Pos 05/17/22 13:32 Hematocrit 42.2 % (37-47) 05/17/22 13:32 Hgb O2 Saturation 91.7 % (95-100) L 05/17/22 13:32 Carboxyhemoglobin 1.5 %THgb (0.4-20.1) 05/17/22 13:32 Methemoglobin 0.6 % (0.4-1.5) 05/17/22 13:32 Total Hemoglobin 13.8 g/dL (12-16) 05/17/22 13:32 O2 Delivery Device Nc 05/17/22 13:32 O2 Liters/Min 5.0 % 05/17/22 13:32 Global Marketing Coordinator ID Cak 05/17/22 13:32 Sodium 140 mmol/L (136-145) 05/19/22 04:44 Potassium 4.1 mmol/L (3.5-5.1) 05/19/22 04:44 Chloride 104 mmol/L (98-107) 05/19/22 04:44 Carbon Dioxide 25 mmol/L (22-29) 05/19/22 04:44 Anion Gap 15.1 (5-19) 05/19/22 04:44 BUN 16 mg/dL (8-23) 05/19/22 04:44 Creatinine 0.7 mg/dL (0.5-0.9) 05/19/22 04:44 GFR Calculation 84.8 mL/min (90-130) L 05/19/22 04:44 Glucose 92 mg/dL (65-115) 05/19/22 04:44 Calculated Osmolality 291 mOsm/kg (285-295) 05/19/22 04:44 Lactate 1.1 mmol/L (0.5-2.2) 05/17/22 13:05 Calcium 8.2 mg/dL (8.5-10.5) L 05/19/22 04:44 Magnesium 2.1 mg/dL (1.7-2.3) 05/17/22 13:05 Total Bilirubin 0.4 mg/dL (0.15-1.2) 05/19/22 04:44 AST 8 U/L (0-32) 05/19/22 04:44 ALT 6 U/L (0-33) 05/19/22 04:44 Alkaline Phosphatase 62 U/L (35-105) 05/19/22 04:44 NT-Pro-B Natriuret Pep 96 pg/mL (0-125) 05/17/22 13:05 Total Protein 5.0 g/dL (6.6-8.7) L 05/19/22 04:44 Albumin 2.8 g/dL (3.5-5.2) L 05/19/22 04:44 Globulin 2.2 g/dL (1.3-4.6) 05/19/22 04:44 Lipase 10 U/L (13-60) L 05/19/22 04:44 Procalcitonin 0.04 ng/mL (0-0.5) 05/18/22 04:08 Pleural Color Red (Pale Yellow) H 05/18/22 15:03 Pleural Appearance Cloudy (CLEAR) 05/18/22 15:03 Pleural WBC 1005.000 /uL (0-1000) H 05/18/22 15:03 Pleural RBC 59.000 10^3/uL 05/18/22 15:03 Pleural Other Cells Not Reportable 05/18/22 15:03 Pleural Polynuclear % 35 % 05/18/22 15:03 Pleural Mononuclear % 65 % 05/18/22 15:03 Pleural Total Protein 3.7 g/dL 05/18/22 15:03 Pleural LDH 722 U/L 05/18/22 15:03 Pleural Glucose 27.0 mg/dL 05/18/22 15:03 Path Cons w/Slide Yes 05/18/22 15:03 Vitals Last Vital Signs Temp 97.9 F 05/19/22 08:00 Pulse 72 03/15/23 08:00 Resp 18 05/19/22 08:00 BP 100/69 05/19/22 08:00 Pulse Ox 94 05/19/22 08:00 O2 Del Method 05/19/22 08:00 O2 Flow Rate 4.5 05/19/22 08:00 Discharge Plan Discharge Patient Disposition: Home Condition: Stable Prescriptions: Continued Xeljanz 5 mg tablet 5 mg PO BID Qty: 60 4RF prednisone 5 mg tablet 5 mg PO DAILY Qty: 90 1RF Eliquis 5 mg tablet 5 mg PO BID Qty: 60 6RF gabapentin 400 mg capsule 400 mg PO TID cyanocobalamin (vitamin B-12) [Vitamin B-12] 100 mcg Tablet 100 mcg PO DAILY amlodipine 10 mg tablet 5 mg PO DAILY levofloxacin 500 mg tablet 500 mg PO DAILY 7 Days Qty: 7 0RF Discontinued losartan 25 mg tablet 25 mg PO DAILY Qty: 30 6RF lisinopril 10 mg Tablet 10 mg PO DAILY Discharge Orders: Discharge Order (Routine); Ordered 05/19/22 Ordered By: Deepak Flores Referrals: Gunnar Corey MD [Primary Care Provider] - 05/26/22 10:50 am Patient Instructions: Levofloxacin (By mouth), Using Oxygen at Home (GEN), Pleural Effusion (GEN), Opioid Safety Discharge Attestations Time Spent in Discharge Care*: greater than 30 min Status at Discharge: Cognitive status at discharge: cognitively intact , Behavioral status at discharge: cooperative , Quality Metrics Clinical Quality Measures [ No reported AMI, CVA or VTE this stay] Coding Level of Care Code Acute Code for Chg Fwd Diagnoses Pulmonary emboli I26.99 Acute cor pulmonale presence: unspecified Chronicity: unspecified Pulmonary embolism type: unspecified Pleural effusion J90 Adenocarcinoma of right lung C34.91 Pneumonia J18.9 Seropositive rheumatoid arthritis of multiple sites M05.79
[2022-05-19 11:37] VITALS: BP 114/80; PULSE 91; RESP 18; TEMP 36.5; O2SAT 91
[2022-05-19 12:48] VITALS: BP 114/80; PULSE 91; RESP 18; TEMP 36.5; O2SAT 91
== END 2022-05-19 12:20 | disposition home or self-care (01) | DRG 193 ==
LOC: ER 15:06 → MEDSURG 17:38
PROVIDERS: Admitting Provider Internal Medicine; Emergency Provider Emergency Medicine; PCP Family Medicine; Visit Provider Internal Medicine
DX: J18.9 Pneumonia, unspecified organism (principal); I26.99 Other pulmonary embolism without acute cor pulmonale; J91.8 Pleural effusion in other conditions classified elsewhere; C34.11 Malignant neoplasm of upper lobe, right bronchus or lung; C79.31 Secondary malignant neoplasm of brain; J44.9 Chronic obstructive pulmonary disease, unspecified; M05.79 Rheumatoid arthritis with rheumatoid factor of multiple sites without organ or systems involvement; I10 Essential (primary) hypertension; R10.13 Epigastric pain; Z79.01 Long term (current) use of anticoagulants; Z79.899 Other long term (current) drug therapy; Z87.891 Personal history of nicotine dependence; Z99.81 Dependence on supplemental oxygen
CPT/HCPCS: 32555; 36415; 36600; 71045; 71275; 76705; 80053; 80503; 82805; 82945; 83605; 83615; 83690; 83735; 83880; 84145; 84157; 85025; 85610; 86403; 87040; 87449; 88112; 88305; 89050; 93005; 96365; 99285; J2543; J7512; Q9967